=== PATIENT | female | born 1980 | race Caucasian/White ===

== ENCOUNTER 2018-05-25 17:50 | Inpatient (IN) | payer OTHER, MEDICAID, SELFPAY ==
[2018-05-25] VITALS (7 sets, daily range): BP systolic 124–133; BP diastolic 70–84; PULSE 105–120; RESP 20–32; TEMP 37.3–39; O2SAT 79–98; BMI 44.4
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
[2018-05-25] MEDS: ONDANSETRON 4 MG/2 ML INJ IV (18:50)
[2018-05-25] MEDS: ALBUTEROL/IPRATROPIUM 3 ML AMPUL INH ×3 (18:58)
[2018-05-25 19:12] LABS: Add Manual Diff / Slide Review NO; Basophils Absolute Auto 0 /uL (0-100); Basophils Percent Auto 0.4 % (0-2); Eosinophils Absolute Auto 0 /uL (0-450); Hematocrit 41.8 % (36-46); Hemoglobin 13.8 g/dL (12.0-16.0); Lymphocytes Absolute Auto 1500 /uL (1100-4500); Lymphocytes Percent Auto 14.7 % (25-40); Mean Corpuscular HGB Conc 33.1 % (30-36); Mean Corpuscular Hemoglobin 30.3 PG (26-34); Mean Corpuscular Volume 91.6 fL (80-100); Monocytes Absolute Auto 800 /uL (0-900); Monocytes Percent Auto 8.2 % (3-14); Neutrophils Absolute Auto 7800 /uL (1500-7000); Neutrophils Percent Auto 76.7 % (50-75); Platelet Count 294 X10^3/uL (150-400); Red Blood Cell Count 4.57 X10^6/uL (4.0-5.2); Red Cell Distribution Width 14.6 % (11.6-14.8); White Blood Cell Count 10.1 X10^3/uL (4.5-11.0)
[2018-05-25] MEDS: ACETAMINOPHEN 325 MG TABLET 650 MG PO (19:21)
[2018-05-25 19:24] LABS: Alanine Aminotransferase 49 IU/L (9-52); Albumin Globulin Ratio 1.4 (1.0-2.8); Alkaline Phosphatase 80 U/L (38-126); Aspartate Aminotransferase 36 IU/L (14-36); BUN Creatinine Ratio 17.5 (6-22); Bilirubin Total 0.4 mg/dL (0.2-1.3); Blood Urea Nitrogen 14 mg/dL (7-17); Calcium 8.9 mg/dL (8.4-10.2); Carbon Dioxide 34 mmol/L (22-32); Chloride 93 mmol/L (98-107); Estimated Glomerular Filt Rate > 60.0 mL/min (>60); Globulin 2.9 g/dL (1.7-4.1); Glucose 117 mg/dL (70-100); HEMOLYSIS < 15 (0-50); Potassium 3.9 mmol/L (3.4-5.1); Sodium 136 mmol/L (137-145); Total Protein 6.9 g/dL (6.3-8.2)
[2018-05-25] MEDS: methylPREDNISolone 125 MG/2 ML VIAL IV (19:25)
[2018-05-25] MEDS: levoFLOXacin 750 MG/150 ML PIGGYBACK 100 MG IV (19:25)
[2018-05-25] MEDS: SODIUM CHLORIDE 0.9% 500 ML IV (19:31)
[2018-05-25 19:32] LABS: B Type Natriuretic Peptide < 100 (<100)
[2018-05-25 19:46] LABS: Procalcitonin 0.07 ng/mL (<0.5)
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
--- NOTE | 2018-05-25 22:44 | PC.NURSE ---
Pt admitted to acute care from ED. Arrived to unit on 3L O2 via NC SpO2 96%. On cont pulse ox. Receiving fluid bolus of NS per protocol. Lungs are wheezy throughout, although pt appears to be comfortable at rest. Voided using BSC, steady on feet. C/O headache 10/24, provider notified. Awaiting med verification from pharmacy. Pt had multiple home medications with her, sent to pharmacy. A/Ox4, able to make needs known. Call light and bedside table within reach. Will cont to monitor.
[2018-05-25] MEDS: PANTOPRAZOLE 40 MG VIAL IV (23:37)
[2018-05-25] MEDS: MAGNESIUM SULFATE 2 GM/50 ML PIGGYBACK IV (23:38)
[2018-05-25] MEDS: MONTELUKAST 10 MG TABLET PO (23:50)
[2018-05-26] VITALS (12 sets, daily range): BP systolic 116–143; BP diastolic 43–82; PULSE 67–104; RESP 16–25; TEMP 36.1–37; O2SAT 94–99
--- NOTE | 2018-05-26 00:04 | PC.NURSE ---
Addendum entered by Sarah Grande R.N. 05/26/18 06:18: Earlier nasal swab was obtained for respiratory panel by PCR and RSV detected so patient was placed on droplet isolation. Noted O2 sats earlier were dropping down into mid 80's so O2 was increased to 5L/min but then able to weaned down to 3L and was 97%. Currently feeling more SOB and sat at 90% so increased back to 4L/min. Informed patient of results of respiratory panel and need for isolation; verbalizes understanding. Original Note: Patient is alert and oriented. Breath sounds tight with expiratory wheezes/squeak throughout. On oxygen at 3L/min per NC with sat of 92%; SOB at rest. Is on continuous pulse oximetry. Intermittent croupy sounding, nonproductive cough. HRR but tachy at 110 bpm. On telemetry and has been SR-ST. Denies nausea. BT present and abdomen is soft. Independent with bed mobility. SBA to BSC and voiding without dysuria, frequency or urgency. Complains of 7/10 headache exacerbated by cough; Fioricet ordered but unavailable in night pharmacy and too early to give additional Tylenol; message left for in house WELFARE SPECIALIST. Afebrile at current time. Fall risk score is moderate but patient oriented and calls for assist appropriately. TAMEKA stockings applied.
[2018-05-26] MEDS: diphenhydrAMINE 50 MG/ML VIAL 25 MG IV (01:00)
[2018-05-26] MEDS: KETOROLAC 15 MG/ML VIAL IV (01:00)
[2018-05-26] MEDS: PROCHLORPERAZINE 10 MG/2 ML VIAL 5 MG IV (01:00)
[2018-05-26 04:10] LABS: Adenovirus Not Detected (Not Detect); Bordetella pertussis Not Detected (Not Detect); Chlamydophila pneumoniae Not Detected (Not Detect); Coronavirus 229E Not Detected (Not Detect); Coronavirus HKU1 Not Detected (Not Detect); Coronavirus NL 63 Not Detected (Not Detect); Coronavirus OC43 Not Detected (Not Detect); Human Metapneumovirus Not Detected (Not Detect); Human Rhinovirus/Enterovirus Not Detected (Not Detect); Influenza A Not Detected (Not Detect); Influenza B Not Detected (Not Detect); Mycoplasma pneumoniae Not Detected (Not Detect); Parainfluenza Virus 1 Not Detected (Not Detect); Parainfluenza Virus 2 Not Detected (Not Detect); Parainfluenza Virus 3 Not Detected (Not Detect); Parainfluenza Virus 4 Not Detected (Not Detect); Respiratory Syncytial Virus Detected (Not Detect)
[2018-05-26] MEDS: ACETAMINOPHEN 325 MG TABLET 650 MG PO (06:56)
[2018-05-26] MEDS: SODIUM CHLORIDE 0.9% FLUSH 10 ML IV ×3 (07:07→20:09)
[2018-05-26] MEDS: SODIUM CHLORIDE 0.9% 1,000 ML 80 ML IV ×2 (07:07→20:18)
[2018-05-26 07:29] LABS: Add Manual Diff / Slide Review NO; Basophils Absolute Auto 0 /uL (0-100); Basophils Percent Auto 0.2 % (0-2); Eosinophils Absolute Auto 0 /uL (0-450); Hematocrit 41.4 % (36-46); Hemoglobin 13.5 g/dL (12.0-16.0); Lymphocytes Absolute Auto 1000 /uL (1100-4500); Lymphocytes Percent Auto 11.3 % (25-40); Mean Corpuscular HGB Conc 32.5 % (30-36); Mean Corpuscular Hemoglobin 30.2 PG (26-34); Mean Corpuscular Volume 92.9 fL (80-100); Monocytes Absolute Auto 400 /uL (0-900); Monocytes Percent Auto 4.1 % (3-14); Neutrophils Absolute Auto 7300 /uL (1500-7000); Neutrophils Percent Auto 84.4 % (50-75); Platelet Count 255 X10^3/uL (150-400); Red Blood Cell Count 4.46 X10^6/uL (4.0-5.2); White Blood Cell Count 8.7 X10^3/uL (4.5-11.0)
[2018-05-26 07:38] LABS: Blood Urea Nitrogen 15 mg/dL (7-17); Carbon Dioxide 31 mmol/L (22-32); Chloride 100 mmol/L (98-107); Estimated Glomerular Filt Rate > 60.0 mL/min (>60); Glucose 261 mg/dL (70-100); HEMOLYSIS < 15 (0-50); Magnesium 2.8 mg/dL (1.6-2.3); Potassium 4.5 mmol/L (3.4-5.1); Sodium 138 mmol/L (137-145)
--- NOTE | 2018-05-26 08:35 | P.PN_ITS ---
Subjective Interval history: States her breathing is slightly better than prior to admission. There is still some shortness of breath at rest. Exam Vital Signs (past 8 hours): - 05/26/18 01:15 05/26/18 05:00 05/26/18 06:36 Temperature 98.6 F 97.0 F L Pulse Rate 104 H 84 80 Respiratory Rate 25 H 24 20 Blood Pressure 143/82 H 127/43 L Pulse Oximetry 94 97 95 Oxygen Delivery Method Nasal Cannula Oxygen Flow Rate 4 Narrative Exam Narrative: Constitutional: NAD but weak exhausted obese female w/BMI 44.7 and who looks somewhat older than her stated age of 37. Nasal cannula in place for supplemental O2 Neurologic: AOx3, no focal neurological deficits Head: NC, AT Eyes: PERRL, EOMI Nose: external nose normal, mild rhinorrhea, residual blood intranasal (noted to have minor epistaxis recently) Throat: dry MM, oropharynx w/o exudate Neck: no masses, lymphadenopathy, or JVD Chest / Respiratory: On anterior exam there is decreased air entry no rales were present or wheezes Heart / CV: S1S2, no murmur Abdomen / GI: round, NT, ND, + BS, no organomegaly : no suprapubic tenderness, no CVA Peripheral / Vascular: warm to touch, DP and PT pulses palpable, no edema Musc: full ROM of upper and lower extremities, adequate muscle tone and bulk Skin: Bruising on the abdomen from Lovenox shots at [facility] Objective Labs Result Diagrams: 05/26/18 06:40 05/26/18 06:40 Labs: Laboratory Results - last 24 hr 05/25/18 05/25/18 05/25/18 18:55 18:55 18:55 WBC 10.1 RBC 4.57 Hgb 13.8 Hct 41.8 MCV 91.6 MCH 30.3 MCHC 33.1 RDW 14.6 Plt Count 294 Neut % (Auto) 76.7 H Lymph % (Auto) 14.7 L [place] % (Auto) 8.2 Eos % (Auto) 0.0 L Baso % (Auto) 0.4 Neut # (Auto) 7800 H Lymph # (Auto) 1500 [place] # (Auto) 800 Eos # (Auto) 0 Baso # (Auto) 0 Sodium 136 L Potassium 3.9 Chloride 93 L Carbon Dioxide 34 H BUN 14 Creatinine 0.80 Estimated GFR > 60.0 BUN/Creatinine Ratio 17.5 Glucose 117 H Lactate Calcium 8.9 Magnesium Total Bilirubin 0.4 AST 36 ALT 49 Alkaline Phosphatase 80 B-Natriuretic Peptide < 100 Total Protein 6.9 Albumin 4.0 Globulin 2.9 Albumin/Globulin Ratio 1.4 Procalcitonin 0.07 Chlamy pneumoniae PCR Adenovirus (PCR) B.parapertussis DNA PCR Coronavirus OC43 (PCR) Coronavirus HKU1 (PCR) Coronavirus 229E (PCR) Coronavirus NL63 (PCR) Human Metapneumovir PCR Influenza Type A (PCR) Influenza Type B (PCR) M. pneumoniae (PCR) Parainfluenza 1 (PCR) Parainfluenza 2 (PCR) Parainfluenza 3 (PCR) Parainfluenza 4 (PCR) RSV (PCR) Entero/Rhino (PCR) 05/25/18 05/26/18 05/26/18 18:55 02:46 06:40 WBC 8.7 RBC 4.46 Hgb 13.5 Hct 41.4 MCV 92.9 MCH 30.2 MCHC 32.5 RDW 15.0 H Plt Count 255 Neut % (Auto) 84.4 H Lymph % (Auto) 11.3 L [place] % (Auto) 4.1 Eos % (Auto) 0.0 L Baso % (Auto) 0.2 Neut # (Auto) 7300 H Lymph # (Auto) 1000 L [place] # (Auto) 400 Eos # (Auto) 0 Baso # (Auto) 0 Sodium Potassium Chloride Carbon Dioxide BUN Creatinine Estimated GFR BUN/Creatinine Ratio Glucose Lactate 1.0 Calcium Magnesium Total Bilirubin AST ALT Alkaline Phosphatase B-Natriuretic Peptide Total Protein Albumin Globulin Albumin/Globulin Ratio Procalcitonin Chlamy pneumoniae PCR Not detected Adenovirus (PCR) Not detected B.parapertussis DNA PCR Not detected Coronavirus OC43 (PCR) Not detected Coronavirus HKU1 (PCR) Not detected Coronavirus 229E (PCR) Not detected Coronavirus NL63 (PCR) Not detected Human Metapneumovir PCR Not detected Influenza Type A (PCR) Not detected Influenza Type B (PCR) Not detected M. pneumoniae (PCR) Not detected Parainfluenza 1 (PCR) Not detected Parainfluenza 2 (PCR) Not detected Parainfluenza 3 (PCR) Not detected Parainfluenza 4 (PCR) Not detected RSV (PCR) Detected H Entero/Rhino (PCR) Not detected 05/26/18 06:40 WBC RBC Hgb Hct MCV MCH MCHC RDW Plt Count Neut % (Auto) Lymph % (Auto) [place] % (Auto) Eos % (Auto) Baso % (Auto) Neut # (Auto) Lymph # (Auto) [place] # (Auto) Eos # (Auto) Baso # (Auto) Sodium 138 Potassium 4.5 Chloride 100 Carbon Dioxide 31 BUN 15 Creatinine 0.60 Estimated GFR > 60.0 BUN/Creatinine Ratio 25.0 H Glucose 261 H D Lactate Calcium 8.0 L Magnesium 2.8 H Total Bilirubin AST ALT Alkaline Phosphatase B-Natriuretic Peptide Total Protein Albumin Globulin Albumin/Globulin Ratio Procalcitonin Chlamy pneumoniae PCR Adenovirus (PCR) B.parapertussis DNA PCR Coronavirus OC43 (PCR) Coronavirus HKU1 (PCR) Coronavirus 229E (PCR) Coronavirus NL63 (PCR) Human Metapneumovir PCR Influenza Type A (PCR) Influenza Type B (PCR) M. pneumoniae (PCR) Parainfluenza 1 (PCR) Parainfluenza 2 (PCR) Parainfluenza 3 (PCR) Parainfluenza 4 (PCR) RSV (PCR) Entero/Rhino (PCR) Assessment & Plan Assessment Narrative: 1. Acute respiratory failure with hypoxia, present admission -This is 2/2 acute asthma exacerbation -CXR with decreased lung volumes and hazy ill-defined ground glass opacities throughout both lungs. No pleural effusion or pneumothorax. -Febrile, tachypneic, tachycardic and hypoxic on presentation. Initial labs unremarkable for leukocytosis, elevated lactate, and positive procalcitonin level. - she will be on Telemetry -continue scheduled albuterol treatments Q4H. Adjust per RT protocol -continue Solu-Medrol 60 mg IV BID -continue which Singulair 10 mg daily at bedtime which was started on admission -continue Protonix 40 mg IV daily, d/c at discharge -Respiratory viral panel was ordered on admission and will follow -Blood Cx and sputum cx pending -Continue levofloxacin to complete a 5 day course, last day on 05/26/18 then d/c 2. Acute headache, present on admission, severe -resolve when seen this morning -Headache cocktail with IV Toradol, Benadryl, and Compazine x1 was given on admission Hypovolemia, present on admission This was 2/2 increased metabolic demand in the setting of respiratory failure an d febrile state -IVF bolus per sepsis protocol, followed by IV maintenance fluids at 80 ml / hr -serial BMPs
[2018-05-26] MEDS: levoFLOXacin 250 MG TABLET 750 MG PO (09:00)
[2018-05-26] MEDS: INFLUENZA VACCINE 0.5 ML SYRINGE IM (09:00)
[2018-05-26] MEDS: methylPREDNISolone 125 MG/2 ML VIAL 60 MG IV ×2 (09:00→20:07)
[2018-05-26] MEDS: PANTOPRAZOLE 40 MG VIAL IV (09:00)
[2018-05-26] MEDS: ALBUTEROL 2.5 MG/3 ML NEB (ADULT) INH ×4 (10:20→21:05)
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
[2018-05-26] MEDS: MONTELUKAST 10 MG TABLET PO (17:46)
[2018-05-26] MEDS: ENOXAPARIN 30 MG/0.3 ML SYRINGE SUBCUT (20:07)
--- NOTE | 2018-05-26 21:24 | PC.NURSE ---
2000- titrated O2 down to 2Lnc humidified, SpO2 95%, provided pt with Q-tips and lub jelly for nare comfort, LS insp/exp audible and ascultation wheezes, SOB with exertion and slight at rest, non-productive intermittent cough LAC NS @ 80. VSS, tele in place with NSR x 2. 1PA to BSC, bed alarm on.
[2018-05-27] VITALS (15 sets, daily range): BP systolic 116–140; BP diastolic 67–83; PULSE 66–82; RESP 16–20; TEMP 36.4–36.9; O2SAT 91–98
--- NOTE | 2018-05-27 00:44 | PC.NURSE ---
Addendum entered by Sarah Grande R.N. 05/27/18 01:05: Medicated with Tessalon for complaint of cough. Original Note: Patient is alert and oriented. Breath sounds with improved aeration but increased expiratory rhonchi and still tight sounding. States she has had cough productive of white sputum. Oxygen at 2L/min per NC with sat of 96%; remains on continuous pulse oximetry. HRR; telemetry reading was SR w/BBB. Denies nausea. BT present and is passing flatus. Denies dysuria, frequency or urgency. Turns self in bed and gets up to BSC with SBA. Denies any pain at present time. Wearing bilateral TAMEKA stockings; states she is experiencing some numbness in right foot which she has had in past. Fall risk score is moderate; bed alarm is activated for safety and patient verbalizes understanding. Continues on droplet precautions due to RSV positive.
[2018-05-27] MEDS: BENZONATATE 100 MG CAPSULE PO ×2 (01:04→17:08)
[2018-05-27] MEDS: ALBUTEROL 2.5 MG/3 ML NEB (ADULT) INH ×6 (03:51→23:56)
[2018-05-27 05:38] LABS: Add Manual Diff / Slide Review NO; Basophils Absolute Auto 100 /uL (0-100); Basophils Percent Auto 0.6 % (0-2); Eosinophils Absolute Auto 0 /uL (0-450); Hematocrit 40.7 % (36-46); Lymphocytes Absolute Auto 1800 /uL (1100-4500); Mean Corpuscular HGB Conc 31.9 % (30-36); Mean Corpuscular Hemoglobin 29.9 PG (26-34); Mean Corpuscular Volume 93.7 fL (80-100); Monocytes Absolute Auto 1000 /uL (0-900); Monocytes Percent Auto 9.1 % (3-14); Neutrophils Absolute Auto 8600 /uL (1500-7000); Neutrophils Percent Auto 74.3 % (50-75); Platelet Count 264 X10^3/uL (150-400); Red Blood Cell Count 4.35 X10^6/uL (4.0-5.2); Red Cell Distribution Width 15.1 % (11.6-14.8); White Blood Cell Count 11.5 X10^3/uL (4.5-11.0)
[2018-05-27 05:45] LABS: BUN Creatinine Ratio 28.3 (6-22); Blood Urea Nitrogen 17 mg/dL (7-17); Calcium 8.5 mg/dL (8.4-10.2); Carbon Dioxide 34 mmol/L (22-32); Chloride 98 mmol/L (98-107); Estimated Glomerular Filt Rate > 60.0 mL/min (>60); Glucose 310 mg/dL (70-100); HEMOLYSIS < 15 (0-50); Magnesium 2.4 mg/dL (1.6-2.3); Potassium 4.7 mmol/L (3.4-5.1); Sodium 138 mmol/L (137-145)
--- NOTE | 2018-05-27 06:00 | DI.RAD.S_ITS ---
PROCEDURE: XR CHEST 2V INDICATIONS: PNA / asthma exacerbation / hypoxia TECHNIQUE: 2 views of the chest were acquired. COMPARISON: [facility], CR, XR CHEST 2V, 05/25/2018, 18:27. FINDINGS: Surgical changes and devices: None. Lungs and pleura: No acute consolidation. Scattered subsegmental atelectasis and/or scarring. No pleural effusions or pneumothorax. Decreased lung volumes as before Mediastinum: Mediastinal contours are normal. Heart size is normal. Bones and chest wall: No suspicious bony abnormalities. Soft tissues appear unremarkable. IMPRESSION: No acute consolidation or interval change. Scattered subsegmental atelectasis and/or scarring. No definite evidence of pulmonary edema. Dictated by: Jesus Jack M.D. on 05/27/2018 at 8:25 Approved by: Jesus Jack M.D. on 05/27/2018 at 8:27
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
[2018-05-27] MEDS: SODIUM CHLORIDE 0.9% FLUSH 10 ML IV ×2 (08:55→21:04)
[2018-05-27] MEDS: NICOTINE 7 MG PATCH TOP (08:55)
[2018-05-27] MEDS: ENOXAPARIN 30 MG/0.3 ML SYRINGE SUBCUT ×2 (08:55→21:04)
[2018-05-27] MEDS: methylPREDNISolone 125 MG/2 ML VIAL 60 MG IV ×2 (08:55→21:04)
[2018-05-27] MEDS: PANTOPRAZOLE 40 MG VIAL IV (08:55)
[2018-05-27] MEDS: ACETAMINOPHEN 325 MG TABLET 650 MG PO (08:55)
[2018-05-27 09:04] LABS: Hemoglobin A1C% w Est Avg Glu 7.9 % (4.0-6.0)
[2018-05-27] MEDS: INSULIN ASPART 100 UNIT/ML INSULN PEN SUBCUT ×3 (12:01→21:05)
--- NOTE | 2018-05-27 14:09 | PC.NURSE ---
Day shift: Pt tearful w/ some anxiety. As MD if Ativan PO would be ok. MD said yes. Will give and continue to monitor Pt.
[2018-05-27] MEDS: LORazepam 0.5 MG TABLET PO (14:12)
[2018-05-27] MEDS: MONTELUKAST 10 MG TABLET PO (17:09)
[2018-05-28] VITALS (9 sets, daily range): BP systolic 116–146; BP diastolic 75–92; PULSE 68–89; RESP 18–26; TEMP 36.4–36.9; O2SAT 92–96
[2018-05-28] MEDS: LORazepam 0.5 MG TABLET PO ×2 (00:32→17:33)
[2018-05-28] MEDS: ALBUTEROL 2.5 MG/3 ML NEB (ADULT) INH ×4 (04:04→20:56)
[2018-05-28] MEDS: BENZONATATE 100 MG CAPSULE PO ×2 (06:26→17:30)
[2018-05-28] MEDS: ENOXAPARIN 30 MG/0.3 ML SYRINGE SUBCUT ×2 (08:32→21:31)
[2018-05-28] MEDS: INSULIN ASPART 100 UNIT/ML INSULN PEN SUBCUT ×4 (08:32→21:36)
[2018-05-28] MEDS: methylPREDNISolone 125 MG/2 ML VIAL 60 MG IV ×2 (08:32→21:31)
[2018-05-28] MEDS: PANTOPRAZOLE 40 MG VIAL IV (08:33)
[2018-05-28] MEDS: NICOTINE 7 MG PATCH TOP (08:33)
[2018-05-28] MEDS: SODIUM CHLORIDE 0.9% FLUSH 10 ML IV ×2 (08:36→21:36)
[2018-05-28] MEDS: ACETAMINOPHEN 325 MG TABLET 650 MG PO (08:39)
--- NOTE | 2018-05-28 14:48 | P.PN_ITS ---
Subjective Date Patient Seen: 05/28/18 Interval history: Chart reviewed patient seen and examined. Patient reports she feels significantly improved. She became ill prior to admission and was seen at [facility] and sent home on oxygen. She continues to require oxygen. She desaturates to less than 90% on room air. She continues to have a cough although nonproductive. She has no complaint of headache today. Exam Vital Signs (past 8 hours): - 05/28/18 08:00 05/28/18 08:30 05/28/18 11:58 Temperature 98.5 F 98.3 F Pulse Rate 73 74 89 Respiratory Rate 24 18 20 Blood Pressure 116/75 134/80 Pulse Oximetry 95 96 92 05/28/18 13:34 Temperature Pulse Rate 81 Respiratory Rate 20 Blood Pressure Pulse Oximetry 94 Fraction of Inspired Oxygen 28 Oxygen Delivery Method Nasal Cannula Oxygen Flow Rate 1 Narrative Exam Narrative: Pleasant female resting comfortably somewhat short of breath without oxygen Lungs decreased breath sounds with occasional scattered crackles Cardiac exam regular rate and rhythm normal S1-S2 Abdomen soft nontender nondistended Extremity no edema Objective Labs Result Diagrams: 05/27/18 05:25 05/27/18 05:25 Assessment & Plan Assessment Narrative: Acute hypoxic respiratory failure secondary to RSV, present on admission Sepsis, acute, present on admission, now resolved Acute exacerbation of asthma, present on admission Morbid obesity, present on admission Acute severe headache, resolved Hypovolemia, present on admission, acute, now resolved Plan Narrative: Continue current treatment plan. Will continue to taper oxygen. Anticipate discharge home when the patient no longer requires oxygen when ambulating. Will continue nebulizers and other treatments.
[2018-05-28] MEDS: MONTELUKAST 10 MG TABLET PO (17:29)
[2018-05-29] VITALS (13 sets, daily range): BP systolic 111–150; BP diastolic 60–92; PULSE 76–99; RESP 16–21; TEMP 36.4–36.9; O2SAT 90–97
--- NOTE | 2018-05-29 | DI.CT.S_ITS ---
PROCEDURE: CT ANGIO CHEST PE PROTOCOL INDICATIONS: shortness of breath TECHNIQUE: After the administration of intravenous contrast, 2 mm thick sections acquired from the pulmonary apices to the posterior costophrenic angles. 3-dimensional maximum intensity projection (MIP) coronal and sagittal reformats were then acquired through the thorax. For radiation dose reduction, the following was used: automated exposure control, adjustment of mA and/or kV according to patient size. COMPARISON: None. FINDINGS: Image quality: Excellent. Pulmonary arteries: Pulmonary arteries are normal in size, and demonstrate no intraluminal filling defects to suggest central pulmonary embolism. Lungs and pleura: Mild pulmonary opacities are present in the bilateral lung bases. No pleural effusion or pneumothorax. Mediastinum: Heart size is normal, without pericardial effusion. No mediastinal or hilar adenopathy. Thoracic aorta is normal in caliber and enhancement. Esophagus is normal in caliber, without hiatal hernia. Bones and chest wall: No suspicious bony lesions. Ribs and thoracic spine appear intact throughout. Thyroid gland is unremarkable. No axillary or supraclavicular adenopathy. Abdomen: Visualized upper abdominal solid organs appear normal in the early arterial phase of enhancement. IMPRESSION: 1. No acute pulmonary embolus. 2. Trace pulmonary radiopacities are present in the dependent lungs bilaterally suggesting mild aspiration or infection. Dictated by: Sierra Cheung M.D. on 05/29/2018 at 9:15 Approved by: Sierra Cheung M.D. on 05/29/2018 at 9:17
--- NOTE | 2018-05-29 01:24 | PC.NURSE ---
Addendum entered by Sarah Grande R.N. 05/29/18 05:36: Up to bathroom and noted sat without oxygen down to 79% when back to bed; back on oxygen now. Provided I.S. and instructed in use; patient did return demonstration and verbalizes correct procedure. Original Note: Addendum entered by Sarah Grande R.N. 05/29/18 04:10: Complains of headache with 7/10 severity not a migraine; medicated with Tylenol. Original Note: Addendum entered by Sarah Grande R.N. 05/29/18 03:10: Sat currently 95% on 2L/min oxygen so decreased to 1.5L/min Original Note: Patient is alert and oriented. Breath sounds with improved inspiration but still with expiratory rhonchi throughout. Croupy sounding cough which she states is still occasionally productive of white sputum. Oxygen fell off while patient asleep and RA sat was 68%; now back on oxygen at 2L/min per NC with sat of 92%. HRR. Is on telemetry and was SR at last reading. BP elevated at 145/79. Denies nausea. BT present and abdomen is soft. Denies dysuria, frequency or urgency. Up to bathroom to void with SBA. Denies pain. Wearing bilateral TAMEKA stockings. Remains in droplet precautions due to RSV positive. Fall risk score is moderate; patient oriented and calls for assistance appropriately.
[2018-05-29] MEDS: ACETAMINOPHEN 325 MG TABLET 650 MG PO ×2 (04:07→23:36)
[2018-05-29] MEDS: ALBUTEROL 2.5 MG/3 ML NEB (ADULT) INH ×2 (04:41→11:26)
--- NOTE | 2018-05-29 08:30 | PC.NURSE ---
Day shift: Pt off unit at approx 0830 for imaging.
[2018-05-29] MEDS: INSULIN ASPART 100 UNIT/ML INSULN PEN SUBCUT ×5 (09:03→20:55)
[2018-05-29] MEDS: ENOXAPARIN 30 MG/0.3 ML SYRINGE SUBCUT ×2 (09:04→20:58)
[2018-05-29] MEDS: methylPREDNISolone 125 MG/2 ML VIAL 60 MG IV (09:05)
[2018-05-29] MEDS: NICOTINE 7 MG PATCH TOP (09:05)
[2018-05-29] MEDS: PANTOPRAZOLE 40 MG VIAL IV (09:06)
[2018-05-29] MEDS: SODIUM CHLORIDE 0.9% FLUSH 10 ML IV ×2 (09:06→20:58)
[2018-05-29] MEDS: LORazepam 0.5 MG TABLET PO (11:01)
[2018-05-29] MEDS: BENZONATATE 100 MG CAPSULE PO ×3 (12:41→20:55)
--- NOTE | 2018-05-29 12:56 | PM.PN.1 ---
Subjective Date Patient Seen: 05/29/18 Interval history: Patient seen and examined chart reviewed Patient continues to have significant cough with productive white phlegm. She has marked bronchospasm. She also remains hypoxic. At rest she is 88% on room air. Apparently the patient got up to go to the bathroom last evening and her oxygen saturation dropped into the 60 percentile range. She is still wheezing. She is anxious. Exam Vital Signs (past 8 hours): - 05/29/18 05:46 05/29/18 06:23 05/29/18 08:26 Temperature 97.5 F L 98.4 F Pulse Rate 95 H 92 H Respiratory Rate 19 16 Blood Pressure 146/84 H 150/92 H Pulse Oximetry 90 L 92 93 05/29/18 11:50 05/29/18 12:00 Temperature 98.4 F Pulse Rate 88 84 Respiratory Rate 18 18 Blood Pressure 142/90 H Pulse Oximetry 95 95 Fraction of Inspired Oxygen 28 Oxygen Delivery Method Room Air Oxygen Flow Rate 1.5 Narrative Exam Narrative: Ill appearing female hypoxic with good cough Lungs: Decreased breath sounds with end-expiratory wheezing and a prolonged expiratory phase Cardiac exam: Regular rate and rhythm normal S1-S2 Abdomen: Soft nontender nondistended Extremities: No edema Objective Labs Result Diagrams: 05/27/18 05:25 05/27/18 05:25 Assessment & Plan Assessment Narrative: Acute hypoxic respiratory failure secondary to RSV pneumonia, present on admission Acute asthma exacerbation, present on admission Morbid obesity Hypovolemia, resolved, present on admission Headache, chronic Sepsis, resolved, present on admission Plan Narrative: Patient will be switched from Solu-Medrol to oral prednisone. Will add budesonide inhaler to her regimen. Will consult respiratory therapy for chest PT given her significant phlegm production. Will schedule her Tessalon Perles as well. Will continue to taper oxygen as she tolerates it. Will continue albuterol and add Atrovent inhalers to her regimen as well. Anticipate discharge home when the patient is no longer significantly hypoxic on room air.
[2018-05-29] MEDS: predniSONE 20 MG TABLET 40 MG PO (13:19)
[2018-05-29] MEDS: ALBUTEROL/IPRATROPIUM 3 ML AMPUL INH ×3 (15:23→23:25)
[2018-05-29] MEDS: MONTELUKAST 10 MG TABLET PO (17:32)
[2018-05-29] MEDS: BUDESONIDE 120 PUFF/DEVICE INHALER INH (20:00)
[2018-05-29] MEDS: INSULIN GLARGINE 100 UNIT/ML 3ML PEN 20 UNIT SUBCUT (20:55)
--- NOTE | 2018-05-30 00:03 | PC.NURSE ---
Nurse note: CBG's continue to be high tonight, before dinner CBG 431, I gave patient SS Novolog & then notified Dr Finnegan of CBG. She said she would titrate Insulin order. New order for 5 units of Novolog given. At bedtime CBG 431 again, 7 units SS Novolog given as well as new order for Lantus 20 units. Teaching explained to patient about new medication. Patient repeatedly asking for sugary snacks saying I know I am not supposed to have that, sugar free popsicles and sugar free pudding given. Requesting sugar free soda, patient aware to order soda on meal trays & that we do not have access to soda. VS stable tonight. 2L O2 sat 92-96%, takes O2 off to ambulate to BR, sats dropping to 84-85% when she returns to bed, SOB with exertion, becomes increasingly wheezy with activity. RT in room to give neb treatments. Pt with active coarse cough often, receiving Tessalon pearls as scheduled. She remains calm, cooperative & Ox3 tonight, using call button appropriately.
--- NOTE | 2018-05-30 01:27 | PC.NURSE ---
Addendum entered by Sarah Grande R.N. 05/30/18 03:28: Patient complaining of itchiness on extremities and back; no rash noted. Unrelieved with any intervention so requesting Benadryl. Dr Eng contacted and new orders received. Original Note: [id number] Patient seen and assessed. Is alert and oriented. Breath sounds improving with increased air exchange and only scattered expiratory rhonchi. Cough remains croupy sounding and patient still states she has white sputum with cough. Was on 2L oxygen at shift change with sat of 97% so decreased to 1L/min and now sat is 94%. HRR. Denies nausea. BT present and abdomen is soft. Denies urinary problems. Is independent with bed mobility and goes to bathroom with SBA. Wearing bilateral TAMEKA stockings. Complains of 8/10 headache so medicated with Tylenol. Fall risk score is moderate. Remains on droplet precautions related to RSV
[2018-05-30 03:00] VITALS: BP 124/74; PULSE 76; RESP 19; TEMP 36.6; O2SAT 97
[2018-05-30 03:24] VITALS: O2SAT 96
[2018-05-30] MEDS: ALBUTEROL/IPRATROPIUM 3 ML AMPUL INH ×3 (03:24→11:12)
[2018-05-30] MEDS: diphenhydrAMINE 25 MG TABLET PO (03:48)
[2018-05-30 05:13] VITALS: O2SAT 97
[2018-05-30] MEDS: BUDESONIDE 120 PUFF/DEVICE INHALER INH (07:30)
[2018-05-30 07:33] VITALS: PULSE 68; RESP 16; O2SAT 96
[2018-05-30 07:49] VITALS: BP 112/69; PULSE 75; RESP 18; TEMP 36.6; O2SAT 95
--- NOTE | 2018-05-30 08:00 | PM.DS.1 ---
History of Present Illness Date Patient Seen: 05/30/18 Chief complaint: bronchitis Narrative: The patient is a 37-year-old female who presented to the ED with shortness of breath. Patient recently hospitalized at [facility], 05/22 to 05/24, for an acute asthma exacerbation, bronchitis, and hypoxia. Patient may potentially been discharged prematurely with condition at discharge listed is fair, at that time she still required 2-3 L of oxygen. Typically is not oxygen dependent. The patient did request a premature discharge out of concern for the snowstorm. Upon arrival home patient continued to feel weak with associated symptoms of a cough w/ clear purulence (no increase in quantity of phlegm), generalized malaise, and generalized myopathy, fever, headache, dizziness, and lightheadedness. She felt short of breath and used her bronchodilators every 2 hours with minimal reported relief. She did up titrate O2 level while at home. Denies chest pain, pleurisy, peripheral edema, orthopnea, PND, abdominal pain, gastrointestinal distress, dysuria, and blood in urine or stool. Patient reports having good overall asthma control, however also mentions 3 to for asthma exacerbations annually. Her home treatment involves intermittent use of albuterol. With exception of aforementioned hospitalization, her most recent exacerbation was in January of 2018. Patient admits to tobacco use for 18 years, half a pack a day, quit 12 days ago. 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 D/C from [facility] w/ Pulmicort, DuoNeb inhaler, tapering course of steroids, and oral Levaquin (completed a 5 day course). Because of the patient's significant hypoxia a CT angio was obtained which was negative for pulmonary embolus. Patient did have bibasilar atelectasis versus infiltrate. In addition the patient blood sugars remain markedly elevated during the hospital. Hemoglobin A1c was elevated at 7.9. Patient very likely has undiagnosed type 2 diabetes she will follow up with her primary care physician for further evaluation. At this time will taper her prednisone. Will start her on metformin. Will instruct the patient on Chemsticks and follow up as an outpatient. Discharge Providers Date of admission: 05/25/18 21:05 Consults: 05/25/18 21:52 Consult to Discharge Planning Routine Comment: 05/27/18 08:25 Consult to Dietitian, Adult Routine Comment: Reason For Exam: diabetes Consult to Discharge Planning Routine Comment: 05/29/18 12:53 Consult to Respiratory Therapy Evaluate & Treat Comment: Chest PT twice daily Physician Instructions: Evaluate and treat 05/29/18 14:33 Consult to Physical Therapy Evaluate & Treat Comment: Physician Instructions: Evaluate and Treat Discharge provider: Lori Finnegan MD Discharge Date: 05/30/18 Summary Discharge Diagnosis: Acute hypoxic respiratory failure, present on admission Pneumonia, secondary to RSV infection bilateral lower lobes, present on admission Acute asthma exacerbation, present on admission Morbid obesity Sepsis, present on admission, resolved Hypovolemia, present on admission, resolved Headache, improved New Onset Type 2 diabetes, HBG A1C 7.9 Hospital Course: Patient is a 37-year-old female who was recently hospitalized at [facility] May 22 through May 24. Patient was discharged home. She was treated for community-acquired pneumonia and asthma exacerbation. After the patient returned home she became increasingly short of breath. She was using her inhalers more frequently and increasing her oxygen. Patient was hospitalized and found to have RSV pneumonia. She was given IV fluids for dehydration. In addition the patient continued to require high amount of oxygen both at rest and with activity. She was treated with steroids nebulizers and oxygen. She had few episodes of headache which was treated as well. The patient continued to improve although slowly. She was ultimately able to be taken off oxygen at rest and with activity. She was deemed appropriate for discharge home. Status at Discharge Functional status at discharge: independent ambulation Overall status at discharge: patient is back to baseline Time Spent with Patient Less than 30 minutes Exam Vital Signs (past 8 hours): - 05/30/18 03:00 05/30/18 03:24 05/30/18 05:13 Temperature 97.8 F Pulse Rate 76 Respiratory Rate 19 Blood Pressure 124/74 Pulse Oximetry 97 96 97 05/30/18 07:33 Temperature Pulse Rate 68 Respiratory Rate 16 Blood Pressure Pulse Oximetry 96 Fraction of Inspired Oxygen 21 Oxygen Delivery Method Room Air Oxygen Flow Rate 0 Narrative Exam Narrative: Pleasant female resting comfortably Lungs: Decreased breath sounds with occasional end-expiratory wheezing Cardiac exam regular rate and rhythm normal S1-S2 Abdomen soft nontender nondistended Extremities no edema Objective Labs Result Diagrams: 05/27/18 05:25 05/27/18 05:25 Discharge Plan Discharge Plan Patient Disposition: Home Discharge comment: Patient will follow up next week with her primary care physician next week. Discharge Med Rec/Prescriptions Prescriptions: New benzonatate 100 mg Capsule 100 mg PO TID 5 Days Qty: 15 RF: 0 Pulmicort Flexhaler 180 mcg/actuation Aerosol Powdr Breath Activated 2 puff INH RTBID 30 Days RF: 3 prednisone 20 mg Tablet 40 mg PO DAILY 3 Days RF: 0 Continued ipratropium-albuterol 0.5 mg-3 mg(2.5 mg base)/3 mL Solution For Nebulization 1 inh Inhalation Q3-4H PRN (Reason: SOB) RF: 0 hydrocodone-acetaminophen 5-325 mg Tablet 1 tab PO Q6H PRN (Reason: Pain (Scale Score 1-3)) RF: 0 ProAir HFA 90 mcg/actuation Hfa Aerosol Inhaler 2 puff INHALATION QID PRN (Reason: Pain (Scale Score 1-3)) RF: 0 Robitussin Cough and Cold CF 2.5-5-50 mg/5 mL Liquid 20 ml PO Q4H PRN (Reason: Pain (Scale Score 1-3)) RF: 0 acetaminophen [Tylenol] 325 mg Capsule 650 mg PO Q4H PRN (Reason: Pain (Scale Score 1-3)) RF: 0 Discontinued prednisone 10 mg Tablet 10 mg PO BID RF: 0 levofloxacin [Levaquin] 750 mg Tablet 750 mg PO DAILY RF: 0 Provider Discharge Instructions Diet: Regular Diet comment: Regular consistency Activity: As tolerated Oxygen: Patient should not need oxygen Other treatments: Continue albuterol Atrovent nebulized Discharge Data Attending Provider: Matthew Agosto Admit Date/Time: 05/25/18 21:05
[2018-05-30] MEDS: INSULIN ASPART 100 UNIT/ML INSULN PEN SUBCUT ×2 (08:06→12:23)
[2018-05-30] MEDS: ENOXAPARIN 30 MG/0.3 ML SYRINGE SUBCUT (08:08)
[2018-05-30] MEDS: NICOTINE 7 MG PATCH TOP (08:08)
[2018-05-30] MEDS: BENZONATATE 100 MG CAPSULE PO (08:08)
[2018-05-30] MEDS: predniSONE 20 MG TABLET 40 MG PO (08:09)
[2018-05-30] MEDS: PANTOPRAZOLE 40 MG VIAL IV (08:18)
[2018-05-30] MEDS: ACETAMINOPHEN 325 MG TABLET 650 MG PO (08:19)
[2018-05-30 11:22] VITALS: PULSE 71; RESP 16; O2SAT 93
--- NOTE | 2018-05-30 11:54 | PC.NURSE ---
Pt has been ambulated around the [facility] by PT and has maintained an O2 sat above 92% with minor SOB with activity. She was able to recover her breathing quickly.
--- NOTE | 2018-05-30 12:24 | PT.IIE ---
Current Diagnoses Sepsis, unspecified organism (05/25/18) Pruritus, unspecified (05/25/18) Medical History (Last Reviewed 05/26/18 @ 06:16 by CAROL Brice) Asthma (Acute) Physical Therapy Inpatient Evaluation/Re-Eval M1 PT/OT-IP Prior Functional Status Start: 05/30/18 12:01 Freq: NEEDED Status: Active Protocol: Document 05/30/18 09:50 HH (Rec: 05/30/18 12:23 [email or web address]) Medical Review Prior Functional Status Medical History Reviewed Yes Communication No communication deficits noted Mobility and Gait Pt was an independent ambulation at home and community without using AD. 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 Activities of Daily Living and IADL's Pt was independent for all ADLs and IADLs. Social History Household Members friend(s) other Living Arrangements Mobile home Number of Floors (Floors) One Floor Number of Stairs To Enter/Railing? 3 BROOKE with R rail Home Environment Walk in Shower Employment Status Data [employer] Employed Additional Social History Comment Pt lives in a mobile home with 2 roommates and 3 kids and some pets [place] [facility]. 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 Pt was admitted to [facility] 05/22/09 -05/24/18 due to acute asthma, bronchitis and hypoxia and was prematurely d/c to home due to her concerns of snow. Pt cont to have increased weakness and SOB who was then admitted to on 05/25. Pt states she has portable O2 after d/c from [facility] and she used 2.5L O2 from time to time. M2 PT-IP Current Condition Start: 05/30/18 12:01 Freq: NEEDED Status: Active Protocol: Document 05/30/18 09:50 HH (Rec: 05/30/18 12:23 [email or web address]) Physical Therapy Current Condition Current Condition Evaluation Date 05/30/18 Treatment Diagnosis Acute hypoxic respiratory failure, generalized muscle weakness Onset Date 05/25/18 Weight Bearing Status Weight Bearing Status Weight Bear as Tolerated M3 PT-IP Subjective Start: 05/30/18 12:01 Freq: NEEDED Status: Active Protocol: Document 05/30/18 09:50 HH (Rec: 05/30/18 12:23 [email or web address]) Subjective Physical Therapy Visit Type Type Initial Evaluation Visit Start Time 09:50 Visit Stop Time 10:10 Total Visit Minutes 20 Notes RN states wants to know pt' s O2 sat status during mobility. Pt agreeable to mobilize with PT. Pt cont to wheeze and cough from time to time especially during exertion. Droplet precautions on. Number of MALLET AND DIE CUTTER Visits 0 Physical Therapy Visit Comments Patient Comments I feel so much better today. Patient Goals To return home Therapy Pain Assessment Pain Present Pain Present Denied Pain M4 PT-IP Mobility and Gait Start: 05/30/18 12:01 Freq: NEEDED Status: Active Protocol: Document 05/30/18 09:50 HH (Rec: 05/30/18 12:23 [email or web address]) PT-Bed Mobility Assessment Scooting Scooting to Edge of Bed Independent PT-Transfer Assessment Sit to and From Stand Sit to and from Stand Independent Equipment Transfer Assistive Device Gait Belt Transfers Transfer Destination Bed Chair Toilet Transfer Technique Stand Step Pivot Transfer Ability Level of Assist Independent Comments Mobility Comments Pt was using toilet without NC independently upon assessment . Her O2 sat went down to 88% while she was pulling her brief from her ankles, but it was recovered within 10 secs after she stood up. Pt went back to chair and performed 5 times STS in 5 seconds and her O2 sat went down to 89% without NC. She recovered back to 94% within 10 secs again after. Gait Assessment Gait Gait Assistance Required: Independent Distance (Feet) 200 Able to Maintain Weight Bearing Status Yes During Gait Assistive Devices Assistive Device Gait Belt Gait Deviations General Gait Pattern Within Normal Limits Factors Limiting Gait Function Factors Limiting Gait Function Decreased Activity Tolerance Respiratory Distress Comments Gait Comments Pt amb from EOB to hallway for 2 loops without AD independently. Pt did not appear acute distress or signs of LOB. She does state she is walking slower than before. Pt did cough on and off but did not c/o any discomfort. I feel good today. Stair Climbing Assessment Evaluation Level of Assist On Stairs Independent Technique/Endurance Stair Climbing Direction Ascend and Descend Stair Climbing Technique Step Over Step Number of Steps Climbed 3 Query Text: Stair Climbing Set # Repetitions (reps) 2 Comments Stair Climbing Comments independent without rails. Pt did get SOB for each trial but O2 was able to maintain at 90s % without NC. PT-Balance Assessment Sitting Balance and Reactions Static Sitting Balance Ability Normal Dynamic Sitting Balance Ability Normal Standing Balance and Reactions Static Standing Balance Ability Normal Dynamic Standing Balance Ability Normal Functional Assessments Functional Tests 5 Times Sit to Stand 15 M5 PT-IP Objective Assessments Start: 05/30/18 12:01 Freq: NEEDED Status: Active Protocol: Document 05/30/18 09:50 (Rec: 05/30/18 12:23 [email or web address]) Orientation Orientation/Cognition Level of Alertness Alert Orientation Name Age Birthday Month Date Year Day of Week Place Situation Safety Awareness Understands Safety Issues Memory Description No Deficits Noted Gross Range of Motion Upper Extremity ROM Assessment Within Functional Limits Lower Extremity ROM Assessment Within Functional Limits Strength Upper Extremity Strength Assessment Within Functional Limits Lower Extremity Strength Assessment Within Functional Limits Coordination Assessment Gross Coordination Gross Coordination WNL Sensation Assessment Sensation Gross Sensation WNL Muscle Tone Muscle Tone WNL Yes M7 PT-IP Assessment and Plan Start: 05/30/18 12:01 Freq: NEEDED Status: Active Protocol: Document 05/30/18 09:50 (Rec: 05/30/18 12:23 [email or web address]) PT Summary Assessment and Plan Potential Rehabilitation Potential Excellent Status of Condition at Evaluation Stable Summary Impairments Strength Gait Activity Tolerance Assessment Summary Pt is a pleasant 37yo female admitted to for acute hypoxic respiratory failure and bronchitis since 05/25/18. Pt darius tx very well and able to perform all functional tasks without AD and NC. She was able to maintain her O2 sat from 88-95% during the session. She does present SOB during stair climbing, and coughing/wheezing upon exertion but she was able to recover within 10 seconds at rest. Pt also states she has her portable O2 machine at home that she could use if needed. Recommended pt to get pulse oximeter for O2 monitoring at home. At this point, Pt is medically stable to be d/c home , along with her good progress with rehab. Frequency of Treatment Frequency Of Treatment Discharge Recommendations To Nursing Amount of Assist Needed Independent Discharge Recommendations PT Discharge Recommendations Home Equipment Needed for Home Before pulse oximeter Discharge
== END 2018-05-30 13:23 | disposition home or self-care (01) | DRG 720 ==
LOC: ED 18:29 → AC 21:06
PROVIDERS: Internal Medicine; Admitting Provider Nurse Practitioner Gerontology; Emergency Provider Emergency Medicine; Visit Provider Nurse Practitioner Gerontology
DX: A41.89 Other specified sepsis (principal); R65.20 Severe sepsis without septic shock; J12.1 Respiratory syncytial virus pneumonia; J96.01 Acute respiratory failure with hypoxia; J45.901 Unspecified asthma with (acute) exacerbation; R51 Headache; E86.1 Hypovolemia; E66.01 Morbid (severe) obesity due to excess calories; Z68.41 Body mass index [BMI] 40.0-44.9, adult; Z87.891 Personal history of nicotine dependence; E11.9 Type 2 diabetes mellitus without complications; R00.0 Tachycardia, unspecified
CPT/HCPCS: 36415; 71046; 71275; 80048; 80053; 82962; 83036; 83605; 83735; 83880; 84145; 85025; 87040; 87070; 87205; 87633; 90471; 90656; 93005; 93041; 94640; 94667; 94760; 94762; 96365; 96366; 96375; 97161; 97530; 99285; C9113; J0780; J1200; J1650; J1885; J1956; J2405; J2930; J7613; Q2038; Q9967

== ENCOUNTER 2019-11-14 04:24 | Emergency (ER) | payer OTHER, MEDICAID, SELFPAY ==
[2018-05-25 21:42] VITALS: BMI 44.4
[2019-11-14 04:30] VITALS: BP 133/74; PULSE 80; RESP 19; TEMP 36.7; O2SAT 98; BMI 35.5
--- NOTE | 2019-11-14 04:42 | ED_ITS ---
HPI - Headache General Chief Complaint: Headache Stated Complaint: migraine/nausea Time Seen by Provider: 11/14/19 04:30 History of Present Illness HPI Narrative: 39-year-old woman with a history of migraine headaches and mild reactive airway disease with continued tobacco use disorder presents with severe right-sided headache 6 hour duration. Started with an aura associated with light sensitivity getting significantly worse she has been unable to sleep. She took 800 mg of ibuprofen approximately an hour prior to arrival with little effect or influence to her overall pain. She is nauseated but not vomiting. Notes that she has been under a significant amount of stress recently and is in the middle of a difficult break-up. She feels the stress and crying earlier this evening probably were the triggers for this current migraine. Related Data Home Medications Medication Instructions Recorded Confirmed ProAir HFA 2 puff INHALATION QID PRN 05/25/18 05/25/18 Robitussin Cough and Cold CF 20 ml PO Q4H PRN 05/25/18 05/25/18 acetaminophen [Tylenol] 650 mg PO Q4H PRN 05/25/18 05/25/18 hydrocodone-acetaminophen 1 tab PO Q6H PRN 05/25/18 05/25/18 ipratropium-albuterol 1 inh INHALATION Q3-4H PRN 05/25/18 05/25/18 Previous Rx's Medication Instructions Recorded metformin 500 mg PO BID #60 tab 05/30/18 miscellaneous medical supply #1 each 05/30/18 miscellaneous medical supply #1 each 05/30/18 miscellaneous medical supply #1 each 05/30/18 Allergies Allergy/AdvReac Type Severity Reaction Status Date / Time aspirin [ASPIRIN] Allergy Unknown Verified 05/25/18 18:50 Penicillins Allergy Unknown Verified 05/27/18 08:31 hydrocodone [HYDROCODONE] AdvReac Unknown head ache Verified 05/25/18 21:41 Review of Systems Review of Systems Narrative: Pertinent positive and negative findings as per HPI Remainder of review of systems is otherwise unremarkable for Constitutional: Fevers, chills, weakness ENT: No sore throat, neck pain, ear pain CV: Chest pain, palpitations, dyspnea on exertion Respiratory: Cough, wheeze, dyspnea GI: vomiting, diarrhea, change in bowel habits, black or bloody stools : Dysuria, hematuria, flank pain MS: Muscle weakness, numbness, joint swelling or warmth Skin: Rashes, nonhealing lesions Neuro: Syncope, dizziness, tingling Patient History Medical History Asthma (Acute) Migraine (Acute) Social History household members: friend(s) and other Smoking Status: Former smoker alcohol intake: never Smoking Status: Former smoker Substance Use Type: does not use Exam Narrative Exam Narrative: General: Healthy appearing, in mild distress. Able to give a complete and coherent history. Well-nourished well-developed HEENT: Light sensitivity, Moist mucous membranes, normal sclera with reactive pupils, Neck: No cervical adenopathy, supple Respiratory: Lungs are clear to auscultation, minor scattered wheezing, no rales no rhonchi. Full and symmetrical air movement Cardiac: Regular rate and rhythm no murmurs no bruits Abdomen: Soft nontender good bowel tones, no flank pain Skin: Warm and dry, no rashes Neurologic: Grossly neurologically intact with no obvious asymmetries or abnormalities Extremities: No trauma, well perfused Psych: Cooperative, appropriate insight and affect Initial Vital Signs Initial Vital Signs: Vital Signs Temperature 98.0 F 11/14/19 04:30 Pulse Rate 80 11/14/19 04:30 Respiratory Rate 19 11/14/19 04:30 Blood Pressure 133/74 11/14/19 04:30 Pulse Oximetry 98 11/14/19 04:30 Course Orders Ordered: Discontinued Medications Diphenhydramine HCl (Benadryl) 25 mg IV NOW ONE Stop: 11/14/19 04:43 Last Admin: 11/14/19 04:50 Dose: 25 mg Documented by: MMCFARL Sodium Chloride (Normal Saline 0.9%) 1,000 mls @ 1,000 mls/hr IV BOLUS ONE Stop: 11/14/19 05:41 Last Infusion: 11/14/19 05:47 Dose: 1,000 mls/hr Documented by: Admin: 11/14/19 04:51 Dose: 1,000 mls/hr Documented by: MMCFARL Prochlorperazine (Compazine) 10 mg IV NOW ONE Stop: 11/14/19 04:43 Last Admin: 11/14/19 04:51 Dose: 10 mg Documented by: MMCDEON Vital Signs Vital signs: Vital Signs - 8 hr 11/14/19 04:30 Temperature 98.0 F Pulse Rate 80 Respiratory Rate 19 Blood Pressure 133/74 Pulse Oximetry 98 MDM - Headache Medical Records Attestation: I reviewed the patient's medical records. [facility] Narrative Medical decision making narrative: 39-year-old woman presents with what appears to be a straightforward migraine for approximately 6 hours. No other red flags for concerning headache or infection. 6am on re-evaluation, patient is sleeping comfortably and completely headache free. She is safe for home discharge Discharge Plan Departure Patient Disposition: Home Clinical Impression: Migraine Qualifiers: Migraine type: without aura Status migrainosus presence: without status migrainosus Intractability: not intractable Qualified Code(s): G43.009 - Migraine without aura, not intractable, without status migrainosus Instructions: DI for Migraine Activity Restrictions/Additional Instructions: Thank you for coming in today In the emergency room today you received a liter of fluid, IV Compazine and IV Benadryl and your headache was significantly improved. I hope you are able to go home and get some good sleep and wake up headache free. I wish you the best in working through your difficult break-up. Prescriptions: No Action ipratropium-albuterol 0.5 mg-3 mg(2.5 mg base)/3 mL Solution For Nebulization 1 inh Inhalation Q3-4H PRN (Reason: SOB) RF: 0 hydrocodone-acetaminophen 5-325 mg Tablet 1 tab PO Q6H PRN (Reason: Pain (Scale Score 1-3)) RF: 0 ProAir HFA 90 mcg/actuation Hfa Aerosol Inhaler 2 puff INHALATION QID PRN (Reason: Pain (Scale Score 1-3)) RF: 0 Robitussin Cough and Cold CF 2.5-5-50 mg/5 mL Liquid 20 ml PO Q4H PRN (Reason: Pain (Scale Score 1-3)) RF: 0 acetaminophen [Tylenol] 325 mg Capsule 650 mg PO Q4H PRN (Reason: Pain (Scale Score 1-3)) RF: 0 metformin 500 mg tablet 500 mg PO BID Qty: 60 RF: 0 (DME) miscellaneous medical supply misc See Dose Instructions .ROUTE .MEDSUPPLY Qty: 1 RF: 0 (DME) miscellaneous medical supply misc See Dose Instructions .ROUTE .MEDSUPPLY Qty: 1 RF: 0 (DME) miscellaneous medical supply misc See Dose Instructions .ROUTE .MEDSUPPLY Qty: 1 RF: 0
[2019-11-14] MEDS: diphenhydrAMINE 50 MG/ML VIAL 25 MG IV (04:50)
[2019-11-14] MEDS: SODIUM CHLORIDE 0.9% 1,000 ML 1000 ML IV (04:51)
[2019-11-14] MEDS: PROCHLORPERAZINE 10 MG/2 ML VIAL IV (04:51)
[2019-11-14 05:30] VITALS: BP 134/73; PULSE 79; RESP 16; O2SAT 99
== END 2019-11-14 06:05 | disposition home or self-care (01) ==
PROVIDERS: Emergency Provider Emergency Medicine
DX: G43.009 Migraine without aura, not intractable, without status migrainosus (principal); R11.0 Nausea; J45.909 Unspecified asthma, uncomplicated
CPT/HCPCS: 36415; 96361; 96374; 96375; 99284; J0780; J1200

== ENCOUNTER 2019-11-18 22:54 | Emergency (ER) | payer OTHER, MEDICAID, SELFPAY ==
[2018-05-25 21:42] VITALS: BMI 44.4
[2019-11-18 23:36] VITALS: BP 161/76; PULSE 105; RESP 18; TEMP 37.2; O2SAT 96; BMI 33.9
--- NOTE | 2019-11-19 00:11 | ED.SKABFB ---
HPI - Skin/Abscess/Foreign Bdy General Chief complaint: Skin/Abscess/Foreign Body Stated complaint: ABSCESS ON PUBIC LINE MRSA Time Seen by Provider: 11/18/19 23:13 Source: patient Mode of arrival: Ambulatory Limitations: no limitations History of Present Illness HPI narrative: 39F smoker with history of asthma and diabetes and chief complaint of a painful, red, swollen, area on skin of LLQ. She noticed it after shaving a few days ago. She's had no drainage. She denies abdominal pain. She denies systemic findings such as N/V, fever, or chills. She does have a history of MRSA. MD complaint: abscess/boil Onset (ago): day(s) Tetanus up to date: unsure Severity: mild Quality: burning and aching Pain Consistency: constant Exacerbating factors: palpation Context: none Treatments prior to arrival: none Related Data Home Medications Medication Instructions Recorded Confirmed ProAir HFA 2 puff INHALATION QID PRN 05/25/18 05/25/18 Robitussin Cough and Cold CF 20 ml PO Q4H PRN 05/25/18 05/25/18 acetaminophen [Tylenol] 650 mg PO Q4H PRN 05/25/18 05/25/18 hydrocodone-acetaminophen 1 tab PO Q6H PRN 05/25/18 05/25/18 ipratropium-albuterol 1 inh INHALATION Q3-4H PRN 05/25/18 05/25/18 Previous Rx's Medication Instructions Recorded metformin 500 mg PO BID #60 tab 05/30/18 miscellaneous medical supply #1 each 05/30/18 miscellaneous medical supply #1 each 05/30/18 miscellaneous medical supply #1 each 05/30/18 doxycycline hyclate 100 mg PO BID #20 tab 11/19/19 Allergies Allergy/AdvReac Type Severity Reaction Status Date / Time aspirin [ASPIRIN] Allergy Unknown Verified 05/25/18 18:50 Penicillins Allergy Unknown Verified 05/27/18 08:31 hydrocodone [HYDROCODONE] AdvReac Unknown head ache Verified 05/25/18 21:41 Review of Systems Constitutional Constitutional: Denies chills, Denies fatigue, Denies fever(s), Denies frequent falls, Denies lethargy and Denies weakness Eyes Eyes: Denies change in vision, Denies eye discharge, Denies irritation and Denies loss of vision ENT Ears, Nose, Mouth, and Throat: Denies change in voice, Denies dizziness, Denies neck pain, Denies sore throat and Denies throat swelling Cardiovascular Cardiovascular: Denies chest pain, Denies irregular heart rhythm, Denies lightheadedness, Denies palpitations, Denies dyspnea, Denies dyspnea on exertion and Denies orthopnea Respiratory Respiratory: Denies cough, Denies dyspnea, Denies dyspnea on exertion and Denies wheezing Gastrointestinal Gastrointestinal: Denies abdominal pain, Denies change in bowel habits, Denies diarrhea, Denies nausea and Denies vomiting Musculoskeletal Musculoskeletal: Denies neck pain and Denies numbness Integumentary/Breasts Skin/Breast: Denies pruritus, Reports erythema, Denies rash, Reports skin swelling and Denies wounds Neurologic Neurologic: Denies behavioral changes, Denies confusion, Denies dizziness, Denies frequent falls, Denies loss of vision, Denies numbness and Denies weakness Psychiatric Psychiatric: Denies anxiety, Denies behavioral changes, Denies confusion, Denies depression, Denies homicidal ideation and Denies suicidal ideation Endocrine Endocrine: Denies fatigue, Denies flushing and Denies palpitations Hematologic/Lymphatic Hematologic/Lymphatic: Denies easy bruising Allergic/Immunologic Allergic/Immunologic: Denies urticaria, Denies throat swelling and Denies wheezing Patient History Medical History Asthma (Acute) Migraine (Acute) Social History household members: friend(s) and other Smoking Status: Current every day smoker alcohol intake: never Smoking Status: Current every day smoker alcohol intake frequency: holidays/special occasions only Substance Use Type: does not use Exam Narrative Exam Narrative: GEN: AOx3 and in mild distress EYES: Pupils are equal, round, and reactive to light and accommodation. Extraoccular muscles are intact bilaterally. There is no subconjunctival hemorrhage or exudate. CHEST: Lungs are clear to auscultation bilaterally and free of wheezes, rales, or rhonchi. Heart rate is regular rhythm, there are no murmurs, clicks, rubs, or gallops. There is no chest wall tenderness. ABD: Abdomen is soft and nontender. There is no guarding or rebound. Bowel sounds are normal in all 4 quadrants. There is no mass or organomegaly. EXT: Full painless ROM of all extremities with no loss of sensation or strength. SKIN: Examined with patient's permission and female nursing brazing machine operator at the bedside. 2 cm x 2 cm region of erythema in the patient's groin is tender to palpate with minimal induration and no fluctuance or drainage. OTherwise Warm, pink, and dry. No erythema or rash Initial Vital Signs Initial Vital Signs: Vital Signs Temperature 99.0 F 11/18/19 23:36 Pulse Rate 105 H 11/18/19 23:36 Respiratory Rate 18 11/18/19 23:36 Blood Pressure 161/76 H 11/18/19 23:36 Pulse Oximetry 96 11/18/19 23:36 Course Orders Ordered: Discontinued Medications Doxycycline Hyclate (Vibramycin) 100 mg PO NOW ONE Stop: 11/19/19 01:00 Last Admin: 11/19/19 01:08 Dose: 100 mg Documented by: ERASMO Vital Signs Vital signs: Vital Signs - 8 hr 11/18/19 23:36 11/19/19 01:11 Temperature 99.0 F Pulse Rate 105 H 86 Respiratory Rate 18 16 Blood Pressure 161/76 H 158/74 H Pulse Oximetry 96 97 Discharge Plan Departure Patient Disposition: Home Clinical Impression: Cellulitis Qualifiers: Site of cellulitis: trunk Site of cellulitis of trunk: abdominal wall Qualified Code(s): L03.311 - Cellulitis of abdominal wall Discharge Date/Time: 11/19/19 01:12 Instructions: DI for Cellulitis -- Adult, DI for Skin Abscess Activity Restrictions/Additional Instructions: *You have been diagnosed with [cellulitis without obvious abscess] *What to do: *Take medications as directed *Follow up with your primary care provider in 2-3 days, call for an appointment. Let them know you were seen in the Emergency Department and that we ask that you be seen in follow up *Return to ER if you should have any new, worsening or concerning symptoms Prescriptions: New doxycycline hyclate 100 mg tablet 100 mg PO BID Qty: 20 RF: 0 No Action ipratropium-albuterol 0.5 mg-3 mg(2.5 mg base)/3 mL Solution For Nebulization 1 inh Inhalation Q3-4H PRN (Reason: SOB) RF: 0 hydrocodone-acetaminophen 5-325 mg Tablet 1 tab PO Q6H PRN (Reason: Pain (Scale Score 1-3)) RF: 0 ProAir HFA 90 mcg/actuation Hfa Aerosol Inhaler 2 puff INHALATION QID PRN (Reason: Pain (Scale Score 1-3)) RF: 0 Robitussin Cough and Cold CF 2.5-5-50 mg/5 mL Liquid 20 ml PO Q4H PRN (Reason: Pain (Scale Score 1-3)) RF: 0 acetaminophen [Tylenol] 325 mg Capsule 650 mg PO Q4H PRN (Reason: Pain (Scale Score 1-3)) RF: 0 metformin 500 mg tablet 500 mg PO BID Qty: 60 RF: 0 (DME) miscellaneous medical supply misc See Dose Instructions .ROUTE .MEDSUPPLY Qty: 1 RF: 0 (DME) miscellaneous medical supply misc See Dose Instructions .ROUTE .MEDSUPPLY Qty: 1 RF: 0 (DME) miscellaneous medical supply misc See Dose Instructions .ROUTE .MEDSUPPLY Qty: 1 RF: 0
[2019-11-19] MEDS: DOXYCYCLINE HYCLATE 100 MG TABLET PO (01:08)
[2019-11-19 01:11] VITALS: BP 158/74; PULSE 86; RESP 16; O2SAT 97
== END 2019-11-19 01:12 | disposition home or self-care (01) ==
PROVIDERS: Emergency Provider Emergency Medicine
DX: L03.311 Cellulitis of abdominal wall (principal)
CPT/HCPCS: 99283

== ENCOUNTER 2019-11-26 14:25 | Emergency (ER) | payer OTHER, MEDICAID, SELFPAY ==
[2018-05-25 21:42] VITALS: BMI 44.4
[2019-11-26] VITALS (7 sets, daily range): BP systolic 119–140; BP diastolic 65–74; PULSE 72–92; RESP 16–24; TEMP 36.7; O2SAT 96–99; BMI 33.9
--- NOTE | 2019-11-26 14:35 | DI.RAD.S_ITS ---
PROCEDURE: XR CHEST 1V INDICATIONS: chest pain TECHNIQUE: One view of the chest was acquired. COMPARISON: [facility], CR, XR CHEST 2V, 05/27/2018, 7:09. FINDINGS: Surgical changes and devices: None. Lungs and pleura: Mild pulmonary vascular congestion is seen. No pleural effusions or pneumothorax. Mediastinum: Mediastinal contours appear normal. Heart size is enlarged. Bones and chest wall: No suspicious bony lesions. Overlying soft tissues appear unremarkable. IMPRESSION: Cardiomegaly and very mild pulmonary vascular congestion. No focal infiltrate, pleural effusion or pneumothorax. Dictated by: Brandon Crane M.D. on 11/26/2019 at 14:04 Approved by: Brandon Crane M.D. on 11/26/2019 at 14:10
--- NOTE | 2019-11-26 14:51 | ED_ITS ---
HPI - SOB/Dyspnea General Chief Complaint: Chest Pain Stated Complaint: allergy induced asthma/tightness in chest Time Seen by Provider: 11/26/19 14:32 Source: patient Mode of arrival: Ambulatory Limitations: no limitations History of Present Illness HPI Narrative: Patient here for asthma exacerbation. She states this feels exactly like past asthma exacerbations. She has nebulizer at home but able to get to it when she was at the store today. Her inhaler only has 1 treatment left. Denies any recent illness cough cold congestion fever chills or sore throat. Patient states chest tightness is the same discomfort with asthma exacerbation. No recent exertional chest pain or dyspnea or otherwise. She states she has seasonal allergies and right now is another flare up. This morning she woke with allergy symptoms and took inhaler and felt better. However this afternoon she went to the store and being outside had more allergens, possible [place], 1 of her allergens, she sees a floating in the air. Feeling better right now not on control pills. No hormone replacement. Denies any previous history of DVT or PE. Vital signs reviewed. Not tachycardic not tachypneic. 98% room air. No wheezing. Speaking full sentences Complaint: asthma attack Related Data Home Medications Medication Instructions Recorded Confirmed ProAir HFA 2 puff INHALATION QID PRN 05/25/18 05/25/18 Robitussin Cough and Cold CF 20 ml PO Q4H PRN 05/25/18 05/25/18 acetaminophen [Tylenol] 650 mg PO Q4H PRN 05/25/18 05/25/18 hydrocodone-acetaminophen 1 tab PO Q6H PRN 05/25/18 05/25/18 ipratropium-albuterol 1 inh INHALATION Q3-4H PRN 05/25/18 05/25/18 Previous Rx's Medication Instructions Recorded metformin 500 mg PO BID #60 tab 05/30/18 miscellaneous medical supply #1 each 05/30/18 miscellaneous medical supply #1 each 05/30/18 miscellaneous medical supply #1 each 05/30/18 doxycycline hyclate 100 mg PO BID #20 tab 11/19/19 methylprednisolone [Medrol (Nael)] See Rx Instructions .ROUTE 11/26/19 .COMPLEX #21 each Allergies Allergy/AdvReac Type Severity Reaction Status Date / Time aspirin [ASPIRIN] Allergy Unknown Verified 11/26/19 14:32 Penicillins Allergy Unknown Verified 11/26/19 14:32 hydrocodone [HYDROCODONE] AdvReac Unknown head ache Verified 11/26/19 14:32 Review of Systems Review of Systems Narrative: GENERAL: Denies chills, fatigue, malaise, fever, sweats. HEENT: Denies sinus pain, ear pain, sore throat, difficulty swallowing, dizziness. RESPIRATORY: Denies cough, wheezing, hemoptysis, sputum. Complains of dyspnea CARDIOVASCULAR: Denies palpitations, orthopnea, edema, complains chest tightness GASTROINTESTINAL: Denies nausea, vomiting, abdominal pain, diarrhea, constipation, melena. : Denies dysuria, frequency, incontinence, hematuria, urinary retention. MUSCULOSKELETAL: denies weakness, joint pain, or bony pain SKIN: Denies rash, skin lesions, or other NEUROLOGIC: Denies weakness, headache, numbness, change in speech, confusion, seizures, incoordination. PSYCHIATRIC: No concerning psychosocial issues. ROS Unobtainable: All systems reviewed & are unremarkable except as noted in HPI and below Patient History Medical History Asthma (Acute) Migraine (Acute) Social History household members: friend(s) and other Smoking Status: Current every day smoker alcohol intake: never Smoking Status: Current every day smoker alcohol intake frequency: holidays/special occasions only Substance Use Type: does not use Exam Narrative Exam Narrative: GENERAL: patient appears stated age. Well-nourished, well- developed patient, in no distress, not toxic HEAD: Atraumatic. Normocephalic. EYES: Pupils equal round and reactive. Extraocular motions intact. No scleral icterus. No injection or drainage. ENT: Nose without bleeding, purulent drainage. Throat without erythema, tonsillar hypertrophy or exudate. Airway patent. NECK: Trachea midline. Non tender CARDIOVASCULAR: Regular rate and rhythm without murmurs, gallops, or rubs. RESPIRATORY: Clear to auscultation. Breath sounds equal bilaterally. No wheezes, rales, or rhonchi. Speaking full sentences GASTROINTESTINAL: Abdomen soft, non-tender, nondistended. EXTREMITIES: No edema or joint tenderness. BACK: Nontender without deformity or crepitance. No flank tenderness. NEURO: AOx3. SKIN: No rash or erythema of visible areas PSYCH: Not anxious, is cooperative Initial Vital Signs Initial Vital Signs: Vital Signs Temperature 98.1 F 11/26/19 14:25 Pulse Rate 90 11/26/19 14:25 Respiratory Rate 19 11/26/19 14:25 Blood Pressure 140/74 11/26/19 14:25 Pulse Oximetry 98 11/26/19 14:25 Course Orders Ordered: ED Orders 11/26/19 14:35 XR chest 1V Stat Complete Blood Count AUTO DIFF Stat Comprehensive Metabolic Panel Stat Lipase Stat Partial Thromboplastin Time Stat Prothrombin Time INR Stat Troponin & CK Cardiac Panel Stat EKG-12 Lead Stat Discontinued Medications Albuterol (Ventolin Hfa (Vent/Covid R/O)) 2 puff INH NOW ONE Stop: 11/26/19 14:45 Last Admin: 11/26/19 14:53 Dose: 2 puff Documented by: VIANEY Prednisone (Deltasone) 60 mg PO NOW ONE Stop: 11/26/19 14:50 Last Admin: 11/26/19 14:54 Dose: 60 mg Documented by: CAROLE Reevaluation(s) Reevaluation #1: Patient feels much better. Up and walking in the hallway 98% room air. No tachypnea. Patient states feels much better only slightly short of breath Time: 15:40 Vital Signs Vital signs: Vital Signs - 8 hr 11/26/19 14:25 11/26/19 14:33 11/26/19 14:58 Temperature 98.1 F Pulse Rate 90 92 H 72 Respiratory Rate 19 18 18 Blood Pressure 140/74 140/74 Pulse Oximetry 98 98 96 11/26/19 15:00 11/26/19 15:03 11/26/19 15:31 Temperature Pulse Rate 83 76 83 Respiratory Rate 16 24 Blood Pressure 119/65 Pulse Oximetry 98 99 98 11/26/19 15:33 Temperature Pulse Rate 82 Respiratory Rate 17 Blood Pressure 129/66 Pulse Oximetry 98 MDM - SOB/Dyspnea Medical Records Attestation: I reviewed the patient's medical records. Imaging Data Chest x-ray: Radiologist's Impression: [address] [id number] XRay Report Signed Patient: Kendal Dozier [facility]#: [id number] : 1980Acct:[id number] Age/Sex: 39 / FDate of Service: 11/26/19 Loc: ED Accession Number: [id number] Procedure: XR chest 1V Ordering Provider: Curtis Walls MD PROCEDURE: XR CHEST 1V INDICATIONS: chest pain TECHNIQUE: One view of the chest was acquired. COMPARISON: [facility], CR, XR CHEST 2V, 05/27/2018, 7:09. FINDINGS: Surgical changes and devices: None. Lungs and pleura: Mild pulmonary vascular congestion is seen. No pleural effusions or pneumothorax. Mediastinum: Mediastinal contours appear normal. Heart size is enlarged. Bones and chest wall: No suspicious bony lesions. Overlying soft tissues appear unremarkable. IMPRESSION: Cardiomegaly and very mild pulmonary vascular congestion. No focal infiltrate, pleural effusion or pneumothorax. Dictated by: Brandon Crane M.D. on 11/26/2019 at 14:04 Approved by: Brandon Crane M.D. on 11/26/2019 at 14:10 ECG Data Attestation: I personally reviewed and interpreted this ECG as follows: Interpretation: EKG normal sinus rhythm, normal EKG. Ventricular rate 81. MDM Narrative Medical decision making narrative: No laboratory indication at this time. EKG was completed. Vital signs reviewed patient at this time not toxic not dyspneic. No hypoxia no tachypnea and no tachycardia no hypotension or hypertension. This is typical of asthma exacerbation for patient. Denies does not want test Discharge Plan Departure Patient Disposition: Home Clinical Impression: Asthma exacerbation Qualifiers: Asthma severity: mild Asthma persistence: intermittent Qualified Code(s): J45.21 - Mild intermittent asthma with (acute) exacerbation Instructions: DI for Asthma -- Adult Activity Restrictions/Additional Instructions: Continue steroid pack tomorrow. Continue home asthma inhaler and nebulizer. See family doctor December 08 as scheduled. Return if worse or if any questions or concerns. May use [id number] generic brand Tuyet for seasonal allergies. Medrol Dosepak prescription has been sent to [facility] Prescriptions: New methylprednisolone [Medrol (Nael)] 4 mg tablets,dose pack See Rx Instructions .ROUTE .COMPLEX Qty: 21 RF: 0 No Action ipratropium-albuterol 0.5 mg-3 mg(2.5 mg base)/3 mL Solution For Nebulization 1 inh Inhalation Q3-4H PRN (Reason: SOB) RF: 0 hydrocodone-acetaminophen 5-325 mg Tablet 1 tab PO Q6H PRN (Reason: Pain (Scale Score 1-3)) RF: 0 ProAir HFA 90 mcg/actuation Hfa Aerosol Inhaler 2 puff INHALATION QID PRN (Reason: Pain (Scale Score 1-3)) RF: 0 Robitussin Cough and Cold CF 2.5-5-50 mg/5 mL Liquid 20 ml PO Q4H PRN (Reason: Pain (Scale Score 1-3)) RF: 0 acetaminophen [Tylenol] 325 mg Capsule 650 mg PO Q4H PRN (Reason: Pain (Scale Score 1-3)) RF: 0 metformin 500 mg tablet 500 mg PO BID Qty: 60 RF: 0 (DME) miscellaneous medical supply misc See Dose Instructions .ROUTE .MEDSUPPLY Qty: 1 RF: 0 (DME) miscellaneous medical supply misc See Dose Instructions .ROUTE .MEDSUPPLY Qty: 1 RF: 0 (DME) miscellaneous medical supply misc See Dose Instructions .ROUTE .MEDSUPPLY Qty: 1 RF: 0 doxycycline hyclate 100 mg tablet 100 mg PO BID Qty: 20 RF: 0 Referrals: Nisha Juarez ARNP [Primary Care Provider] -
[2019-11-26] MEDS: ALBUTEROL HFA 200 PUFF/18 GM INH (COVID POS/VENT PTS) INH (14:53)
[2019-11-26] MEDS: predniSONE 20 MG TABLET 60 MG PO (14:54)
== END 2019-11-26 15:41 | disposition home or self-care (01) ==
PROVIDERS: Emergency Provider Emergency Medicine; PCP Registered Nurse
DX: J45.21 Mild intermittent asthma with (acute) exacerbation (principal); R07.9 Chest pain, unspecified
CPT/HCPCS: 71045; 93005; 94150; 94640; 99283; 99284; A9270

== ENCOUNTER → 2019-12-09 11:27 | Outpatient (CLI) | payer OTHER, MEDICAID, SELFPAY ==
[2018-05-25 21:42] VITALS: BMI 44.4
--- NOTE | 2019-12-09 11:28 | DI.RAD.S_ITS ---
PROCEDURE: XR ELBOW LT MIN 3V INDICATIONS: L elbow pain TECHNIQUE: 3 views of the elbow were acquired. COMPARISON: None. FINDINGS: Bones: No fracture. Anatomic alignment. Mild degenerative spurring. Soft tissues: No elbow joint effusion. No suspicious soft tissue calcifications. IMPRESSION: Negative examination as above. If the patient's pain or other symptoms persist, consider further evaluation with MRI Dictated by: Jesus Jack M.D. on 12/09/2019 at 15:50 Approved by: Jesus Jack M.D. on 12/09/2019 at 15:51
== END ==
PROVIDERS: PCP Registered Nurse; Referring Provider Registered Nurse; Visit Provider Registered Nurse
DX: M25.522 Pain in left elbow (principal)
CPT/HCPCS: 73080

== ENCOUNTER 2019-12-27 19:57 | Emergency (ER) | payer OTHER, MEDICAID, SELFPAY ==
[2018-05-25 21:42] VITALS: BMI 44.4
[2019-12-27 20:30] VITALS: BP 135/85; PULSE 100; RESP 16; TEMP 36.6; O2SAT 97; BMI 35.5
[2019-12-27] MEDS: IBUPROFEN 400 MG TABLET PO (20:44)
[2019-12-27] MEDS: ACETAMINOPHEN 325 MG TABLET 650 MG PO (20:44)
--- NOTE | 2019-12-27 20:48 | DI.RAD.S_ITS ---
PROCEDURE: XR WRIST LT MIN 3V INDICATIONS: fall on outstreched arm TECHNIQUE: For views of the wrist were acquired. COMPARISON: None. FINDINGS: Bones: No fractures or dislocations. No suspicious bony lesions. Scaphoid view: Scaphoid morphology on the AP view suggests a fracture though this is not confirmed on the dedicated scaphoid view. Soft tissues: No suspicious soft tissue calcifications. IMPRESSION: No definite fractures, however if there is focal snuff box tenderness, immobilization and reimaging in seven days is recommended. Dictated by: Sara Stewart M.D. on 12/27/2019 at 22:04 Approved by: Sara Stewart M.D. on 12/27/2019 at 22:06
--- NOTE | 2019-12-27 21:23 | ED.UPPEXIN ---
HPI - Extremity Injury (Upper) General Chief Complaint: Extremity Injury, Upper Stated Complaint: lt wrist injury Time Seen by Provider: 12/27/19 20:45 Source: patient Mode of arrival: Ambulatory Limitations: no limitations History of Present Illness HPI narrative: Migraines and asthma who presents after mechanical fall at home landing on an outstretched left wrist with acute pain. She stumbled over something she was walking into her dark bedroom and believe she hit the outer aspect of her left wrist on the edge of her bed. Any time she moves her small finger it radiates up into the hand and the forearm. She is neurovascularly intact. She is left-handed Related Data Home Medications Medication Instructions Recorded Confirmed acetaminophen [Tylenol] 650 mg PO Q4H PRN 05/25/18 12/09/19 ipratropium-albuterol 1 inh INHALATION Q3-4H PRN 05/25/18 12/09/19 Previous Rx's Medication Instructions Recorded albuterol sulfate 90 mcg/actuation 2 puff INHALATION QID PRN #8.5 gram 12/09/19 aerosol inhaler trazodone 50 mg tablet 25 mg PO BEDTIME PRN 30 Days #30 12/09/19 tab Allergies Allergy/AdvReac Type Severity Reaction Status Date / Time aspirin [ASPIRIN] Allergy Unknown Verified 12/27/19 20:30 Penicillins Allergy Unknown Verified 12/27/19 20:30 hydrocodone [HYDROCODONE] AdvReac Unknown head ache Verified 12/27/19 20:30 Review of Systems Review of Systems Narrative: Remainder of review of systems including constitutional, ENT, cardiovascular, respiratory, GI, , musculoskeletal, skin, neurologic and psychiatric systems reviewed and are unremarkable except as noted in HPI. Patient History Medical History Anxiety (Chronic) Asthma (Acute) Chicken pox (Resolved ~1984) Fractures (Resolved) Headache (Chronic) Migraine (Chronic) Wears glasses (Chronic) Surgical History Anesthesia (Resolved) History of appendectomy (Resolved ~2002) History of oral surgery (Resolved) Family History Father History of heart disease Hypertension Wears hearing aid Brother Hyperlipidemia Social History household members: friend(s) and other Smoking Status: Current every day smoker alcohol intake: never Smoking Status: Current every day smoker alcohol intake frequency: holidays/special occasions only Substance Use Type: does not use Exam Narrative Exam Narrative: General: Alert appropriate in no acute distress Respiratory: Able to speak in full sentences, no obvious respiratory distress Skin: No obvious rashes, warm and dry Neurologic: Grossly intact no obvious asymmetries or abnormalities Psych, appropriate insight and affect, cooperative Extremity: Left wrist is tender over the ulnar styloid without abrasion contusion or gross deformity. Initial Vital Signs Initial Vital Signs: Vital Signs Temperature 97.8 F 12/27/19 20:30 Pulse Rate 100 H 12/27/19 20:30 Respiratory Rate 16 12/27/19 20:30 Blood Pressure 135/85 12/27/19 20:30 Pulse Oximetry 97 12/27/19 20:30 Procedures Orthopedic Splinting/Casting Left wrist splint: Side: left Upper Extremity Injury Location: wrist Upper Extremity Immobilizer: volar splint Post splinting neuro exam: intact Post splinting vascular exam: intact Placed by: Nursing Course Orders Ordered: ED Orders 12/27/19 20:48 XR wrist LT min 3V Stat Discontinued Medications Acetaminophen (Tylenol) 650 mg PO NOW ONE Stop: 12/27/19 20:38 Last Admin: 12/27/19 20:44 Dose: 650 mg Documented by: MMCFARL Ibuprofen (Advil) 400 mg PO NOW ONE Stop: 12/27/19 20:39 Last Admin: 12/27/19 20:44 Dose: 400 mg Documented by: MMCFARL Vital Signs Vital signs: Vital Signs - 8 hr 12/27/19 20:30 Temperature 97.8 F Pulse Rate 100 H Respiratory Rate 16 Blood Pressure 135/85 Pulse Oximetry 97 MDM - Extremity Injury (Upper) Medical Records Attestation: I reviewed the patient's medical records. Imaging Data X-ray left wrist: Attestation: I personally reviewed and interpreted this imaging study as follows: My Impression: No fracture MDM Narrative Medical decision making narrative: No immediate fracture appreciated. Patient is placed in a ulnar splint for comfort. Will ask her follow-up with her primary care physician Discharge Plan Departure Patient Disposition: Home Clinical Impression: Contusion of left wrist Qualifiers: Encounter type: initial encounter Qualified Code(s): S60.212A - Contusion of left wrist, initial encounter Instructions: DI for Wrist Sprain Activity Restrictions/Additional Instructions: Thank you for coming in today Your x-ray does not show any broken bones. We have given you a splint to help with pain control and mobilization. Using 400 mg of ibuprofen (2 [id number] pills) and 1 Tylenol every 6 hours can be very helpful in controlling pain. Please keep your follow-up appointment with your primary care doctor on Monday I hope you feel better Prescriptions: No Action trazodone 50 mg tablet 25 mg PO BEDTIME PRN (Reason: insomnia) 30 Days Qty: 30 RF: 2 ProAir HFA 90 mcg/actuation HFA aerosol inhaler 2 puff INHALATION QID PRN (Reason: Pain (Scale Score 1-3)) Qty: 8.5 RF: 3 ipratropium-albuterol 0.5 mg-3 mg(2.5 mg base)/3 mL Solution For Nebulization 1 inh Inhalation Q3-4H PRN (Reason: SOB) RF: 0 acetaminophen [Tylenol] 325 mg Capsule 650 mg PO Q4H PRN (Reason: Pain (Scale Score 1-3)) RF: 0 Referrals: Nisha Juarez ARNP [Primary Care Provider] -
[2019-12-27 23:10] VITALS: BP 105/75; PULSE 8
== END 2019-12-27 23:10 | disposition home or self-care (01) ==
PROVIDERS: Emergency Provider Emergency Medicine; PCP Registered Nurse
DX: S60.212A Contusion of left wrist, initial encounter (principal); W19.XXXA Unspecified fall, initial encounter
CPT/HCPCS: 73110; 99283

== ENCOUNTER 2020-02-02 18:30 | Emergency (ER) | payer OTHER, MEDICAID, SELFPAY ==
[2018-05-25 21:42] VITALS: BMI 44.4
[2020-02-02 18:37] VITALS: BP 150/75; PULSE 75; RESP 20; TEMP 36.9; O2SAT 98
--- NOTE | 2020-02-02 18:59 | DI.RAD.S_ITS ---
PROCEDURE: XR CHEST 2V INDICATIONS: sob, productive cough, hx pneumonia and asthma TECHNIQUE: 2 views of the chest were acquired. COMPARISON: [facility], CR, XR CHEST 1V, 11/26/2019, 14:36. FINDINGS: Surgical changes and devices: None. Lungs and pleura: Lungs are clear. No pleural effusions or pneumothorax. Mediastinum: Mediastinal contours are normal. Heart size is normal. Bones and chest wall: No suspicious bony abnormalities. Soft tissues appear unremarkable. IMPRESSION: No evidence acute pulmonary process. Dictated by: Lalit Carroll M.D. on 02/02/2020 at 19:27 Approved by: Lalit Carroll M.D. on 02/02/2020 at 19:27
--- NOTE | 2020-02-02 19:07 | ED.URI ---
HPI - URI/Sore Throat <Francesca Dotson, [employer] - Last Filed: 02/02/20 21:01> General Chief Complaint: Upper Respiratory Symptoms Stated Complaint: Cough, Left Arm Aches Time Seen by Provider: 02/02/20 18:38 Source: patient Mode of arrival: Ambulatory Limitations: no limitations History of Present Illness HPI Narrative: The patient is a 39-year-old female with history of asthma pneumonia who presents with a chief complaint of a productive cough. She states that she quit smoking 4 days ago. She is a long-time asthmatic who has been on steroids multiple times states she has albuterol as needed and able, does have a nebulizer machine at home. She states that her own nebulizer is broken, so she is getting a new 1 tomorrow. She denies any fevers but complains of muscle aches and chills. No nausea vomiting or diarrhea. She states she feels very wheezy and is concerned about developing pneumonia. She denies any known exposure to coronavirus, states that she checks her temperature every day at work and that comes back normal. However she has never been tested for coronavirus. Related Data Home Medications Medication Instructions Recorded Confirmed acetaminophen [Tylenol] 650 mg PO Q4H PRN 05/25/18 01/01/20 ipratropium-albuterol 1 inh INHALATION Q3-4H PRN 05/25/18 01/01/20 diphenhydramine HCl 25 mg capsule 25 mg PO .PRN cap 01/01/20 01/01/20 Previous Rx's Medication Instructions Recorded trazodone 50 mg tablet 25 mg PO BEDTIME PRN 30 Days #30 12/09/19 tab albuterol sulfate 90 mcg/actuation 2 puff INHALATION QID PRN #8.5 gram 01/06/20 aerosol inhaler benzonatate [Tessalon Perles] 100 mg PO BID-TID PRN #20 cap 02/02/20 codeine-guaifenesin [Guaifenesin 10 ml PO Q4-6H PRN #100 ml 02/02/20 AC] prednisone 40 mg PO DAILY #10 tab 02/02/20 Allergies Allergy/AdvReac Type Severity Reaction Status Date / Time aspirin [ASPIRIN] Allergy Unknown Verified 01/01/20 09:41 Penicillins Allergy Unknown Verified 01/01/20 09:41 hydrocodone [HYDROCODONE] AdvReac Unknown head ache Verified 01/01/20 09:41 Review of Systems <PATRICIO Claros - Last Filed: 02/02/20 21:01> Review of Systems Narrative: GENERAL: See HPI HEENT: Denies sinus pain, ear pain, sore throat, difficulty swallowing, dizziness. RESPIRATORY: See HPI CARDIOVASCULAR: Denies chest pain, palpitations, orthopnea, edema, GASTROINTESTINAL: Denies nausea, vomiting, abdominal pain, diarrhea, constipation, melena. : Denies dysuria, frequency, incontinence, hematuria, urinary retention. MUSCULOSKELETAL: denies weakness, joint pain, or bony pain SKIN: Denies rash, skin lesions, or other NEUROLOGIC: Denies weakness, headache, numbness, change in speech, confusion, seizures, incoordination. PSYCHIATRIC: No concerning psychosocial issues. 12 point review of systems is negative except for those stated above Patient History <PATRICIO Claros - Last Filed: 02/02/20 21:01> Medical History Anxiety (Chronic) Asthma (Acute) Chicken pox (Resolved ~1984) Fractures (Resolved) Headache (Chronic) Migraine (Chronic) Wears glasses (Chronic) Surgical History Anesthesia (Resolved) History of appendectomy (Resolved ~2002) History of oral surgery (Resolved) Family History Father History of heart disease Hypertension Wears hearing aid Brother Hyperlipidemia Social History household members: friend(s) and other Smoking Status: Current every day smoker alcohol intake: never Smoking Status: Current every day smoker alcohol intake frequency: holidays/special occasions only Substance Use Type: does not use Exam <PATRICIO Claros - Last Filed: 02/02/20 21:01> Narrative Exam Narrative: GENERAL: This is a well-nourished, well-developed patient, in no acute distress HEAD: Atraumatic. Normocephalic. No temporal or scalp tenderness. EYES: Pupils equal round and reactive. Extraocular motions intact. No scleral icterus. No injection or drainage. ENT: Nose without bleeding, purulent drainage or septal hematoma. Wearing a mask. Airway patent. NECK: Trachea midline. No JVD or lymphadenopathy. Supple, nontender, no meningeal signs. CARDIOVASCULAR: Regular rate and rhythm RESPIRATORY: Diffuse expiratory wheezes throughout to auscultation. Occasional dry sounding cough. Speaking full sentences. No increased respiratory effort. No accessory muscle use. GASTROINTESTINAL: Abdomen soft, non-tender, nondistended. No hepato-splenomegaly, or palpable masses. No guarding. Active bowel sounds all 4 quadrants. NEURO: AOx3. SKIN: No rash or erythema on visible skin Initial Vital Signs Initial Vital Signs: Vital Signs Temperature 98.5 F 02/02/20 18:37 Pulse Rate 75 02/02/20 18:37 Respiratory Rate 20 02/02/20 18:37 Blood Pressure 150/75 H 02/02/20 18:37 Pulse Oximetry 98 02/02/20 18:37 <Harley Mahmood DO - Last Filed: 02/03/20 00:33> Initial Vital Signs Initial Vital Signs: Vital Signs Temperature 98.5 F 02/02/20 18:37 Pulse Rate 75 02/02/20 18:37 Respiratory Rate 20 02/02/20 18:37 Blood Pressure 150/75 H 02/02/20 18:37 Pulse Oximetry 98 02/02/20 18:37 Scores <PATRICIO Claros - Last Filed: 02/02/20 21:01> GCS [place] coma scale eye opening: Spontaneous Jack coma scale verbal response: Orientated [place] coma scale motor response: Obey commands Jack coma scale total score: 15 Course <PATRICIO Claros - Last Filed: 02/02/20 21:01> Orders Ordered: ED Orders 02/02/20 18:55 COVID19 -ED/INPAT/OR/L&D Stat 02/02/20 18:59 XR chest 2V Stat Discontinued Medications Albuterol/Ipratropium (Duoneb) 3 ml INH NOW ONE Stop: 02/02/20 18:59 Last Admin: 02/02/20 19:25 Dose: 3 ml Documented by: [email or web address] Benzonatate (Tessalon Perles) 100 mg PO NOW ONE Stop: 02/02/20 20:27 Last Admin: 02/02/20 20:55 Dose: 100 mg Documented by: JASON Prednisone (Deltasone) 60 mg PO NOW ONE Stop: 02/02/20 19:58 Last Admin: 02/02/20 20:14 Dose: 60 mg Documented by: JASON Vital Signs Vital signs: Vital Signs - 8 hr 02/02/20 18:37 02/02/20 19:25 02/02/20 21:04 Temperature 98.5 F Pulse Rate 75 84 80 Respiratory Rate 20 18 16 Blood Pressure 150/75 H 136/76 Pulse Oximetry 98 96 99 <Harley Mahmood DO - Last Filed: 02/03/20 00:33> Orders Ordered: ED Orders 02/02/20 18:55 COVID19 -ED/INPAT/OR/L&D Stat 02/02/20 18:59 XR chest 2V Stat Discontinued Medications Albuterol/Ipratropium (Duoneb) 3 ml INH NOW ONE Stop: 02/02/20 18:59 Last Admin: 02/02/20 19:25 Dose: 3 ml Documented by: [email or web address] Benzonatate (Tessalon Perles) 100 mg PO NOW ONE Stop: 02/02/20 20:27 Last Admin: 02/02/20 20:55 Dose: 100 mg Documented by: JASON Prednisone (Deltasone) 60 mg PO NOW ONE Stop: 02/02/20 19:58 Last Admin: 02/02/20 20:14 Dose: 60 mg Documented by: JASON Vital Signs Vital signs: Vital Signs - 8 hr 02/02/20 18:37 02/02/20 19:25 02/02/20 21:04 Temperature 98.5 F Pulse Rate 75 84 80 Respiratory Rate 20 18 16 Blood Pressure 150/75 H 136/76 Pulse Oximetry 98 96 99 MDM - URI/Sore Throat <PATRICIO Claros - Last Filed: 02/02/20 21:01> Lab Data Labs: Lab Results 02/02/20 Range/Units 18:55 COVID-19 PCR Negative (Negative) Imaging Data Chest x-ray: Radiologist's Impression: [facility] [address] [place] [id number] XRay Report Signed Patient: Kendal Dozier [facility]#: [id number] : 1980Acct:[id number] Age/Sex: 39 / FDate of Service: 02/02/20 Loc: ED Accession Number: [id number] Procedure: XR chest 2V Ordering Provider: Francesca Dotson PROCEDURE: XR CHEST 2V INDICATIONS: sob, productive cough, hx pneumonia and asthma TECHNIQUE: 2 views of the chest were acquired. COMPARISON: [facility], CR, XR CHEST 1V, 11/26/2019, 14:36. FINDINGS: Surgical changes and devices: None. Lungs and pleura: Lungs are clear. No pleural effusions or pneumothorax. Mediastinum: Mediastinal contours are normal. Heart size is normal. Bones and chest wall: No suspicious bony abnormalities. Soft tissues appear unremarkable. IMPRESSION: No evidence acute pulmonary process. Dictated by: Lalit Carroll M.D. on 02/02/2020 at 19:27 Approved by: Lalit Carroll M.D. on 02/02/2020 at 19:27 [facility] Narrative Medical decision making narrative: The patient is a 39-year-old female who presents with a chief complaint of shortness of breath, productive cough, concern for pneumonia given her history. She appears well and nontoxic, is in no acute respiratory distress and benefits from a nebulizer. She states she is getting a new nebulizer tomorrow and has plenty of ampules at home. Chest x-ray is no acute findings. Coronavirus test is negative. She feels much improved after the above-stated therapies. Will place her on a burst of steroids, did provide cough medication prescriptions. Discussed at length monitoring for who did frequent shortness of breath fevers etcetera and encouraged follow-up with primary care provider in the next few days. Patient has been hemodynamically stable and oxygenating well throughout her stay in the ER. No questions or concerns upon discharge and states understanding of return precautions as well as follow-up care <Harley Mahmood DO - Last Filed: 02/03/20 00:33> Lab Data Labs: Lab Results 02/02/20 Range/Units 18:55 COVID-19 PCR Negative (Negative) Discharge Plan Departure Patient Disposition: Home Clinical Impression: Asthma Qualifiers: Asthma severity: unspecified severity Asthma persistence: unspecified Asthma complication type: with acute exacerbation Qualified Code(s): J45.901 - Unspecified asthma with (acute) exacerbation Discharge Date/Time: 02/02/20 21:05 Instructions: DI for Asthma -- Adult, DI for Cough -- Adult, Diet High in Fruits and Vegetables May Reduce Asthma Exacerbations Activity Restrictions/Additional Instructions: Thank you for trusting us with your care today. As discussed, your coronavirus test came back negative. Your chest x-ray shows no pneumonia. As discussed, I sent 3 prescriptions to [facility] including a steroid burst, narcotic cough syrup and Tessalon Perles for cough. I have given you a prescription of a narcotic for pain. Be aware that this can be constipating and sedating. I encouraged taking with a stool softener, pushing fluids and fiber. Do not take and drive, operate heavy machinery, etc. Do not combine it with any other sedating substances such as alcohol. The combination of narcotics and alcohol and/or other sedatives can be lethal. Please follow-up with primary care provider in the next few days. Please stay home and rest, push fluids and use [id number] medications as needed and able. Please come back to the emergency department for any acute concerns. Fever, vomiting, signs of systemic illness. Prescriptions: New prednisone 20 mg tablet 40 mg PO DAILY Qty: 10 RF: 0 benzonatate [Tessalon Perles] 100 mg capsule 100 mg PO BID-TID PRN (Reason: cough) Qty: 20 RF: 0 codeine-guaifenesin [Guaifenesin AC] 10-100 mg/5 mL liquid 10 ml PO Q4-6H PRN (Reason: cough) Qty: 100 RF: 0 No Action ProAir HFA 90 mcg/actuation HFA aerosol inhaler 2 puff INHALATION QID PRN (Reason: Pain (Scale Score 1-3)) Qty: 8.5 RF: 3 trazodone 50 mg tablet 25 mg PO BEDTIME PRN (Reason: insomnia) 30 Days Qty: 30 RF: 2 diphenhydramine HCl [Benadryl] 25 mg capsule 25 mg PO .PRN RF: 0 ipratropium-albuterol 0.5 mg-3 mg(2.5 mg base)/3 mL Solution For Nebulization 1 inh Inhalation Q3-4H PRN (Reason: SOB) RF: 0 acetaminophen [Tylenol] 325 mg Capsule 650 mg PO Q4H PRN (Reason: Pain (Scale Score 1-3)) RF: 0 Referrals: Nisha Juarez ARNP [Primary Care Provider] - Stand Alone Forms: Work Release Note <Harley Mahmood DO - Last Filed: 02/03/20 00:33> Cosign ED Attending Cosignature Attestation: I was immediately available in the department for consultation. This documentation has been reviewed and I agree with assessment and plan. Supervised by Harley Mahmood DO
[2020-02-02 19:19] LABS: COVID19 -Nasal RAPID Negative (Negative)
[2020-02-02 19:25] VITALS: PULSE 84; RESP 18; O2SAT 96
[2020-02-02] MEDS: ALBUTEROL/IPRATROPIUM 3 ML AMPUL INH (19:25)
[2020-02-02] MEDS: predniSONE 20 MG TABLET 60 MG PO (20:14)
[2020-02-02] MEDS: BENZONATATE 100 MG CAPSULE PO (20:55)
[2020-02-02 21:04] VITALS: BP 136/76; PULSE 80; RESP 16; O2SAT 99
== END 2020-02-02 21:05 | disposition home or self-care (01) ==
PROVIDERS: Emergency Provider Nurse Practitioner Family; PCP Registered Nurse
DX: J45.901 Unspecified asthma with (acute) exacerbation (principal); R06.02 Shortness of breath
CPT/HCPCS: 71046; 87635; 94640; 99283; 99284

== ENCOUNTER → 2020-02-10 17:23 | Outpatient (CLI) | payer OTHER, MEDICAID, SELFPAY ==
[2018-05-25 21:42] VITALS: BMI 44.4
--- NOTE | 2020-02-10 17:24 | DI.MG.S_ITS ---
BILATERAL DIGITAL SCREENING MAMMOGRAM 3D/2D WITH CAD: 02/10/2020 CLINICAL: Routine screening. Baseline exam. Family history of breast cancer. No prior exams were available for comparison. The tissue of both breasts is predominantly fatty. Current study was also evaluated with a Computer Aided Detection (CAD) system. No significant masses, calcifications, or other findings are seen in either breast. IMPRESSION: NEGATIVE There is no mammographic evidence of malignancy. A 1 year screening mammogram is recommended. This exam was interpreted at Station ID: [id number]. NOTE: For mammograms, a report in lay terms will be sent to the patient. Approximately 15% of breast malignancies will not be visualized mammographically. In the management of a palpable breast mass, a negative mammogram must not discourage biopsy of a clinically suspicious lesion. Electronically Signed By: Kevon barreto/lee:02/11/2020 13:49:40 letter sent: Normal Exam ACR BI-RADS Category 1: Negative [id number]
== END ==
PROVIDERS: PCP Registered Nurse; Referring Provider Registered Nurse; Visit Provider Registered Nurse
DX: Z12.31 Encounter for screening mammogram for malignant neoplasm of breast (principal); Z80.3 Family history of malignant neoplasm of breast
CPT/HCPCS: 77063; 77067

== ENCOUNTER 2020-02-23 22:32 | Observation (INO) | payer OTHER, MEDICAID, SELFPAY ==
[2018-05-25 21:42] VITALS: BMI 44.4
--- NOTE | 2020-02-23 22:52 | DI.RAD.S_ITS ---
PROCEDURE: XR CHEST 1V INDICATIONS: Chest pain TECHNIQUE: One view of the chest was acquired. COMPARISON: [facility], CR, XR CHEST 1V, 11/26/2019, 14:36. FINDINGS: Surgical changes and devices: None. Lungs and pleura: Lungs are clear. No pleural effusions or pneumothorax. Mediastinum: Mediastinal contours appear normal. Heart size is normal. Bones and chest wall: No suspicious bony lesions. Overlying soft tissues appear unremarkable. IMPRESSION: No acute cardiopulmonary disease process. Dictated by: Angela Maza MD, PhD on 02/24/2020 at 8:39 Approved by: Angela Maza MD, PhD on 02/24/2020 at 8:50
--- NOTE | 2020-02-23 22:53 | ED_ITS ---
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 Substernal. Does not radiate. Has dyspnea and dizziness with it. Improving. 10/24 discomfort. No nausea or vomiting. Does not feel like her asthma exacerbation. No recent illness cough cold congestion fever chills. No history of blood clots in legs or lungs. No family history of coronary artery disease. Patient does smoke daily. Patient states cannot take aspirin because it hurts her stomach severely. She understands part of cardiac workup but she declines having aspirin here. Related Data Home Medications Medication Instructions Recorded Confirmed acetaminophen [Tylenol] 650 mg PO Q4H PRN 05/25/18 01/01/20 ipratropium-albuterol 1 inh INHALATION Q3-4H PRN 05/25/18 01/01/20 diphenhydramine HCl 25 mg capsule 25 mg PO .PRN cap 01/01/20 01/01/20 Previous Rx's Medication Instructions Recorded trazodone 50 mg tablet 25 mg PO BEDTIME PRN 30 Days #30 12/09/19 tab albuterol sulfate 90 mcg/actuation 2 puff INHALATION QID PRN #8.5 gram 01/06/20 aerosol inhaler benzonatate [Tessalon Perles] 100 mg PO BID-TID PRN #20 cap 02/02/20 codeine-guaifenesin [Guaifenesin 10 ml PO Q4-6H PRN #100 ml 02/02/20 AC] prednisone 40 mg PO DAILY #10 tab 02/02/20 Allergies Allergy/AdvReac Type Severity Reaction Status Date / Time aspirin [ASPIRIN] Allergy Unknown Verified 01/01/20 09:41 Penicillins Allergy Unknown Verified 01/01/20 09:41 hydrocodone [HYDROCODONE] AdvReac Unknown head ache Verified 01/01/20 09:41 Review of Systems Review of Systems Narrative: GENERAL: Denies chills, fatigue, malaise, fever, sweats. HEENT: Denies sinus pain, ear pain, sore throat, difficulty swallowing RESPIRATORY: Complaint dyspnea, denies cough CARDIOVASCULAR: Complains chest pain, denies palpitations, edema, GASTROINTESTINAL: Denies nausea, vomiting, abdominal pain, diarrhea, constipation, melena. : Denies dysuria, frequency, hematuria MUSCULOSKELETAL: denies muscle or bony pain SKIN: Denies rash, skin lesions NEUROLOGIC: Denies weakness, headache, numbness, change in speech, confusion complains of dizziness PSYCHIATRIC: No SI or HI or hallucinations ROS Unobtainable: All systems reviewed & are unremarkable except as noted in HPI and below Patient History Medical History Anxiety (Chronic) Asthma (Acute) Chicken pox (Resolved ~1984) Fractures (Resolved) Headache (Chronic) Migraine (Chronic) Wears glasses (Chronic) Surgical History Anesthesia (Resolved) History of appendectomy (Resolved ~2002) History of oral surgery (Resolved) Family History Father History of heart disease Hypertension Wears hearing aid Brother Hyperlipidemia Social History household members: friend(s) and other Smoking Status: Current every day smoker alcohol intake: never Smoking Status: Current every day smoker alcohol intake frequency: holidays/special occasions only Substance Use Type: does not use Exam Narrative Exam Narrative: GENERAL: patient appears stated age. Well-nourished, well- developed patient, in no distress, not toxic not dyspneic HEAD: Normocephalic. EYES: Pupils equal round and reactive. No scleral icterus. No injection no discharge ENT: Mucous membranes moist. No drooling no tongue elevation no trismus no malocclusion NECK: Trachea midline. Non tender CARDIOVASCULAR: Regular rate and rhythm without murmurs, gallops, or rubs. RESPIRATORY: Clear to auscultation. Breath sounds equal bilaterally. No wheezes, rales, or rhonchi. GASTROINTESTINAL: Abdomen soft, non-tender, nondistended. EXTREMITIES: No gross deformities. BACK: Nontender without deformity or crepitance. No flank tenderness. NEURO: AOx4. SKIN: Warm and dry PSYCH: Not anxious, is cooperative Initial Vital Signs Initial Vital Signs: Vital Signs Temperature 97.5 F L 02/23/20 23:00 Pulse Rate 98 H 02/23/20 23:00 Respiratory Rate 24 02/23/20 23:00 Blood Pressure 152/79 H 02/23/20 23:00 Pulse Oximetry 100 02/23/20 23:00 Scores HEART Score Heart Score history: Slightly Suspicious Heart Score EKG: Normal Heart Score Age: < 45 years old Heart Score risk factors: No known risk factors Heart Score troponin: < or = to normal limit Heart Score Total: 0 Course Course Course Narrative: At this time white cell count nonspecific. No recent illness. No nausea vomiting diarrhea cough cold or congestion. No urinary complaints Decision to Admit Date: 02/23/20 Decision to Admit time: 23:50 Orders Ordered: ED Orders 02/23/20 22:52 XR chest 1V Stat Urine Drug Screen, Rapid Stat EKG-12 Lead Stat 02/23/20 22:59 Complete Blood Count AUTO DIFF Stat Comprehensive Metabolic Panel Stat D Dimer Stat Lipase Stat Partial Thromboplastin Time Stat Test Serum,Qual Stat Prothrombin Time INR Stat Troponin & CK Cardiac Panel Stat 02/23/20 23:52 COVID19 -ED/INPAT/OR/L&D Stat 02/24/20 00:35 Troponin I Stat Acetaminophen (Tylenol) 650 mg PO Q6HR PRN PRN Reason: Fever/Mild Pain (1-3) Al Hydrox/Mg Hydrox/Simethicone (Maalox Plus) 30 ml PO Q6HR PRN PRN Reason: Dyspepsia Bisacodyl (Dulcolax) 10 mg NH DAILY PRN PRN Reason: Constipation Enoxaparin Sodium (Lovenox) 40 mg SUBCUT DAILY MANDI Magnesium Hydroxide (Milk Of Magnesia) 30 ml PO DAILY PRN PRN Reason: Constipation Naloxone HCl (Narcan) 0.2 mg IV Q2MIN PRN PRN Reason: Opiate Reversal Nitroglycerin (Nitrostat) 0.4 mg SL [id number] PRN PRN Reason: Chest Pain Ondansetron HCl (Zofran) 4 mg IV Q8HR PRN PRN Reason: Nausea And Vomiting Discontinued Medications Nitroglycerin (Nitro-Bid) 0.5 inch TOP NOW ONE Stop: 02/23/20 22:54 Last Admin: 02/23/20 23:08 Dose: 0.5 inch Documented by: CAM Reevaluation(s) Reevaluation #1: Reviewed results with patient. Patient states chest pain pr essure improving with Dr. day Time: 23:51 Consultations Consultation #1: Spoke with hospice, [facility], will accept patient. I will repeat troponin at 12:30 a.m. before sending patient upstairs Time: 23:51 Vital Signs Vital signs: Vital Signs - 8 hr 02/23/20 23:00 02/23/20 23:32 02/24/20 00:00 Temperature 97.5 F L Pulse Rate 98 H 92 H 91 H Respiratory Rate 24 20 21 Blood Pressure 152/79 H 127/62 116/69 Pulse Oximetry 100 96 96 02/24/20 00:30 Temperature Pulse Rate 92 H Respiratory Rate 20 Blood Pressure 108/60 Pulse Oximetry 98 MDM - Chest Pain Differential Diagnosis Differential diagnosis: Likely stable angina, unstable angina pectoris, atypical chest pain, chest pain and other (Pulmonary embolism) Lab Data Attestation: I reviewed the patient's lab results. Result diagrams: 02/23/20 22:59 02/23/20 22:59 Labs: Lab Results 02/23/20 02/23/20 02/23/20 Range/Units 22:59 22:59 22:59 WBC 16.9 H (4.5-11.0) X10^3/uL RBC 4.35 (4.0-5.2) X10^6/uL Hgb 13.4 (12.0-16.0) g/dL Hct 40.5 (36-46) % MCV 93.2 (80-100) fL MCH 30.7 (26-34) PG MCHC 32.9 (30-36) % RDW 14.5 (11.6-14.8) % Plt Count 301 (150-400) X10^3/uL Neut % (Auto) 71.3 (50-75) % Lymph % (Auto) 18.7 L (25-40) % Conway % (Auto) 6.7 (3-14) % Eos % (Auto) 2.1 (2-4) % Baso % (Auto) 1.2 (0-2) % Neut # (Auto) 17238 H (6989-1721) /uL Lymph # (Auto) 3200 (2869-0546) /uL Conway # (Auto) 1100 H (0-900) /uL Eos # (Auto) 400 (0-450) /uL Baso # (Auto) 200 H (0-100) /uL PT 10.4 (10.1-12.7) SECONDS INR 0.9 (0.9-1.3) APTT 36 (26.4-36.2) SECONDS D-Dimer < 200 (<230) ng/mL Sodium 137 (137-145) mmol/L Potassium 3.5 (3.4-5.1) mmol/L Chloride 102 (98-107) mmol/L Carbon Dioxide 34 H (22-32) mmol/L BUN 13 (7-17) mg/dL Creatinine 0.68 (0.52-1.04) mg/dL Estimated GFR > 60.0 (>60) mL/min BUN/Creatinine Ratio 19.1 (6-22) Glucose 188 H (70-100) mg/dL Calcium 9.3 (8.4-10.2) mg/dL Total Bilirubin 0.6 (0.2-1.3) mg/dL AST 28 (14-36) IU/L ALT 29 (<35) IU/L Alkaline Phosphatase 78 (38-126) U/L Total Creatine Kinase 94 (30-135) U/L CK-MB (CK-2) TNP CK-MB (CK-2) Rel Index TNP Troponin I < 0.012 (0.01-0.034) ng/mL Total Protein 7.2 (6.3-8.2) g/dL Albumin 4.0 (3.5-5.0) g/dL Globulin 3.2 (1.7-4.1) g/dL Albumin/Globulin Ratio 1.3 (1.0-2.8) Lipase 104 (23-300) U/L Serum , Qual (Negative) COVID-19 PCR (Negative) 02/23/20 02/23/20 02/24/20 Range/Units 22:59 23:52 00:35 WBC (4.5-11.0) X10^3/uL RBC (4.0-5.2) X10^6/uL Hgb (12.0-16.0) g/dL Hct (36-46) % MCV (80-100) fL MCH (26-34) PG MCHC (30-36) % RDW (11.6-14.8) % Plt Count (150-400) X10^3/uL Neut % (Auto) (50-75) % Lymph % (Auto) (25-40) % Conway % (Auto) (3-14) % Eos % (Auto) (2-4) % Baso % (Auto) (0-2) % Neut # (Auto) (3807-3765) /uL Lymph # (Auto) (6014-2202) /uL Conway # (Auto) (0-900) /uL Eos # (Auto) (0-450) /uL Baso # (Auto) (0-100) /uL PT (10.1-12.7) SECONDS INR (0.9-1.3) APTT (26.4-36.2) SECONDS D-Dimer (<230) ng/mL Sodium (137-145) mmol/L Potassium (3.4-5.1) mmol/L Chloride (98-107) mmol/L Carbon Dioxide (22-32) mmol/L BUN (7-17) mg/dL Creatinine (0.52-1.04) mg/dL Estimated GFR (>60) mL/min BUN/Creatinine Ratio (6-22) Glucose (70-100) mg/dL Calcium (8.4-10.2) mg/dL Total Bilirubin (0.2-1.3) mg/dL AST (14-36) IU/L ALT (<35) IU/L Alkaline Phosphatase (38-126) U/L Total Creatine Kinase (30-135) U/L CK-MB (CK-2) CK-MB (CK-2) Rel Index Troponin I < 0.012 (0.01-0.034) ng/mL Total Protein (6.3-8.2) g/dL Albumin (3.5-5.0) g/dL Globulin (1.7-4.1) g/dL Albumin/Globulin Ratio (1.0-2.8) Lipase (23-300) U/L Serum , Qual Negative (Negative) COVID-19 PCR Negative (Negative) Imaging Data Chest x-ray: Radiologist's Impression: Normal chest, no evidence for pneumonia, normal heart lungs and mediastinum. ECG Data Attestation: I personally reviewed and interpreted this ECG as follows: Interpretation: Normal sinus rhythm normal EKG rate [address] elevation or depression MDM Narrative Medical decision making narrative: Appropriate for admission for stress test in observation. Discharge Plan Departure Patient Disposition: Admitted as Observation Clinical Impression: Chest pain Qualifiers: Chest pain type: unspecified Qualified Code(s): R07.9 - Chest pain, unspecified Discharge Date/Time: 02/24/20 01:45 Referrals: Nisha Juarez ARNP [Primary Care Provider] - Admit Date/Time: 02/24/20 01:29 Admit Provider: Max Mercedes
[2020-02-23 23:00] VITALS: BP 152/79; PULSE 98; RESP 24; TEMP 36.4; O2SAT 100; BMI 35.6
[2020-02-23] MEDS: NITROGLYCERIN OINT 1 INCH/GM OINT...G. 0.5 INCH TOP (23:08)
[2020-02-23 23:09] LABS: Add Manual Diff / Slide Review NO; Basophils Absolute Auto 200 /uL (0-100); Basophils Percent Auto 1.2 % (0-2); Eosinophils Absolute Auto 400 /uL (0-450); Eosinophils Percent Auto 2.1 % (2-4); Hematocrit 40.5 % (36-46); Hemoglobin 13.4 g/dL (12.0-16.0); Lymphocytes Absolute Auto 3200 /uL (1100-4500); Lymphocytes Percent Auto 18.7 % (25-40); Mean Corpuscular HGB Conc 32.9 % (30-36); Mean Corpuscular Hemoglobin 30.7 PG (26-34); Mean Corpuscular Volume 93.2 fL (80-100); Monocytes Absolute Auto 1100 /uL (0-900); Monocytes Percent Auto 6.7 % (3-14); Neutrophils Absolute Auto 12100 /uL (1500-7000); Neutrophils Percent Auto 71.3 % (50-75); Platelet Count 301 X10^3/uL (150-400); Red Blood Cell Count 4.35 X10^6/uL (4.0-5.2); Red Cell Distribution Width 14.5 % (11.6-14.8); White Blood Cell Count 16.9 X10^3/uL (4.5-11.0)
[2020-02-23 23:17] LABS: Alanine Aminotransferase 29 IU/L (<35); Albumin Globulin Ratio 1.3 (1.0-2.8); Alkaline Phosphatase 78 U/L (38-126); Aspartate Aminotransferase 28 IU/L (14-36); BUN Creatinine Ratio 19.1 (6-22); Bilirubin Total 0.6 mg/dL (0.2-1.3); Blood Urea Nitrogen 13 mg/dL (7-17); Calcium 9.3 mg/dL (8.4-10.2); Carbon Dioxide 34 mmol/L (22-32); Chloride 102 mmol/L (98-107); Creatine Kinase 94 U/L (30-135); Estimated Glomerular Filt Rate > 60.0 mL/min (>60); Globulin 3.2 g/dL (1.7-4.1); Glucose 188 mg/dL (70-100); HEMOLYSIS 28 (0-50); Lipase 104 U/L (23-300); Potassium 3.5 mmol/L (3.4-5.1); Sodium 137 mmol/L (137-145); Total Protein 7.2 g/dL (6.3-8.2)
[2020-02-23 23:24] LABS: Pregnancy Test Serum,Qual Negative (Negative)
[2020-02-23 23:29] LABS: Troponin I < 0.012 ng/mL (0.01-0.034)
[2020-02-23 23:32] VITALS: BP 127/62; PULSE 92; RESP 20; O2SAT 96
[2020-02-23 23:35] LABS: INR 0.9 (0.9-1.3); Prothrombin Time 10.4 SECONDS (10.1-12.7)
[2020-02-23 23:38] LABS: D Dimer < 200 ng/mL (<230); PTT Partial Thromboplastin Tim 36 SECONDS (26.4-36.2)
[2020-02-24] VITALS (9 sets, daily range): BP systolic 108–131; BP diastolic 60–98; PULSE 83–92; RESP 17–21; TEMP 36.4–36.7; O2SAT 91–98; BMI 42.7
[2020-02-24 00:14] LABS: COVID19 -Nasal RAPID Negative (Negative)
[2020-02-24 01:07] LABS: Troponin I < 0.012 ng/mL (0.01-0.034)
--- NOTE | 2020-02-24 01:43 | DI.NM.S_ITS ---
PROCEDURE: NM [place] PERF SPECT REST & STR Rest and exercise myocardial perfusion SPECT with gated imaging and ejection fraction RADIOPHARMACEUTICAL: 12.2 mCi Tc-99m sestamibi IV at rest and 24.8 mCi Tc-99m sestamibi IV at peak exercise. A two day-protocol was performed. INDICATIONS: Chest pain, obese TECHNIQUE: Radiopharmaceutical was injected at peak stress test, and also at rest. SPECT images were obtained. SPECT myocardial perfusion images were displayed in short axis, horizontal long axis, and vertical long axis views. Gated images were reviewed using Stilnest software. COMPARISON: None. CARDIAC STRESS: A standard Ravinder treadmill exercise tolerance test was performed by the patient under the supervision of an attending staff. The patient exercised for 6 minutes and 33 seconds; functional aerobic impairment (JANNET) is +25%. Hemodynamic data: There is normal blood pressure and heart rate response to exercise stress. Patient achieved 89% of maximum predicted heart rate at peak exercise. Symptoms: Patient denied chest pain during exercise. EKG: No diagnostic EKG changes of ischemia; no ectopy. FINDINGS: Raw data: There is good myocardial labeling by radiotracer. No significant motion artifacts. Ljew-ez-oshre ratio is 0.48 (normal is less than 0.38 for sestamibi tracer, and less than 0.50 for thallium tracer). Left ventricle function: Gated images demonstrate normal left ventricle wall thickening. No segmental wall motion abnormality. No transient ischemic dilation; TID is 1.02 (normal less than 1.3). The left ventricle resting end-diastolic volume is 112 mL. Left ventricle stress ejection fraction is 72%; normal values are above 45%. Myocardial perfusion: There is normal distribution of activity in the left and right ventricular myocardium. No fixed or reversible perfusion defects. IMPRESSION: Low risk, normal treadmill nuclear stress test from ischemia standpoint. Consider Echo to assess cardiac structure given elevated lung-heart ratio 1) No perfusion evidence of ischemia or infarction. 2) Normal left ventricular size, wall motion, and systolic function (EF post stress 72%). 3) Elevated lung-heart ratio of 0.48. Consider Echo to rule out structural heart disease. 4) No angina during the study. 5) No ECG evidence of ischemia. 6) Reduced exercise tolerance (7.0 METs, JANNET +25%). Target heart rate achieved, 7) Hypertensive response to exercise (resting BP 108/68mmHg, max BP 210/90mmHg). 8) No prior nuclear stress test available for comparison. Dictated by: Chino Subramanian MD on 02/24/2020 at 15:16 Approved by: Chino Subramanian MD on 02/24/2020 at 15:22
--- NOTE | 2020-02-24 01:46 | PM.HP.1 ---
History of Present Illness History of Present Illness Date Patient Seen: 02/24/20 Time Patient Seen: 01:23 Chief complaint: dizziness, chest feels full Narrative: Ms. Kendal Dozier is a 39-year-old female patient with a history significant for asthma, migraines, anxiety and obesity who presents to the ER complaints of chest pain. Patient states she has developed chest pressure behind the top of her sternum that was nonradiating and nonpleuritic. The patient states she was driving in her car 1 hour prior to arrival at the time of onset. She had associated symptoms of lightheadedness and dizziness and sensation of racing heart. She denies complaints of nausea vomiting has had no shortness of breath. She has a history of anxiety describes it is different than any previous anxiety attack and she also has asthma and has had no respiratory complaints or wheezing. The patient was seen in the ER 1 month ago for shortness of breath and cough and discharged with a diagnosis of asthma exacerbation. She reports no recent illness, fevers or chills. She denies COVID-19 exposures. She denies headaches or dizziness nasal congestion or sore throat. She has never experienced this kind of a chest pressure previously Ms. centeno reports racing heart which resolved by arrival to the ER. She has had no abdominal pain and denies nausea vomiting and has had no changes in urinary or bowel habits. The patient is independent in all ADLs and uses no assistive devices. Upon arrival to the ER the patient is afebrile with temperature 97.5?, heart rate 98, blood pressure 152/78, respirations 24 section 100% on room air. The patient complains of pain at a 7/10. EKG is obtained which finds and sinus rhythm with ventricular rate of 96, normal axis without ectopy, no ST or T-wave changes and no evidence of infarct. Chest x-ray is read as normal heart and mediastinum with no evidence pneumonia. On laboratory analysis she has white count elevated at 16.9 with an increase in absolute neutrophils at 12,100 and monocytes at 1100 and basophils at 200. Her hemoglobin is 13.4, hematocrit 40.5 platelets 301. Her PT is 10.4 with a INR of 0.9 and a PTT of 36. Electrolytes are all within normal limits she has a BUN 13 and creatinine 0.68. Her nonfasting glucose is 188. Her liver functions are all within normal limits and she has a total CK of 94 and troponin is less than 0.012 x 2. In the ER the patient received to have inch of topical nitroglycerin with improvement in chest discomfort. The patient is admitted to the medicine service for chest pain. Patient History Medical History (Updated 02/24/20 @ 01:55 by CAROL Chin) Anxiety (Chronic) Asthma (Acute) Carpal tunnel syndrome (Acute) Chicken pox (Resolved ~1984) Fractures (Resolved) Headache (Chronic) Migraine (Chronic) Tennis elbow (Acute) Wears glasses (Chronic) Surgical History Anesthesia (Resolved) History of appendectomy (Resolved ~2002) History of oral surgery (Resolved) Family & Social History Family History (Updated 02/24/20 @ 01:56 by CAROL Chin) Father History of heart disease Hypertension Wears hearing aid Brother Hyperlipidemia Mother No significant medical problems Social History: household members friend(s),other Safety & Behavioral: Feels Safe in Current Yes Environment Been Physically Hurt or No Threatened By a Person Tobacco & Substance use: Tobacco type cigarettes Smoking Status Current every day smoker alcohol intake never alcohol intake frequency holiday/special occasion Substance Use Type does not use Meds Home Medications and Allergies Home Medications Medication Instructions Recorded Confirmed Type acetaminophen [Tylenol] 650 mg PO Q4H PRN 05/25/18 01/01/20 History ipratropium-albuterol 1 inh INHALATION Q3-4H PRN 05/25/18 01/01/20 History trazodone 50 mg tablet 25 mg PO BEDTIME PRN 30 Days #30 12/09/19 01/01/20 Rx tab diphenhydramine HCl 25 mg capsule 25 mg PO .PRN cap 01/01/20 01/01/20 History albuterol sulfate 90 mcg/actuation 2 puff INHALATION QID PRN #8.5 gram 01/06/20 Rx aerosol inhaler benzonatate [Tessalon Perles] 100 mg PO BID-TID PRN #20 cap 02/02/20 Rx codeine-guaifenesin [Guaifenesin 10 ml PO Q4-6H PRN #100 ml 02/02/20 Rx AC] prednisone 40 mg PO DAILY #10 tab 02/02/20 Rx Allergies Allergy/AdvReac Type Severity Reaction Status Date / Time aspirin [ASPIRIN] Allergy Unknown Verified 01/01/20 09:41 Penicillins Allergy Unknown Verified 01/01/20 09:41 hydrocodone [HYDROCODONE] AdvReac Unknown head ache Verified 01/01/20 09:41 Review of Systems Review of Systems ROS: Yes All systems reviewed with the patient and are negative except as otherwise documented Exam Vital Signs (past 8 hours): - 02/23/20 23:00 02/23/20 23:32 02/24/20 00:00 Temperature 97.5 F L Pulse Rate 98 H 92 H 91 H Respiratory Rate 24 20 21 Blood Pressure 152/79 H 127/62 116/69 Pulse Oximetry 100 96 96 02/24/20 00:30 Temperature Pulse Rate 92 H Respiratory Rate 20 Blood Pressure 108/60 Pulse Oximetry 98 Oxygen Delivery Method Room Air Narrative Exam Narrative: GENERAL APPEARANCE: well developed, obese female with a BMI of 35.7, in no acute distress. HEENT: Normocephalic, PERRLA, conjunctiva clear, EOMs intact without nystagmus, no sinus tenderness to percussion, no rhinorrhea, mucous membranes are moist and pink without lesions or exudate. NECK/THYROID: neck supple, no JVD, no carotid bruit, no thyromegaly, trachea midline. LYMPH NODES: no cervical or supraclavicular lymphadenopathy. SKIN: [place], warm and dry, no visible lesions, rashes, ulcerations or petechiae. HEART: regular rate and rhythm, S1-S2, no murmur, no rubs or gallops, brisk capillary refill, no edema. LUNGS: clear to auscultation bilaterally, diminished bibasilar, no coarseness crackles or wheezing, no cough present. CHEST: Symmetrical movement, no accessory muscle use, good tidal volume. ABDOMEN: Soft, protuberant, nondistended, no epigastric or abdominal tenderness, no organomegaly, no flank or suprapubic tenderness, active bowel tones. BACK: Normal curvature, nontender to palpation, no CVA tenderness on percussion. EXTREMITIES: moves all extremities, BUE and BLE strength is 5/5 and symmetrical, no deformities or joint effusions. NEUROLOGIC: AAO x4, no focal neurologic deficits, cranial nerves II-XII grossly intact, sensation intact to light touch, hearing grossly normal to speech. PSYCH: Good eye contact, linear thought process, cooperative, appropriate with stable behavior. Objective Labs Result Diagrams: 02/23/20 22:59 02/23/20 22:59 Labs: Laboratory Results - last 24 hr 02/23/20 02/23/20 02/23/20 22:59 22:59 22:59 WBC 16.9 H RBC 4.35 Hgb 13.4 Hct 40.5 MCV 93.2 MCH 30.7 MCHC 32.9 RDW 14.5 Plt Count 301 Neut % (Auto) 71.3 Lymph % (Auto) 18.7 L Kidder % (Auto) 6.7 Eos % (Auto) 2.1 Baso % (Auto) 1.2 Neut # (Auto) 97493 H Lymph # (Auto) 3200 Kidder # (Auto) 1100 H Eos # (Auto) 400 Baso # (Auto) 200 H PT 10.4 INR 0.9 APTT 36 D-Dimer < 200 Sodium 137 Potassium 3.5 Chloride 102 Carbon Dioxide 34 H BUN 13 Creatinine 0.68 Estimated GFR > 60.0 BUN/Creatinine Ratio 19.1 Glucose 188 H Calcium 9.3 Total Bilirubin 0.6 AST 28 ALT 29 Alkaline Phosphatase 78 Total Creatine Kinase 94 CK-MB (CK-2) TNP CK-MB (CK-2) Rel Index TNP Troponin I < 0.012 Total Protein 7.2 Albumin 4.0 Globulin 3.2 Albumin/Globulin Ratio 1.3 Lipase 104 Serum , Qual COVID-19 PCR 02/23/20 02/23/20 02/24/20 22:59 23:52 00:35 WBC RBC Hgb Hct MCV MCH MCHC RDW Plt Count Neut % (Auto) Lymph % (Auto) Kidder % (Auto) Eos % (Auto) Baso % (Auto) Neut # (Auto) Lymph # (Auto) Kidder # (Auto) Eos # (Auto) Baso # (Auto) PT INR APTT D-Dimer Sodium Potassium Chloride Carbon Dioxide BUN Creatinine Estimated GFR BUN/Creatinine Ratio Glucose Calcium Total Bilirubin AST ALT Alkaline Phosphatase Total Creatine Kinase CK-MB (CK-2) CK-MB (CK-2) Rel Index Troponin I < 0.012 Total Protein Albumin Globulin Albumin/Globulin Ratio Lipase Serum , Qual Negative COVID-19 PCR Negative Assessment & Plan Assessment & Plan narrative: This is a 39-year-old female patient who presents to the ER with complaints of upper substernal chest pain nonradiating and nonpleuritic with associated complaints of racing heart. 1. Atypical chest pain, acute, present on admission, active. -the patient describes chest tightness in the upper chest that was nonradiating and nonpleuritic. Was sudden in onset and non provoked occurring while driving. -the patient has not experienced this kind of discomfort previously and describes it is different than anxiety attack or asthma exacerbation, -no significant family history of cardiac disease however the patient is obese and has elevated glucose at 188. -12 lead EKG finds normal sinus rhythm with a ventricular rate of 96 normal axis without ectopy, no ST or T-wave changes no evidence of infarct and chest x-ray finds normal heart and mediastinum and no pneumonia. -patient nitroglycerin 1/2 inch topical applied in the ER. Ordered nitroglycerin 0.4 mg sublingual Q 5 minutes x3 as needed for chest pain and morphine 2 mg IV Q 5 minutes as needed for refractory chest pain. -the patient reports an allergy to aspirin. -order a cardiac stress test. 2. Possible arrhythmia, acute not present on admission, active. -patient reports feeling of racing heart, feeling of apprehension, lightheadedness and dizziness. -no previous history of SVT or atrial fibrillation, 12 lead EKG shows a normal sinus rhythm at a rate of 96 without ectopy, normal axis, no delta waves or short p.r. interval, no ST or T-wave changes. -patient will be monitored on telemetry and may warrant a Holter monitor or Zio patch equipment monitor phototypesetting as outpatient. 3. Leukocytosis, unclear significance, present on admission, active. -patient presents with an elevated white count at 16.9 with elevated absolute neutrophils at 12,100, lymphs within normal range, monocytes elevated at 1100, eosinophils within normal limits and elevated basophils at 200. -patient seen in the ER on 02/02/2020 and diagnosed with asthma exacerbation which patient states usually triggered by allergies but has chronic cough since. -chest x-ray is unremarkable, patient denies abdominal pain, nausea vomiting, will obtain urinalysis. 4. Hyperglycemia without diagnosis of diabetes, present on admission, active -patient's blood sugar of 188 on admission labs, will recheck fingerstick glucose upon arrival to the inpatient floor. -will obtain a hemoglobin A1c. -patient is placed on a heart healthy consistent carbohydrate diet. 5. Asthma, allergy induced, chronic, stable -breath sounds are clear upper and diminished in the bases with no evidence of wheezing, coarseness or cough. -patient was seen in the ER 1 month ago for asthma exacerbation and has had multiple episodes of burst steroid therapy. -chest x-ray finds no cardiac or pulmonary pathology. -will continue patient's home regimen of albuterol inhaler 2 puffs every 4 hours as needed for wheezing or shortness of breath. Atypical chest pain 6. Anxiety, chronic, stable -patient denies symptoms of anxiety and is on no routine angiolytic medication. 7. Obese with BMI 35.7, chronic, active -obesity increases the patient's risk factor for cardiac disease, diabetes and is found to have hyperglycemia with a blood sugar 188 on admission. -request dietitian consult. VTE prophylaxis: Bilateral SCDs, enoxaparin IV fluid: Saline lock Diet: Heart healthy consistent carbohydrate Code status: Full code the patient designates her mother Camelia Fowler to be her surrogate decision maker. Patient is admitted to the hospital for overnight cardiac monitoring and further evaluation of chest pain. The patient is admitted as observation with expected length of stay to be less than 2 midnights. COVID-19 COVID-19 status: Negative Result date/Date tested (Pos, Neg/Pending): 02/24/20 Scores GCS [place] coma scale eye opening: Spontaneous Jack coma scale verbal response: Orientated Jack coma scale motor response: Obey commands [place] coma scale total score: 15
[2020-02-24 02:00] LABS: Magnesium 1.9 mg/dL (1.6-2.3)
[2020-02-24 02:19] LABS: Hemoglobin A1C% w Est Avg Glu 6.9 % (4.0-6.0)
[2020-02-24 02:49] LABS: TSH w/ Reflex to FT4 2.52 uIU/mL (0.47-4.68)
[2020-02-24] MEDS: BENZONATATE 100 MG CAPSULE 200 MG PO (02:51)
[2020-02-24] MEDS: POTASSIUM CHLORIDE 20 MEQ TAB PO (06:16)
[2020-02-24] MEDS: ACETAMINOPHEN 325 MG TABLET 650 MG PO ×2 (06:18→12:26)
[2020-02-24 06:23] LABS: Add Manual Diff / Slide Review NO; Basophils Absolute Auto 100 /uL (0-100); Eosinophils Absolute Auto 400 /uL (0-450); Eosinophils Percent Auto 3.1 % (2-4); Hematocrit 38.5 % (36-46); Hemoglobin 12.6 g/dL (12.0-16.0); Lymphocytes Absolute Auto 3300 /uL (1100-4500); Lymphocytes Percent Auto 27.1 % (25-40); Mean Corpuscular HGB Conc 32.9 % (30-36); Mean Corpuscular Hemoglobin 30.8 PG (26-34); Mean Corpuscular Volume 93.7 fL (80-100); Monocytes Absolute Auto 1000 /uL (0-900); Monocytes Percent Auto 8.3 % (3-14); Neutrophils Absolute Auto 7400 /uL (1500-7000); Neutrophils Percent Auto 60.5 % (50-75); Platelet Count 279 X10^3/uL (150-400); Red Cell Distribution Width 14.8 % (11.6-14.8); White Blood Cell Count 12.2 X10^3/uL (4.5-11.0)
--- NOTE | 2020-02-24 06:28 | PC.NURSE ---
Patient denied chest pain this shift. did c/o headache, tylenol given. Nitro paste placed in ED was removed.
[2020-02-24 06:41] LABS: BUN Creatinine Ratio 26.2 (6-22); Blood Urea Nitrogen 16 mg/dL (7-17); Calcium 8.8 mg/dL (8.4-10.2); Carbon Dioxide 32 mmol/L (22-32); Chloride 104 mmol/L (98-107); Cholesterol 202 mg/dL (140-199); Estimated Glomerular Filt Rate > 60.0 mL/min (>60); Glucose 150 mg/dL (70-100); HDL Cholesterol 39 mg/dL (40-60); HEMOLYSIS 20 (0-50); LDL Cholesterol Calculated 134 mg/dL (<100); Sodium 137 mmol/L (137-145); Triglycerides 144 mg/dL (35-150)
[2020-02-24 06:52] LABS: Troponin I < 0.012 ng/mL (0.01-0.034)
[2020-02-24 07:44] LABS: Bacteria Urine None Seen; RBC Urine None Seen (0-5/HPF); WBC Urine None Seen (0-5/HPF)
[2020-02-24 07:49] LABS: Appearance Urine UA CLEAR; Bilirubin Urine UA NEGATIVE (NEGATIVE); Color Urine UA YELLOW; Glucose Urine UA NEGATIVE (Negative); Ketones Urine UA NEGATIVE (NEGATIVE); Leukocyte Esterase Urine UA NEGATIVE (NEGATIVE); Nitrite Urine UA NEGATIVE (Negative); Occult Blood Urine UA NEGATIVE (Negative); Protein Urine UA NEGATIVE (Negative); Specific Gravity Urine UA 1.025 (1.000-1.035); Urobilinogen Urine UA 0.2 E.U./dL (0.2)
[2020-02-24 07:51] LABS: pH Urine UA 5.5 (4.5-8.0)
[2020-02-24 07:52] LABS: UR Morphine/Opiate cutoff 300 Negative (Negative); Ur Creatinine Normal (Normal); Ur Specific Gravity Normal (Normal); Urine Amphetamines Negative (Negative); Urine Barbiturates Negative (Negative); Urine Benzodiazepines Negative (Negative); Urine Cocaine Negative (Negative); Urine MDMA Negative (Negative); Urine Methadone Negative (Negative); Urine Methamphetamines Negative (Negative); Urine Oxycodone Negative (Negative); Urine Phencyclidine Negative (Negative); Urine Tetrahydrocannabinol Negative (Negative); Urine Tricyclic Antidepressant Negative (Negative); Urine pH Normal (Normal)
[2020-02-24 07:55] LABS: Culture Indicated Urine Cult Not Indicated; Urine Comments Microscopic Normal
[2020-02-24] MEDS: ENOXAPARIN 40 MG/0.4 ML SYRINGE SUBCUT (09:55)
[2020-02-24] MEDS: SODIUM CHLORIDE 0.9% FLUSH 10 ML IV (09:55)
--- NOTE | 2020-02-24 11:03 | CM.DANOTE ---
Patient is a 39 year old female who was admitted OBS on 02/24/20 for Dizziness/Chest Pain. Pt has [employer] and [facility] for insurance and her PCP is dr. Nisha Juarez. EMR was reviewed. Per MD, pt with a hx of asthma, migraines, anxiety and will rule out chest pain and stress test ordered. Pt likely can d/c home later today pending stress test results. SW met bedside with pt and explained role and pt confirms she lives just outside of [place] in a single cabin on her family friend's property with full utilities. Pt has new kitten and is active and independent at baseline and no home oxygen anymore needed. Pt moved from [place] with roommates a while ago and continues to drive to work on [employer] and denies any hx of HH or SNF. Pt confirms that she is feeling better and preference is home to her kitten today if medically stable and states she has her vehicle in the parking lot and comfortable with short drive home. Pt also thinks she has Medicaid transportation benefits still if needed. Plan: SW to follow after stress test to confirm she is medically stable to d/c home today independently. CANDI Chicas Discharge Planning/Care Management CM Discharge Assessment Start: 02/24/20 11:01 Freq: Status: Active Protocol: Document 02/24/20 11:01 (Rec: 02/24/20 11:03 [id number]) Discharge Planning Assessment Assigned Flume Tender CANDI Vargas DPOA/Assigned Designee Name none Advance Directives? No Advance Directives on File No History Provided By Patient,Medical Record Has Patient been admitted in last 30 No days? Prior Living Arrangements Apartment/Condo Comment Single cabin on friend's property Household Members none Type of transporation used prior to Drives own vehicle admit Willing to Return to Facility? Lives in cabin Independent with ADL's Yes Is patient alert and oriented? Yes Caregiver for Another No Barriers to Discharge No Discharge Plan Home Referrals Initiated None needed Whiteboard Updated in Patient Room with Yes name and ext. # of Flume Tender Review Status In Process Please Provide Date Initial DC 02/24/20 Assessment Was Performed Next Review Type Continued Stay Review
[2020-02-24] MEDS: IBUPROFEN 600 MG TABLET PO (14:19)
--- NOTE | 2020-02-24 14:28 | PC.NURSE ---
Patient independent in the room. A/Ox4. NPO until after stress test. C/O headache, medications ordered and patient given an opportunity to shower which helped. R hand IV, saline locked. Patent. Patient is voiding. No N/V. Denies chest pain or radiating pain to limbs. No concerns or complaints at this time. Call light bedside.
--- NOTE | 2020-02-24 17:17 | P.DS_ITS ---
History of Present Illness History of Present Illness Date Patient Seen: 02/24/20 Time Patient Seen: 17:17 Chief complaint: dizziness, chest feels full Narrative: As per CAROL Chin: Ms. Kendal Dozier is a 39-year-old female patient with a history significant for asthma, migraines, anxiety and obesity who presents to the ER complaints of chest pain. Patient states she has developed chest pressure behind the top of her sternum that was nonradiating and nonpleuritic. The patient states she was driving in her car 1 hour prior to arrival at the time of onset. She had associated symptoms of lightheadedness and dizziness and sensation of racing heart. She denies complaints of nausea vomiting has had no shortness of breath. She has a history of anxiety describes it is different than any previous anxiety attack and she also has asthma and has had no respiratory complaints or wheezing. The patient was seen in the ER 1 month ago for shortness of breath and cough and discharged with a diagnosis of asthma exacerbation. She reports no recent illness, fevers or chills. She denies COVID-19 exposures. She denies headaches or dizziness nasal congestion or sore throat. She has never experienced this kind of a chest pressure previously Ms. centeno reports racing heart which resolved by arrival to the ER. She has had no abdominal pain and denies nausea vomiting and has had no changes in urinary or bowel habits. The patient is independent in all ADLs and uses no assistive devices. Upon arrival to the ER the patient is afebrile with temperature 97.5?, heart rate 98, blood pressure 152/78, respirations 24 section 100% on room air. The patient complains of pain at a 7/10. EKG is obtained which finds and sinus rhythm with ventricular rate of 96, normal axis without ectopy, no ST or T-wave changes and no evidence of infarct. Chest x-ray is read as normal heart and mediastinum with no evidence pneumonia. On laboratory analysis she has white count elevated at 16.9 with an increase in absolute neutrophils at 12,100 and monocytes at 1100 and basophils at 200. Her hemoglobin is 13.4, hematocrit 40.5 platelets 301. Her PT is 10.4 with a INR of 0.9 and a PTT of 36. Electrolytes are all within normal limits she has a BUN 13 and creatinine 0.68. Her nonfasting glucose is 188. Her liver functions are all within normal limits and she has a total CK of 94 and troponin is less than 0.012 x 2. In the ER the patient received to have inch of topical nitroglycerin with improvement in chest discomfort. The patient is admitted to the medicine service for chest pain. Discharge Providers Provider Date of admission: 02/24/20 01:29 Discharge Date: 02/24/20 Primary care physician: CAROL Pantoja Consults: 02/24/20 01:42 Consult to Dietitian, Adult Routine Comment: Reason For Exam: Obese, BMI 35.7, chest pain Consult to Discharge Planning Routine Comment: Discharge provider: Max Beltrán DO Summary Hospital Course Discharge Diagnosis: 1. Atypical chest pain, acute, present on admission, active. 2. Possible arrhythmia, not present on admission, active. 3. Leukocytosis, unclear significance, present on admission, improved. 4. Type 2 diabetes, diet controlled, present on admission, active 5. Asthma, allergy induced, chronic, stable 6. Obesity with BMI 35.7, chronic, active Hospital Course: This is a 39-year-old female with a past medical history of asthma and prior arrhythmia who presented with atypical chest pain that occurred while she was driving. She underwent a cardiac stress test which was deemed low risk and she had no recurrence of her symptoms. Telemetry was unremarkable and her troponins were negative. She did report a history of prior arrhythmia but no events were seen as noted previously. EKG showed normal sinus rhythm with no significant ST or T-wave changes. She did have a mildly elevated blood glucose on admission and A1c was elevated at 6.9%. Patient was offered metformin but she politely refused stating that she had not tolerated this before and wanted to continue working on her diet and exercise as this has improved her A1c from near 8 to now 6.9. She had a mild leukocytosis on admission as well that impr clare. She had no evidence for infection with a negative chest x-ray and no other symptoms. She will follow-up with her primary care provider for further evaluation if her chest pain should continue. Exam Vital Signs (past 8 hours): - 02/24/20 11:05 02/24/20 15:45 Temperature 98.0 F 97.5 F L Pulse Rate 88 86 Respiratory Rate 17 19 Blood Pressure 131/98 H 126/79 Pulse Oximetry 98 96 Oxygen Delivery Method Room Air Oxygen Flow Rate 0 Narrative Exam Narrative: GENERAL APPEARANCE: well developed, obese female with a BMI of 42.7, in no acute distress. HEENT: Normocephalic, PERRLA, conjunctiva clear, EOMs intact without nystagmus, no sinus tenderness to percussion, no rhinorrhea, mucous membranes are moist and pink without lesions or exudate. NECK/THYROID: neck supple, no JVD, no carotid bruit, no thyromegaly, trachea midline. LYMPH NODES: no cervical or supraclavicular lymphadenopathy. SKIN: [place], warm and dry, no visible lesions, rashes, ulcerations or petechiae. HEART: regular rate and rhythm, S1-S2, no murmur, no rubs or gallops, brisk capillary refill, no edema. LUNGS: clear to auscultation bilaterally, diminished bibasilar, no coarseness crackles or wheezing, no cough present. CHEST: Symmetrical movement, no accessory muscle use, good tidal volume. ABDOMEN: Soft, protuberant, nondistended, no epigastric or abdominal tenderness, no organomegaly, no flank or suprapubic tenderness, active bowel tones. BACK: Normal curvature, nontender to palpation, no CVA tenderness on percussion. EXTREMITIES: moves all extremities, BUE and BLE strength is 5/5 and symmetrical, no deformities or joint effusions. NEUROLOGIC: AAO x4, no focal neurologic deficits, cranial nerves II-XII grossly intact, sensation intact to light touch, hearing grossly normal to speech. PSYCH: Good eye contact, linear thought process, cooperative, appropriate with stable behavior. Objective Labs Result Diagrams: 02/24/20 06:15 02/24/20 06:15 Labs: Laboratory Results - last 24 hr 02/23/20 02/23/20 02/23/20 22:59 22:59 22:59 WBC 16.9 H RBC 4.35 Hgb 13.4 Hct 40.5 MCV 93.2 MCH 30.7 MCHC 32.9 RDW 14.5 Plt Count 301 Neut % (Auto) 71.3 Lymph % (Auto) 18.7 L [place] % (Auto) 6.7 Eos % (Auto) 2.1 Baso % (Auto) 1.2 Neut # (Auto) 95250 H Lymph # (Auto) 3200 [place] # (Auto) 1100 H Eos # (Auto) 400 Baso # (Auto) 200 H PT 10.4 INR 0.9 APTT 36 D-Dimer < 200 Sodium 137 Potassium 3.5 Chloride 102 Carbon Dioxide 34 H BUN 13 Creatinine 0.68 Estimated GFR > 60.0 BUN/Creatinine Ratio 19.1 Glucose 188 H Hemoglobin A1c Calcium 9.3 Magnesium Total Bilirubin 0.6 AST 28 ALT 29 Alkaline Phosphatase 78 Total Creatine Kinase 94 CK-MB (CK-2) TNP CK-MB (CK-2) Rel Index TNP Troponin I < 0.012 Total Protein 7.2 Albumin 4.0 Globulin 3.2 Albumin/Globulin Ratio 1.3 Triglycerides Cholesterol LDL Cholesterol, Calc HDL Cholesterol Lipase 104 TSH Serum , Qual Urine Color Urine Appearance Urine pH Ur Specific [place] Urine Protein Urine Glucose (UA) Urine Ketones Urine Occult Blood Urine Nitrate Urine Bilirubin Urine Urobilinogen Ur Leukocyte Esterase Urine RBC Urine WBC Urine Bacteria Ur Culture Indicated? Micro UA Comment U Opiates 300ng/mL cut Ur Oxycodone Screen Urine Methadone Screen Ur Barbiturates Screen U Tricyclic Antidepress Ur Phencyclidine Scrn Ur Amphetamines Screen U Methamphetamines Scrn Ur MDMA Scrn (Ecstasy) U Benzodiazepines Scrn Urine Cocaine Screen U Marijuana (THC) Screen COVID-19 PCR 02/23/20 02/23/20 02/23/20 22:59 22:59 22:59 WBC RBC Hgb Hct MCV MCH MCHC RDW Plt Count Neut % (Auto) Lymph % (Auto) [place] % (Auto) Eos % (Auto) Baso % (Auto) Neut # (Auto) Lymph # (Auto) [place] # (Auto) Eos # (Auto) Baso # (Auto) PT INR APTT D-Dimer Sodium Potassium Chloride Carbon Dioxide BUN Creatinine Estimated GFR BUN/Creatinine Ratio Glucose Hemoglobin A1c 6.9 H Calcium Magnesium Total Bilirubin AST ALT Alkaline Phosphatase Total Creatine Kinase CK-MB (CK-2) CK-MB (CK-2) Rel Index Troponin I Total Protein Albumin Globulin Albumin/Globulin Ratio Triglycerides Cholesterol LDL Cholesterol, Calc HDL Cholesterol Lipase TSH 2.52 Serum , Qual Negative Urine Color Urine Appearance Urine pH Ur Specific [place] Urine Protein Urine Glucose (UA) Urine Ketones Urine Occult Blood Urine Nitrate Urine Bilirubin Urine Urobilinogen Ur Leukocyte Esterase Urine RBC Urine WBC Urine Bacteria Ur Culture Indicated? Micro UA Comment U Opiates 300ng/mL cut Ur Oxycodone Screen Urine Methadone Screen Ur Barbiturates Screen U Tricyclic Antidepress Ur Phencyclidine Scrn Ur Amphetamines Screen U Methamphetamines Scrn Ur MDMA Scrn (Ecstasy) U Benzodiazepines Scrn Urine Cocaine Screen U Marijuana (THC) Screen COVID-19 PCR 02/23/20 02/24/20 02/24/20 23:52 00:35 00:35 WBC RBC Hgb Hct MCV MCH MCHC RDW Plt Count Neut % (Auto) Lymph % (Auto) [place] % (Auto) Eos % (Auto) Baso % (Auto) Neut # (Auto) Lymph # (Auto) [place] # (Auto) Eos # (Auto) Baso # (Auto) PT INR APTT D-Dimer Sodium Potassium Chloride Carbon Dioxide BUN Creatinine Estimated GFR BUN/Creatinine Ratio Glucose Hemoglobin A1c Calcium Magnesium 1.9 Total Bilirubin AST ALT Alkaline Phosphatase Total Creatine Kinase CK-MB (CK-2) CK-MB (CK-2) Rel Index Troponin I < 0.012 Total Protein Albumin Globulin Albumin/Globulin Ratio Triglycerides Cholesterol LDL Cholesterol, Calc HDL Cholesterol Lipase TSH Serum , Qual Urine Color Urine Appearance Urine pH Ur Specific [place] Urine Protein Urine Glucose (UA) Urine Ketones Urine Occult Blood Urine Nitrate Urine Bilirubin Urine Urobilinogen Ur Leukocyte Esterase Urine RBC Urine WBC Urine Bacteria Ur Culture Indicated? Micro UA Comment U Opiates 300ng/mL cut Ur Oxycodone Screen Urine Methadone Screen Ur Barbiturates Screen U Tricyclic Antidepress Ur Phencyclidine Scrn Ur Amphetamines Screen U Methamphetamines Scrn Ur MDMA Scrn (Ecstasy) U Benzodiazepines Scrn Urine Cocaine Screen U Marijuana (THC) Screen COVID-19 PCR Negative 02/24/20 02/24/20 02/24/20 06:15 06:15 07:29 WBC 12.2 H RBC 4.10 Hgb 12.6 Hct 38.5 MCV 93.7 MCH 30.8 MCHC 32.9 RDW 14.8 Plt Count 279 Neut % (Auto) 60.5 Lymph % (Auto) 27.1 [place] % (Auto) 8.3 Eos % (Auto) 3.1 Baso % (Auto) 1.0 Neut # (Auto) 7400 H Lymph # (Auto) 3300 [place] # (Auto) 1000 H Eos # (Auto) 400 Baso # (Auto) 100 PT INR APTT D-Dimer Sodium 137 Potassium 4.0 Chloride 104 Carbon Dioxide 32 BUN 16 Creatinine 0.61 Estimated GFR > 60.0 BUN/Creatinine Ratio 26.2 H Glucose 150 H Hemoglobin A1c Calcium 8.8 Magnesium Total Bilirubin AST ALT Alkaline Phosphatase Total Creatine Kinase CK-MB (CK-2) CK-MB (CK-2) Rel Index Troponin I < 0.012 Total Protein Albumin Globulin Albumin/Globulin Ratio Triglycerides 144 Cholesterol 202 H LDL Cholesterol, Calc 134 H HDL Cholesterol 39 L Lipase TSH Serum , Qual Urine Color Urine Appearance Urine pH Ur Specific [place] Urine Protein Urine Glucose (UA) Urine Ketones Urine Occult Blood Urine Nitrate Urine Bilirubin Urine Urobilinogen Ur Leukocyte Esterase Urine RBC Urine WBC Urine Bacteria Ur Culture Indicated? Micro UA Comment U Opiates 300ng/mL cut Negative Ur Oxycodone Screen Negative Urine Methadone Screen Negative Ur Barbiturates Screen Negative U Tricyclic Antidepress Negative Ur Phencyclidine Scrn Negative Ur Amphetamines Screen Negative U Methamphetamines Scrn Negative Ur MDMA Scrn (Ecstasy) Negative U Benzodiazepines Scrn Negative Urine Cocaine Screen Negative U Marijuana (THC) Screen Negative COVID-19 PCR 02/24/20 07:29 WBC RBC Hgb Hct MCV MCH MCHC RDW Plt Count Neut % (Auto) Lymph % (Auto) [place] % (Auto) Eos % (Auto) Baso % (Auto) Neut # (Auto) Lymph # (Auto) [place] # (Auto) Eos # (Auto) Baso # (Auto) PT INR APTT D-Dimer Sodium Potassium Chloride Carbon Dioxide BUN Creatinine Estimated GFR BUN/Creatinine Ratio Glucose Hemoglobin A1c Calcium Magnesium Total Bilirubin AST ALT Alkaline Phosphatase Total Creatine Kinase CK-MB (CK-2) CK-MB (CK-2) Rel Index Troponin I Total Protein Albumin Globulin Albumin/Globulin Ratio Triglycerides Cholesterol LDL Cholesterol, Calc HDL Cholesterol Lipase TSH Serum , Qual Urine Color Yellow Urine Appearance Clear Urine pH 5.5 Ur Specific [place] 1.025 Urine Protein Negative Urine Glucose (UA) Negative Urine Ketones Negative Urine Occult Blood Negative Urine Nitrate Negative Urine Bilirubin Negative Urine Urobilinogen 0.2 Ur Leukocyte Esterase Negative Urine RBC None seen Urine WBC None seen Urine Bacteria None seen Ur Culture Indicated? Cult not indicated Micro UA Comment Microscopic normal U Opiates 300ng/mL cut Ur Oxycodone Screen Urine Methadone Screen Ur Barbiturates Screen U Tricyclic Antidepress Ur Phencyclidine Scrn Ur Amphetamines Screen U Methamphetamines Scrn Ur MDMA Scrn (Ecstasy) U Benzodiazepines Scrn Urine Cocaine Screen U Marijuana (THC) Screen COVID-19 PCR Discharge Plan Discharge Plan Patient Disposition: Home Provider Discharge Comment: You were admitted to the hospital after an episode of chest pain. Your stress testing was negative. No medication changes are recommended at this time. If symptoms recur would recommend outpatient holter monitoring. No medication changes are recommended. Please continue to work on your diet and increasing your exercise for your diabetes. Discharge orders & Medications Prescriptions: Continued ProAir HFA 90 mcg/actuation HFA aerosol inhaler 2 puff INHALATION QID PRN (Reason: Pain (Scale Score 1-3)) Qty: 8.5 RF: 3 trazodone 50 mg tablet 25 mg PO BEDTIME PRN (Reason: insomnia) 30 Days Qty: 30 RF: 2 diphenhydramine HCl [Benadryl] 25 mg capsule 25 mg PO .PRN RF: 0 prednisone 20 mg tablet 40 mg PO DAILY Qty: 10 RF: 0 benzonatate [Tessalon Perles] 100 mg capsule 100 mg PO BID-TID PRN (Reason: cough) Qty: 20 RF: 0 codeine-guaifenesin [Guaifenesin AC] 10-100 mg/5 mL liquid 10 ml PO Q4-6H PRN (Reason: cough) Qty: 100 RF: 0 ipratropium-albuterol 0.5 mg-3 mg(2.5 mg base)/3 mL Solution For Nebulization 1 inh Inhalation Q3-4H PRN (Reason: SOB) RF: 0 acetaminophen [Tylenol] 325 mg Capsule 650 mg PO Q4H PRN (Reason: Pain (Scale Score 1-3)) RF: 0 Follow up/Referrals: Nisha Juarez ARNP [Primary Care Provider] - Diet/Activity/Treatments Diet: Diet as Tolerated and Carb-consistent/Diabetic Activity: As tolerated. Visit Report/Discharge Packet Instructions: DI for Atypical Chest Pain, DI for Chest Pain Visit Report Forms: Patient Portal/API, Stroke Signs & Symptoms Discharge Data Primary Care Provider: Nisha Juarez Attending Provider: Max Mercedes Admit Date/Time: 02/24/20 01:29 Discharges patient from system. Discharge Date/Time: 02/24/20 18:40 Quality VTE Deep Vein Thrombosis/Pulmonary Embolism Present on Admission: Yes
[2020-02-24] MEDS: BUTALB/APAP/CAFFEINE 50/325/40 TABLET 1 EACH PO (18:28)
--- NOTE | 2020-02-24 18:49 | PC.NURSE ---
DC note: Kendal Ox3 and situation. VS stable. She denies chest pain. Reports continued GARCIA pain. Dr Beltrán in room to talk with her, DC orders written. Fiorcet given prior to DC. DC teaching given, packet reviewed with patient. Wallet retrieved from safe and given to patient. IV removed from R hand, small pressure drsg applied. Tele removed. Patient dressed self, told me my landlord is picking me up with someone else so they can drive my car home for me. She asked that she wait in her car for them. I wheeled her down to ER entrance & to car in ER parking lot, all belongings & DC paperwork with her.
== END 2020-02-24 18:40 | disposition home or self-care (01) ==
LOC: ED 02-24 00:02 → AC 02-24 01:30
PROVIDERS: Admitting Provider Nurse Practitioner Adult Health; Emergency Provider Emergency Medicine; PCP Registered Nurse; Visit Provider Nurse Practitioner Adult Health
DX: R07.9 Chest pain, unspecified (principal); R42 Dizziness and giddiness; R06.00 Dyspnea, unspecified; J45.909 Unspecified asthma, uncomplicated; F41.9 Anxiety disorder, unspecified; F17.210 Nicotine dependence, cigarettes, uncomplicated; D72.829 Elevated white blood cell count, unspecified; R73.9 Hyperglycemia, unspecified; E66.9 Obesity, unspecified; Z68.35 Body mass index [BMI] 35.0-35.9, adult; Z11.59 Encounter for screening for other viral diseases
CPT/HCPCS: 36415; 71045; 78452; 80048; 80053; 80061; 80305; 81001; 82550; 82962; 83036; 83690; 83735; 84443; 84484; 84703; 85025; 85379; 85610; 85730; 87635; 93005; 93017; 94762; 96372; 99284; G0378; A9502; J1650

== ENCOUNTER 2020-04-23 17:17 | Emergency (ER) | payer OTHER, MEDICAID, SELFPAY ==
[2020-03-02 11:12] VITALS: BMI 42.7
[2020-04-23 17:46] VITALS: BMI 38.7
--- NOTE | 2020-04-23 18:06 | ED_ITS ---
HPI - Extremity Problem General Chief complaint: Extremity Problem,Nontraumatic Stated complaint: BILATERAL FOOT PAIN Time Seen by Provider: 04/23/20 17:59 Source: patient Mode of arrival: Ambulatory Limitations: no limitations History of Present Illness HPI Narrative: 39-year-old female daily smoker with history of diabetes presents with many weeks if not months of burning, stinging and tingling foot pain on the soles of both feet. She denies any injury or overuse. She denies any new shoes. She denies any swelling, redness nor systemic findings such as fever, chills nor nausea or vomiting. She states that her symptoms tend to be worse after a long day on her feet. She denies any exposure to persons known to be positive for COVID. She denies any chest pain or shortness of breath. She is otherwise well and free of complaint MD Complaint: extremity pain Onset (ago): week(s) Pain Consistency: intermittent Location: lower extremity Quality: burning Radiation: none Relieving factors: rest Exacerbating factors: weight bearing Associated symptoms: denies other symptoms Related Data Home Medications Medication Instructions Recorded Confirmed acetaminophen [Tylenol] 650 mg PO Q4H PRN 05/25/18 03/05/20 ipratropium-albuterol 1 inh INHALATION Q3-4H PRN 05/25/18 03/05/20 diphenhydramine HCl 25 mg capsule 25 mg PO .PRN cap 01/01/20 03/05/20 Previous Rx's Medication Instructions Recorded trazodone 50 mg tablet 25 mg PO BEDTIME PRN 30 Days #30 12/09/19 tab albuterol sulfate 90 mcg/actuation 2 puff INHALATION QID PRN #8.5 gram 01/06/20 aerosol inhaler glipizide 5 mg tablet 5 mg PO DAILY 30 Days #30 tab 03/05/20 glucometer and strips #1 ea 03/05/20 sumatriptan succinate 25 mg tablet See Rx Instructions PO .COMPLEX #8 04/17/20 tab ketorolac 10 mg PO Q6H PRN #14 tab 04/23/20 Allergies Allergy/AdvReac Type Severity Reaction Status Date / Time metformin Allergy Severe feels like Verified 03/05/20 08:40 not herself/feels bad aspirin [ASPIRIN] Allergy Unknown Verified 03/05/20 08:09 Penicillins Allergy Unknown Verified 03/05/20 08:09 hydrocodone [HYDROCODONE] AdvReac Unknown head ache Verified 03/05/20 08:09 Review of Systems Constitutional Constitutional: Denies chills, Denies fatigue, Denies fever(s), Denies frequent falls, Denies lethargy and Denies weakness Eyes Eyes: Denies change in vision, Denies eye discharge, Denies irritation and Denies loss of vision ENT Ears, Nose, Mouth, and Throat: Denies change in voice, Denies dizziness, Denies neck pain, Denies sore throat and Denies throat swelling Cardiovascular Cardiovascular: Denies chest pain, Denies irregular heart rhythm, Denies lightheadedness, Denies palpitations, Denies dyspnea, Denies dyspnea on exertion and Denies orthopnea Respiratory Respiratory: Denies cough, Denies dyspnea, Denies dyspnea on exertion and Denies wheezing Gastrointestinal Gastrointestinal: Denies abdominal pain, Denies change in bowel habits, Denies diarrhea, Denies nausea and Denies vomiting Musculoskeletal Musculoskeletal: Denies neck pain and Denies numbness Comments: B/L foot pain, tingling, burning Integumentary/Breasts Skin/Breast: Denies pruritus, Denies erythema, Denies rash and Denies wounds Neurologic Neurologic: Denies behavioral changes, Denies confusion, Denies dizziness, Denies frequent falls, Denies loss of vision, Denies numbness and Denies weakness Psychiatric Psychiatric: Denies anxiety, Denies behavioral changes, Denies confusion, Denies depression, Denies homicidal ideation and Denies suicidal ideation Endocrine Endocrine: Denies fatigue, Denies flushing and Denies palpitations Hematologic/Lymphatic Hematologic/Lymphatic: Denies easy bruising Allergic/Immunologic Allergic/Immunologic: Denies urticaria, Denies throat swelling and Denies wheezing Patient History Medical History Anxiety Asthma Carpal tunnel syndrome Chicken pox (~1984) Fractures Headache Migraine Tennis elbow Wears glasses Surgical History Anesthesia History of appendectomy (~2002) History of oral surgery Family History Father History of heart disease Hypertension Wears hearing aid Brother Hyperlipidemia Mother No significant medical problems Social History household members: none Smoking Status: Current every day smoker alcohol intake: current Smoking Status: Current every day smoker alcohol intake frequency: holidays/special occasions only Substance Use Type: does not use Exam Narrative Exam Narrative: GEN: AOx3 and in mild distress EYES: Pupils are equal, round, and reactive to light and accommodation. Extraoccular muscles are intact bilaterally. There is no subconjunctival hemorrhage or exudate. CHEST: Lungs are clear to auscultation bilaterally and free of wheezes, rales, or rhonchi. Heart rate is regular rhythm, there are no murmurs, clicks, rubs, or gallops. There is no chest wall tenderness. ABD: Abdomen is soft and nontender. There is no guarding or rebound. Bowel sounds are normal in all 4 quadrants. There is no mass or organomegaly. EXT: Full painless ROM of all extremities with no loss of sensation or strength.B/L foot eaxm without significant exam. No swelling, erythema, or reproduceable pain. Small superficial abrasion on R heel. SKIN: Warm, pink, and dry. No erythema or rash Initial Vital Signs Initial Vital Signs: Vital Signs Pulse Rate 88 04/23/20 19:38 Respiratory Rate 14 04/23/20 19:38 Blood Pressure 140/79 04/23/20 19:38 Pulse Oximetry 97 04/23/20 19:38 MDM - Extremity (Nontraumatic) MDM Narrative Medical decision making narrative: Multiple etiologies for patient's symptoms considered including: [Diabetic neuropathy versus plantar fasciitis versus cellulitis versus other] Patient's symptoms improved over duration of stay with above-stated therapies. Findings and discharge diagnosis discussed with patient/family followed by verbalization of understanding Return precautions discussed with patient/family whom verbalize understanding. Discharge Plan Departure Patient Disposition: Home Clinical Impression: Chronic foot pain Qualifiers: Laterality: unspecified laterality Qualified Code(s): M79.673 - Pain in unspecified foot Instructions: DI for Peripheral Neuropathy Activity Restrictions/Additional Instructions: *You have been diagnosed with [bilateral foot pain, likely a consequence of diabetic neuropathy] *What to do: *Take medications as directed: electronically transmitted to [facility] *Follow up with your primary care provider in 2-3 days, call for an appointment. Let them know you were seen in the Emergency Department and that we ask that you be seen in follow up *Return to ER if you should have any new, worsening or concerning symptoms Prescriptions: New ketorolac 10 mg tablet 10 mg PO Q6H PRN (Reason: pain) Qty: 14 RF: 0 No Action ProAir HFA 90 mcg/actuation HFA aerosol inhaler 2 puff INHALATION QID PRN (Reason: Pain (Scale Score 1-3)) Qty: 8.5 RF: 3 sumatriptan succinate 25 mg tablet See Rx Instructions PO .COMPLEX Qty: 8 RF: 0 trazodone 50 mg tablet 25 mg PO BEDTIME PRN (Reason: insomnia) 30 Days Qty: 30 RF: 2 diphenhydramine HCl [Benadryl] 25 mg capsule 25 mg PO .PRN RF: 0 glipizide 5 mg tablet 5 mg PO DAILY 30 Days Qty: 30 RF: 2 (DME) glucometer and strips See Rx Instructions .Route .MEDSUPPLY Qty: 1 RF: 0 ipratropium-albuterol 0.5 mg-3 mg(2.5 mg base)/3 mL Solution For Nebulization 1 inh Inhalation Q3-4H PRN (Reason: SOB) RF: 0 acetaminophen [Tylenol] 325 mg Capsule 650 mg PO Q4H PRN (Reason: Pain (Scale Score 1-3)) RF: 0 Referrals: Nisha Juarez ARNP [Primary Care Provider] -
[2020-04-23 19:38] VITALS: BP 140/79; PULSE 88; RESP 14; O2SAT 97
== END 2020-04-23 19:40 | disposition home or self-care (01) ==
PROVIDERS: Emergency Provider Emergency Medicine; PCP Registered Nurse
DX: M79.672 Pain in left foot (principal); M79.671 Pain in right foot
CPT/HCPCS: 99281

== ENCOUNTER 2020-06-12 13:19 | Emergency (ER) | payer OTHER, MEDICAID, SELFPAY ==
[2020-03-02 11:12] VITALS: BMI 42.7
[2020-06-12 13:30] VITALS: BP 127/75; PULSE 72; RESP 14; TEMP 36.2; O2SAT 99
[2020-06-12] MEDS: TET,DIPH,PERTUSS(ACELL),VAC/PF 0.5 ML SYRINGE IM (13:48)
[2020-06-12] MEDS: IBUPROFEN SUSP 100 MG/5 ML UDC 400 MG PO (14:03)
[2020-06-12] MEDS: BACITRACIN OINT 0.9 GM PCKT 1 APPLIC TOP (14:03)
[2020-06-12] MEDS: ACETAMINOPHEN SUSP 650 MG/20.3 ML UDC PO (14:03)
[2020-06-12] MEDS: LIDO 1%/SOD BICARB 8.4% (10ML) 10 ML SYRINGE INJ (14:05)
--- NOTE | 2020-06-12 14:07 | PC.NURSE ---
Buffered Lidocaine administered by provider.
--- NOTE | 2020-06-12 14:44 | ED.SKABFB ---
HPI - Skin/Abscess/Foreign Bdy <CAROL Oakley - Last Filed: 06/12/20 15:02> General Chief complaint: Skin/Abscess/Foreign Body Stated complaint: wound to thumb left hand Time Seen by Provider: 06/12/20 13:37 Source: patient Mode of arrival: Ambulatory Limitations: no limitations History of Present Illness HPI narrative: This is is a 39-year-old female, smoker, who has no pertinent medical history presents to ED with chief complain of left, dominant hand, proximal phalanx laceration from a can. Patient states she was throwing out garbage is out and was not aware there was a can on the bottom of the trash bag when she picked up. She reports had significant bleeding from the site after the injury and had to call EMS. They recommended for her to drive to ED by POV. Unsure of last tetanus immunizations. Patient reports pain radiating to upper forearm but is able to move affected finger. Related Data Home Medications Medication Instructions Recorded Confirmed acetaminophen [Tylenol] 650 mg PO Q4H PRN 05/25/18 06/05/20 ipratropium-albuterol 1 inh INHALATION Q3-4H PRN 05/25/18 06/05/20 diphenhydramine HCl 25 mg capsule 25 mg PO .PRN cap 01/01/20 06/05/20 Previous Rx's Medication Instructions Recorded trazodone 50 mg tablet 25 mg PO BEDTIME PRN 30 Days #30 12/09/19 tab albuterol sulfate 90 mcg/actuation 2 puff INHALATION QID PRN #8.5 gram 01/06/20 aerosol inhaler glipizide 5 mg tablet 5 mg PO DAILY 30 Days #30 tab 03/05/20 glucometer and strips #1 ea 03/05/20 sumatriptan succinate 25 mg tablet See Rx Instructions PO .COMPLEX #8 04/17/20 tab ketorolac 10 mg PO Q6H PRN #14 tab 04/23/20 Allergies Allergy/AdvReac Type Severity Reaction Status Date / Time metformin Allergy Severe feels like Verified 06/05/20 13:35 not herself/feels bad aspirin [ASPIRIN] Allergy Unknown Verified 06/05/20 13:35 Penicillins Allergy Unknown Verified 06/05/20 13:35 hydrocodone [HYDROCODONE] AdvReac Unknown head ache Verified 06/05/20 13:35 Review of Systems <CAROL Oakley - Last Filed: 06/12/20 15:02> Review of Systems Narrative: General: Denies fever, chills, fatigue, malaise, sweats. Respiratory: Denies dyspnea, cough, wheezing, hemoptysis, sputum. Cardiovascular: Denies chest pain, palpitations, orthopnea, edema. Musculoskeletal: See HPI Skin: See HPI Patient History <CAROL Oakley - Last Filed: 06/12/20 15:02> Medical History Anxiety Asthma Carpal tunnel syndrome Chicken pox (~1984) Fractures Headache Migraine Tennis elbow Wears glasses Surgical History Anesthesia History of appendectomy (~2002) History of oral surgery Family History Father History of heart disease Hypertension Wears hearing aid Brother Hyperlipidemia Mother No significant medical problems Social History household members: none Smoking Status: Current every day smoker alcohol intake: current Smoking Status: Current every day smoker alcohol intake frequency: holidays/special occasions only Substance Use Type: does not use Exam <CAROL Oakley - Last Filed: 06/12/20 15:02> Narrative Exam Narrative: General appearance: well developed, well nourished, in no acute distress. Head: normocephalic, atraumatic, no scalp lesions, non-tender. ENT: Hearing grossly intact. [place] patent. Neck/Thyroid: neck supple, full range of motion, no visible masses or meningeal signs. No JVD, non-tender without lymphadenopathy. Skin: 2 cm superificial transverse laceration on dorsal aspect of left proximal phalanx without active bleeding. Warm and dry and appropriate color for ethnicity. Heart: no clubbing, no cyanosis, no edema. S1 and S2 normal. RRR w/o murmurs, clicks, or bruits. Lungs: Breathing even and unlabored. No stridor. No accessory muscles used. Able to speak in full sentences. Chest: normal shape and expansion. Abdomen: non-obese, non-distended. Neurologic: alert and oriented. Cognitive exam, [employer] and PNS grossly intact on informal exam. Psych: good eye contact, normal affect. Initial Vital Signs Initial Vital Signs: Vital Signs Temperature 97.1 F L 06/12/20 13:30 Pulse Rate 72 06/12/20 13:30 Respiratory Rate 14 06/12/20 13:30 Blood Pressure 127/75 06/12/20 13:30 Pulse Oximetry 99 06/12/20 13:30 Extrem Left upper extremity: hand Details: abnormal to inspection, normal capillary refill, neuromotor exam normal (But tender to palpate with flexion and extension of left thumb) Details: thumb opposition normal, thumb IP flexion normal and thumb ADduction normal, neurosensory exam normal, tendon exam normal, tenderness, vascular exam, normal ROM of fingers, no swelling and laceration (2 cm transverse laceration in proximal phalanx in dorsal aspect on the thumb); no unusual warmth, no crepitus and no foreign bodies <Rich Chawla DO - Last Filed: 06/12/20 17:59> Initial Vital Signs Initial Vital Signs: Vital Signs Temperature 97.1 F L 06/12/20 13:30 Pulse Rate 72 06/12/20 13:30 Respiratory Rate 14 06/12/20 13:30 Blood Pressure 127/75 06/12/20 13:30 Pulse Oximetry 99 06/12/20 13:30 Procedures <CAROL Oakley - Last Filed: 06/12/20 15:02> Orthopedic Splinting/Casting Injury #1: Side: left Upper Extremity Injury Location: finger (thumb) Upper Extremity Immobilizer: finger (other) Post splinting neuro exam: intact Post splinting vascular exam: intact Placed by: Nursing Scores <CAROL Oakley - Last Filed: 06/12/20 15:02> GCS Loyal coma scale eye opening: Spontaneous Loyal coma scale verbal response: Orientated Jack coma scale motor response: Obey commands Jack coma scale total score: 15 Course <CAROL Oakley - Last Filed: 06/12/20 15:02> Orders Ordered: Discontinued Medications Acetaminophen (Acetaminophen Susp 650 Mg/20.3 Ml Udc) 650 mg PO NOW ONE Stop: 06/12/20 13:55 Last Admin: 06/12/20 14:03 Dose: 650 mg Documented by: JOHN Bacitracin (Bacitracin Oint 0.9 Gm Pckt) 1 applic TOP NOW ONE Stop: 06/12/20 13:55 Last Admin: 06/12/20 14:03 Dose: 1 applic Documented by: JOHN Diphtheria/Tetanus/Acell Pertussis (Tet,Diph,Pertuss(Acell),Vac/Pf 0.5 Ml Syringe) 0.5 ml IM .ONCE ONE Stop: 06/12/20 13:43 Last Admin: 06/12/20 13:48 Dose: 0.5 ml Documented by: JOHN Ibuprofen (Ibuprofen Susp 100 Mg/5 Ml Udc) 400 mg PO NOW ONE Stop: 06/12/20 13:55 Last Admin: 06/12/20 14:03 Dose: 400 mg Documented by: JOHN Lidocaine/Sodium Bicarbonate (Lido 1%/Sod Bicarb 8.4% (10ml) 10 Ml Syringe) 10 ml INJ NOW ONE Stop: 06/12/20 13:55 Last Admin: 06/12/20 14:05 Dose: 10 ml Documented by: JOHN Vital Signs Vital signs: Vital Signs - 8 hr 06/12/20 13:30 06/12/20 15:00 Temperature 97.1 F L Pulse Rate 72 76 Respiratory Rate 14 16 Blood Pressure 127/75 136/60 Pulse Oximetry 99 96 <Rich Chawla DO - Last Filed: 06/12/20 17:59> Orders Ordered: Discontinued Medications Acetaminophen (Acetaminophen Susp 650 Mg/20.3 Ml Udc) 650 mg PO NOW ONE Stop: 06/12/20 13:55 Last Admin: 06/12/20 14:03 Dose: 650 mg Documented by: JOHN Bacitracin (Bacitracin Oint 0.9 Gm Pckt) 1 applic TOP NOW ONE Stop: 06/12/20 13:55 Last Admin: 06/12/20 14:03 Dose: 1 applic Documented by: JOHN Diphtheria/Tetanus/Acell Pertussis (Tet,Diph,Pertuss(Acell),Vac/Pf 0.5 Ml Syringe) 0.5 ml IM .ONCE ONE Stop: 06/12/20 13:43 Last Admin: 06/12/20 13:48 Dose: 0.5 ml Documented by: JOHN Ibuprofen (Ibuprofen Susp 100 Mg/5 Ml Udc) 400 mg PO NOW ONE Stop: 06/12/20 13:55 Last Admin: 06/12/20 14:03 Dose: 400 mg Documented by: JOHN Lidocaine/Sodium Bicarbonate (Lido 1%/Sod Bicarb 8.4% (10ml) 10 Ml Syringe) 10 ml INJ NOW ONE Stop: 06/12/20 13:55 Last Admin: 06/12/20 14:05 Dose: 10 ml Documented by: JOHN Vital Signs Vital signs: Vital Signs - 8 hr 06/12/20 13:30 06/12/20 15:00 Temperature 97.1 F L Pulse Rate 72 76 Respiratory Rate 14 16 Blood Pressure 127/75 136/60 Pulse Oximetry 99 96 MDM - Skin/Abscess/Foreign Bdy <CAROL Oakley - Last Filed: 06/12/20 15:02> Differential Diagnosis Differential diagnosis: Likely other (Laceration thumb) Medical Records Attestation: I reviewed the patient's medical records. [facility] Narrative Medical decision making narrative: This is a 39-year-old female who presents to ED with 2 cm transverse laceration of left proximal balance in dorsal aspect without active bleeding at this time. Patient has intact sensation and motor all function distally. Patient reports significant pain, bleeding after the injury and she called EMS. Attempted to clean affected site without local anesthetic medications but patient had little tolerance for this. Patient was medicated with Tylenol and Motrin while in ED. after nerve block on affected thumb, site cleaned with Hibiclens and normal saline thoroughly without gaping the wound. Decided to repair wound with Dermabond and reinforced with Steri-Strips. Affected finger placed on finger splint and advised to use during work to prevent excessive flexion and extension of affected finger and to monitor signs and symptoms for infection. Wound care instruction reviewed with patient along signs and symptoms for infection. Patient verbalized understanding and agreement with the treatment plan. Discharge Plan Departure Patient Disposition: Home Clinical Impression: Laceration of thumb Qualifiers: Encounter type: initial encounter Damage to nail status: without damage Foreign body presence: without foreign body Laterality: left Qualified Code(s): S61.012A - Laceration without foreign body of left thumb without damage to nail, initial encounter Instructions: DI for Laceration Repair-Skin Glue Activity Restrictions/Additional Instructions: You have been diagnosed with [2 cm superficial transverse laceration in left proximal thumb. Laceration repaired with Dermabond and Steri-Strips after deep cleans with Hibiclens solution and saline. Finger splint provided to prevent excessive flexing of affected finger during work for next 5-7 days]. What to do: *Take your medications as directed. My Dermabond DC: Please do not get your wound soaked in the water until the laceration has healed. Keep your dressing intact for next 24 hrs. After then, you could remove your dressing, wash with soap and water. Pat dry with clean papertowel and dress it. Please avoid using oil based ointment, cream, lotion and etc since this may make dermabond lose and remove prematurely. Dermabond will come off in 5-7 days on its own. Do not peel this off or pick on it. You can change dressing as needed and daily. Please monitor for signs and symptoms for infection such as increasing redness, swelling, warmth, pain, fever, purulent discharge. If this occurs, please return to ED or follow up with your primary care physician since your wound may be infected. Please follow up with your primary care provider in 2-3 days for recheck wound. Please keep your wound clean, dry and intact all times. *Return to ED if you have any new, worsening, or concerning symptoms, such as [chest pain, breathing difficulty, unable to tolerate fluids, signs and symptoms of infection as discussed above, or any acute concerns]. Prescriptions: No Action ProAir HFA 90 mcg/actuation HFA aerosol inhaler 2 puff INHALATION QID PRN (Reason: Pain (Scale Score 1-3)) Qty: 8.5 RF: 3 sumatriptan succinate 25 mg tablet See Rx Instructions PO .COMPLEX Qty: 8 RF: 0 trazodone 50 mg tablet 25 mg PO BEDTIME PRN (Reason: insomnia) 30 Days Qty: 30 RF: 2 diphenhydramine HCl [Benadryl] 25 mg capsule 25 mg PO .PRN RF: 0 glipizide 5 mg tablet 5 mg PO DAILY 30 Days Qty: 30 RF: 2 (DME) glucometer and strips See Rx Instructions .Route .MEDSUPPLY Qty: 1 RF: 0 ipratropium-albuterol 0.5 mg-3 mg(2.5 mg base)/3 mL Solution For Nebulization 1 inh Inhalation Q3-4H PRN (Reason: SOB) RF: 0 acetaminophen [Tylenol] 325 mg Capsule 650 mg PO Q4H PRN (Reason: Pain (Scale Score 1-3)) RF: 0 ketorolac 10 mg tablet 10 mg PO Q6H PRN (Reason: pain) Qty: 14 RF: 0 Referrals: Nisha Juarez ARNP [Primary Care Provider] - <Rich Chawla DO - Last Filed: 06/12/20 17:59> Cosign ED Attending Cosignature Attestation: Dr Chawla Co-Sign Statement: I was available for consultation during this patient's emergency department visit. This chart is signed by myself for administrative purposes only. I did not have direct contact with this patient during this visit. They were seen independently by the APC.
[2020-06-12 15:00] VITALS: BP 136/60; PULSE 76; RESP 16; O2SAT 96
== END 2020-06-12 15:01 | disposition home or self-care (01) ==
PROVIDERS: Emergency Provider Nurse Practitioner Family; PCP Registered Nurse
DX: S61.012A Laceration without foreign body of left thumb without damage to nail, initial encounter (principal); W26.8XXA Contact with other sharp object(s), not elsewhere classified, initial encounter; Z23 Encounter for immunization
CPT/HCPCS: 64450; 90471; 99281; 99283; 90715

== ENCOUNTER → 2020-06-13 15:29 | Outpatient (CLI) | payer OTHER, MEDICAID, SELFPAY ==
[2020-03-02 11:12] VITALS: BMI 42.7
--- NOTE | 2020-06-13 15:32 | DI.RAD.S_ITS ---
PROCEDURE: XR FOOT LT MIN 3V INDICATIONS: left foot pain TECHNIQUE: 3 views of the foot were acquired. COMPARISON: None. FINDINGS: Bones: No fractures or dislocations. No suspicious bony lesions. Soft tissues: No tibiotalar joint effusion. Achilles tendon appears normal. IMPRESSION: No acute fracture. No osseous lesion. If symptoms and/or clinical suspicion for pathology persist, further assessment with repeat, or advanced imaging (e.g., CT, MRI, or bone scan) may be helpful for further assessment. Dictated by: Juvenal Mcdaniel M.D. on 06/13/2020 at 15:12 Approved by: Juvenal Mcdaniel M.D. on 06/13/2020 at 15:12
--- NOTE | 2020-06-13 15:32 | DI.RAD.S_ITS ---
PROCEDURE: XR KNEE LT 3V INDICATIONS: left knee pain TECHNIQUE: 3 views of the knee were acquired. COMPARISON: None. FINDINGS: Bones: No fractures or dislocations. No suspicious bony lesions. Soft tissues: No joint effusion. No suspicious soft tissue calcifications. IMPRESSION: No acute fracture. No osseous lesion. If symptoms and/or clinical suspicion for pathology persist, further assessment with repeat, or advanced imaging (e.g., CT, MRI, or bone scan) may be helpful for further assessment. Dictated by: Juvenal Mcdaniel M.D. on 06/13/2020 at 15:11 Approved by: Juvenal Mcdaniel M.D. on 06/13/2020 at 15:11
--- NOTE | 2020-06-13 15:32 | DI.RAD.S_ITS ---
PROCEDURE: XR FOOT RT MIN 3V INDICATIONS: left foot pain TECHNIQUE: 3 views of the foot were acquired. COMPARISON: None. FINDINGS: Bones: No fractures or dislocations. No suspicious bony lesions. Soft tissues: No tibiotalar joint effusion. Achilles tendon appears normal. IMPRESSION: No acute fracture. No osseous lesion. If symptoms and/or clinical suspicion for pathology persist, further assessment with repeat, or advanced imaging (e.g., CT, MRI, or bone scan) may be helpful for further assessment. Dictated by: Juvenal Mcdaniel M.D. on 06/13/2020 at 15:11 Approved by: Juvenal Mcdaniel M.D. on 06/13/2020 at 15:12
--- NOTE | 2020-06-13 15:32 | DI.RAD.S_ITS ---
PROCEDURE: XR ELBOW LT MIN 3V INDICATIONS: L elbow pain TECHNIQUE: 3 views of the elbow were acquired. COMPARISON: [facility], , XR ELBOW LT MIN 3V, 12/09/2019, 11:17. FINDINGS: Bones: No fractures or dislocations. No suspicious bony lesions. Soft tissues: No elbow joint effusion. No suspicious soft tissue calcifications. IMPRESSION: No acute fracture. No osseous lesion. If symptoms and/or clinical suspicion for pathology persist, further assessment with repeat, or advanced imaging (e.g., CT, MRI, or bone scan) may be helpful for further assessment. Dictated by: Juvenal Mcdaniel M.D. on 06/13/2020 at 15:13 Approved by: Juvenal Mcdaniel M.D. on 06/13/2020 at 15:13
== END ==
PROVIDERS: PCP Registered Nurse; Referring Provider Registered Nurse; Visit Provider Registered Nurse
DX: M25.522 Pain in left elbow (principal); M79.672 Pain in left foot; M25.562 Pain in left knee; M79.671 Pain in right foot
CPT/HCPCS: 73080; 73562; 73630

== ENCOUNTER 2020-07-12 20:14 | Emergency (ER) | payer OTHER, MEDICAID, SELFPAY ==
[2020-03-02 11:12] VITALS: BMI 42.7
--- NOTE | 2020-07-12 20:22 | ED_ITS ---
HPI - General Adult General Chief complaint: Recheck/Abnormal Lab/Rx Stated complaint: down to 10 puffs on inhaler, needs refill Time Seen by Provider: 07/12/20 20:17 Source: patient Mode of arrival: Ambulatory Limitations: no limitations History of Present Illness HPI narrative: 39F former smoker (recently quit) presents requesting a refill of her inhaler. She denies any fever, chills, N/V, significant trouble breathing or other complaint. She's been trying to get her PCP to refill, but has been unsuccessful. She denies excessive use. She's had no symptoms and feels well and free of complaint. She states she has about 10-20 puffs left. Relieving factors: none Exacerbating factors: none Associated symptoms: denies other symptoms Treatments prior to arrival: none Related Data Home Medications Medication Instructions Recorded Confirmed acetaminophen [Tylenol] 650 mg PO Q4H PRN 05/25/18 07/06/20 ipratropium-albuterol 1 inh INHALATION Q3-4H PRN 05/25/18 07/06/20 diphenhydramine HCl 25 mg capsule 25 mg PO .PRN cap 01/01/20 07/06/20 Previous Rx's Medication Instructions Recorded trazodone 50 mg tablet 25 mg PO BEDTIME PRN 30 Days #30 12/09/19 tab glipizide 5 mg tablet 5 mg PO DAILY 30 Days #30 tab 03/05/20 sumatriptan succinate 25 mg tablet See Rx Instructions PO .COMPLEX #8 04/17/20 tab norethindrone (contraceptive) 0.35 0.35 mg PO DAILY #84 tab 07/06/20 mg tablet albuterol sulfate 90 mcg/actuation 2 puff INHALATION QID PRN #8.5 gram 07/07/20 aerosol inhaler albuterol sulfate 2 puff INHALATION Q4H PRN #1 each 07/12/20 Allergies Allergy/AdvReac Type Severity Reaction Status Date / Time metformin Allergy Severe feels like Verified 07/12/20 20:28 not herself/feels bad aspirin [ASPIRIN] Allergy Unknown Verified 07/12/20 20:28 Penicillins Allergy Unknown Verified 07/12/20 20:28 hydrocodone [HYDROCODONE] AdvReac Unknown head ache Verified 07/12/20 20:28 Review of Systems Constitutional Constitutional: Denies chills, Denies fatigue, Denies fever(s), Denies frequent falls, Denies lethargy and Denies weakness Eyes Eyes: Denies change in vision, Denies eye discharge, Denies irritation and Denies loss of vision ENT Ears, Nose, Mouth, and Throat: Denies change in voice, Denies dizziness, Denies neck pain, Denies sore throat and Denies throat swelling Cardiovascular Cardiovascular: Denies chest pain, Denies irregular heart rhythm, Denies lightheadedness, Denies palpitations, Denies dyspnea, Denies dyspnea on exertion and Denies orthopnea Respiratory Respiratory: Denies cough, Denies dyspnea, Denies dyspnea on exertion and Denies wheezing Gastrointestinal Gastrointestinal: Denies abdominal pain, Denies change in bowel habits, Denies diarrhea, Denies nausea and Denies vomiting Musculoskeletal Musculoskeletal: Denies neck pain and Denies numbness Integumentary/Breasts Skin/Breast: Denies pruritus, Denies erythema, Denies rash and Denies wounds Neurologic Neurologic: Denies behavioral changes, Denies confusion, Denies dizziness, Denies frequent falls, Denies loss of vision, Denies numbness and Denies weakness Psychiatric Psychiatric: Denies anxiety, Denies behavioral changes, Denies confusion, Denies depression, Denies homicidal ideation and Denies suicidal ideation Endocrine Endocrine: Denies fatigue, Denies flushing and Denies palpitations Hematologic/Lymphatic Hematologic/Lymphatic: Denies easy bruising Allergic/Immunologic Allergic/Immunologic: Denies urticaria, Denies throat swelling and Denies wheezing Patient History Medical History Anxiety Asthma Carpal tunnel syndrome Chicken pox (~1984) Fractures Headache Migraine Tennis elbow Wears glasses Surgical History Anesthesia History of appendectomy (~2002) History of oral surgery Family History Father History of heart disease Hypertension Wears hearing aid Brother Hyperlipidemia Mother No significant medical problems Social History household members: none Smoking Status: Current every day smoker alcohol intake: current Smoking Status: Current every day smoker alcohol intake frequency: holidays/special occasions only Substance Use Type: does not use Exam Narrative Exam Narrative: GEN: AOx3 and in mild distress EYES: Pupils are equal, round, and reactive to light and accommodation. Extraoccular muscles are intact bilaterally. There is no subconjunctival hemorrhage or exudate. CHEST: Lungs are clear to auscultation bilaterally and free of wheezes, rales, or rhonchi. Heart rate is regular rhythm, there are no murmurs, clicks, rubs, or gallops. There is no chest wall tenderness. ABD: Abdomen is soft and nontender. There is no guarding or rebound. Bowel so unds are normal in all 4 quadrants. There is no mass or organomegaly. EXT: Full painless ROM of all extremities with no loss of sensation or strength. SKIN: Warm, pink, and dry. No erythema or rash Initial Vital Signs Initial Vital Signs: Vital Signs Temperature 98.6 F 07/12/20 20:25 Pulse Rate 96 H 07/12/20 20:25 Respiratory Rate 22 07/12/20 20:25 Blood Pressure 143/85 H 07/12/20 20:25 Pulse Oximetry 98 07/12/20 20:25 Course Vital Signs Vital signs: Vital Signs - 8 hr 07/12/20 20:25 Temperature 98.6 F Pulse Rate 96 H Respiratory Rate 22 Blood Pressure 143/85 H Pulse Oximetry 98 Discharge Plan Departure Patient Disposition: Home Clinical Impression: Asthma Qualifiers: Asthma severity: mild Asthma persistence: intermittent Asthma complication type: uncomplicated Qualified Code(s): J45.20 - Mild intermittent asthma, uncomplicated Instructions: Asthma -- Adult Activity Restrictions/Additional Instructions: *You have been diagnosed with [medication refill] *What to do: *Take medications as directed *Follow up with your primary care provider in 2-3 days, call for an appointment. Let them know you were seen in the Emergency Department and that we ask that you be seen in follow up *Return to ER if you should have any new, worsening or concerning symptoms, such as [increasing trouble breathing, fever greater than 101, other bothersome symptoms] Prescriptions: New albuterol sulfate 90 mcg/actuation aerosol powdr breath activated 2 puff INHALATION Q4H PRN (Reason: shortness of breath or wheezing) Qty: 1 RF: 0 No Action sumatriptan succinate 25 mg tablet See Rx Instructions PO .COMPLEX Qty: 8 RF: 0 ProAir HFA 90 mcg/actuation HFA aerosol inhaler 2 puff INHALATION QID PRN (Reason: Pain (Scale Score 1-3)) Qty: 8.5 RF: 2 trazodone 50 mg tablet 25 mg PO BEDTIME PRN (Reason: insomnia) 30 Days Qty: 30 RF: 2 diphenhydramine HCl [Benadryl] 25 mg capsule 25 mg PO .PRN RF: 0 glipizide 5 mg tablet 5 mg PO DAILY 30 Days Qty: 30 RF: 2 norethindrone (contraceptive) 0.35 mg tablet 0.35 mg PO DAILY Qty: 84 RF: 4 ipratropium-albuterol 0.5 mg-3 mg(2.5 mg base)/3 mL Solution For Nebulization 1 inh Inhalation Q3-4H PRN (Reason: SOB) RF: 0 acetaminophen [Tylenol] 325 mg Capsule 650 mg PO Q4H PRN (Reason: Pain (Scale Score 1-3)) RF: 0 Referrals: Nisha Juarez ARNP [Primary Care Provider] -
[2020-07-12 20:25] VITALS: BP 143/85; PULSE 96; RESP 22; TEMP 37; O2SAT 98
== END 2020-07-12 20:36 | disposition home or self-care (01) ==
PROVIDERS: Emergency Provider Emergency Medicine; PCP Registered Nurse
DX: J45.20 Mild intermittent asthma, uncomplicated (principal)
CPT/HCPCS: 99281

== ENCOUNTER 2020-07-21 06:27 | Emergency (ER) | payer OTHER, MEDICAID, SELFPAY ==
[2020-03-02 11:12] VITALS: BMI 42.7
[2020-07-21 06:30] VITALS: BP 148/69; PULSE 85; RESP 16; TEMP 36.4; O2SAT 96; BMI 43.5
--- NOTE | 2020-07-21 06:35 | ED.HA ---
HPI - Headache <Harley Mahmood - Last Filed: 07/25/20 08:27> General Chief Complaint: Headache Stated Complaint: very bad headache Time Seen by Provider: 07/21/20 06:35 Source: patient Mode of arrival: Ambulatory Limitations: no limitations History of Present Illness HPI Narrative: 39-year-old female smoker with history of asthma, seasonal allergies, hyperlipidemia, PCOS, and migraines presents with a chief complaint of a severe migraine that has been worsening since yesterday. She states that it has been gradually worsening and is her entire head and feels like it is squeezing. She states it is worse with bright lights, loud noises and exertion. She has had some nausea, vomiting and a loose stool. She states at its maximal intensity was 8/10 and is currently 7/10. She denies any change in her medications, recent injury or fever. She denies any pain in her neck and takes no blood thinners. She denies other neurologic symptoms such as blurred vision, trouble with speech or numbness, tingling or weakness. She denies recent travel or exposure to persons with known or suspected COVID MD Complaint: migraine Onset (ago): hour(s) Onset description: gradual Location: diffuse Severity: severe Severity scale (1-10): 8 Quality: aching and throbbing Relieving factors: dark room Exacerbating factors: exertion, light and noise Associated symptoms: nausea and vomiting Treatments prior to arrival: migraine medication Related Data Home Medications Medication Instructions Recorded Confirmed diphenhydramine HCl 25 mg capsule 25 mg PO .PRN cap 01/01/20 07/17/20 acetaminophen 500 mg capsule 1,000 mg PO Q6H PRN 07/17/20 07/17/20 albuterol sulfate 90 mcg/actuation 1 puff INHALATION ONCE 07/17/20 07/17/20 aerosol inhaler albuterol sulfate 90 mcg/actuation 2 puff INHALATION Q6H PRN 07/17/20 07/17/20 aerosol inhaler trazodone 50 mg tablet 75 mg PO BEDTIME PRN tab 07/17/20 Previous Rx's Medication Instructions Recorded sumatriptan succinate 25 mg tablet See Rx Instructions PO .COMPLEX #8 04/17/20 tab norethindrone (contraceptive) 0.35 0.35 mg PO DAILY #84 tab 03/22/21 mg tablet ipratropium 0.5 mg-albuterol 3 mg 3 ml INHALATION Q3-4H PRN #180 ml 07/13/20 (2.5 mg base)/3 mL nebulization soln naproxen 500 mg tablet 500 mg PO BID PRN 30 Days #60 tab 07/17/20 Allergies Allergy/AdvReac Type Severity Reaction Status Date / Time metformin Allergy Severe feels like Verified 07/12/20 20:28 not herself/feels bad Penicillins Allergy Unknown Verified 07/12/20 20:28 aspirin [ASPIRIN] AdvReac Mild Verified 07/21/20 07:05 hydrocodone [HYDROCODONE] AdvReac Unknown head ache Verified 07/12/20 20:28 Review of Systems <Harley Mahmood, - Last Filed: 07/25/20 08:27> Constitutional Constitutional: Denies chills, Denies fatigue, Denies fever(s), Denies frequent falls, Reports headache(s), Denies lethargy and Denies weakness Eyes Eyes: Denies change in vision, Denies eye discharge, Denies irritation and Denies loss of vision ENT Ears, Nose, Mouth, and Throat: Denies change in voice, Denies dizziness, Reports headache(s), Denies neck pain, Denies sore throat and Denies throat swelling Cardiovascular Cardiovascular: Denies chest pain, Denies irregular heart rhythm, Denies lightheadedness, Denies palpitations, Denies dyspnea, Denies dyspnea on exertion and Denies orthopnea Respiratory Respiratory: Denies cough, Denies dyspnea, Denies dyspnea on exertion and Denies wheezing Gastrointestinal Gastrointestinal: Denies abdominal pain, Denies change in bowel habits, Denies diarrhea, Reports nausea and Reports vomiting Musculoskeletal Musculoskeletal: Denies neck pain and Denies numbness Integumentary/Breasts Skin/Breast: Denies pruritus, Denies erythema, Denies rash and Denies wounds Neurologic Neurologic: Denies behavioral changes, Denies confusion, Denies dizziness, Denies frequent falls, Reports headache(s), Denies loss of vision, Denies numbness and Denies weakness Psychiatric Psychiatric: Denies anxiety, Denies behavioral changes, Denies confusion, Denies depression, Denies homicidal ideation and Denies suicidal ideation Endocrine Endocrine: Denies fatigue, Denies flushing and Denies palpitations Hematologic/Lymphatic Hematologic/Lymphatic: Denies easy bruising Allergic/Immunologic Allergic/Immunologic: Denies urticaria, Denies throat swelling and Denies wheezing Patient History <Harley Mahmood DO - Last Filed: 07/25/20 08:27> Medical History Anxiety Asthma Carpal tunnel syndrome Chicken pox (~1984) Fractures Headache Migraine Tennis elbow Wears glasses Surgical History Anesthesia History of appendectomy (~2002) History of oral surgery Family History Father History of heart disease Hypertension Wears hearing aid Brother Hyperlipidemia Mother No significant medical problems Social History household members: none Smoking Status: Current every day smoker alcohol intake: current Smoking Status: Current every day smoker alcohol intake frequency: holidays/special occasions only Substance Use Type: does not use Exam <Harley Mahmood DO - Last Filed: 07/25/20 08:27> Narrative Exam Narrative: GENERAL: [39] year old patient appears stated age. Well-nourished, well-developed patient, in mild distress. Obviously uncomfortable, sitting in a dark room with her mejía up HEAD: Atraumatic. Normocephalic. EYES: Pupils equal round and reactive. Extraocular motions intact. No scleral icterus. No injection or drainage. ENT: Nose without bleeding, purulent drainage. Throat without erythema, tonsillar hypertrophy or exudate. Airway patent. NECK: Trachea midline. Non tender. No meningeal signs CARDIOVASCULAR: Regular rate and rhythm without murmurs, gallops, or rubs. RESPIRATORY: Clear to auscultation. Breath sounds equal bilaterally. No wheezes, rales, or rhonchi. GASTROINTESTINAL: Abdomen soft, non-tender, nondistended. EXTREMITIES: No edema or joint tenderness. BACK: Nontender without deformity or crepitance. No flank tenderness. NEURO: AOx3. Cranial nerves 2-12 grossly intact. No extremity numbness, weakness, tingling or ataxia SKIN: No rash or erythema of visible areas Initial Vital Signs Initial Vital Signs: Vital Signs Temperature 97.5 F L 07/21/20 06:30 Pulse Rate 85 04/06/21 06:30 Respiratory Rate 16 07/21/20 06:30 Blood Pressure 148/69 H 07/21/20 06:30 Pulse Oximetry 96 07/21/20 06:30 <Francesca Rush DO - Last Filed: 07/21/20 10:57> Initial Vital Signs Initial Vital Signs: Vital Signs Temperature 97.5 F L 07/21/20 06:30 Pulse Rate 85 07/21/20 06:30 Respiratory Rate 16 07/21/20 06:30 Blood Pressure 148/69 H 07/21/20 06:30 Pulse Oximetry 96 07/21/20 06:30 Course <Harley Mahmood DO - Last Filed: 07/25/20 08:27> Orders Ordered: Discontinued Medications Acetaminophen (Acetaminophen 325 Mg Tablet) 975 mg PO NOW ONE Stop: 07/21/20 09:00 Last Admin: 07/21/20 09:04 Dose: 975 mg Documented by: ERASMO Diphenhydramine HCl (Diphenhydramine 50 Mg/Ml Vial) 25 mg IV NOW ONE Stop: 07/21/20 06:41 Last Admin: 07/21/20 06:56 Dose: 25 mg Documented by: VALERIE Sodium Chloride (Normal Saline 0.9%) 1,000 mls @ 1,000 mls/hr IV BOLUS ONE Stop: 07/21/20 07:39 Last Infusion: 07/21/20 08:59 Dose: 0 mls/hr Documented by: Admin: 07/21/20 06:55 Dose: 1,000 mls/hr Documented by: VALERIE Ketorolac Tromethamine (Ketorolac 60 Mg/2 Ml Vial) 15 mg IV NOW ONE Stop: 07/21/20 06:41 Last Admin: 07/21/20 06:56 Dose: 15 mg Documented by: VALERIE Metoclopramide HCl (Metoclopramide 10 Mg/2 Ml Inj) 10 mg IV NOW ONE Stop: 07/21/20 06:41 Last Admin: 07/21/20 06:55 Dose: 10 mg Documented by: VALERIE Vital Signs Vital signs: Vital Signs - 8 hr 07/21/20 06:30 07/21/20 08:33 07/21/20 08:54 Temperature 97.5 F L Pulse Rate 85 81 77 Respiratory Rate 16 Blood Pressure 148/69 H 132/79 Pulse Oximetry 96 98 97 <Francesca Saavedragustabo, DO - Last Filed: 07/21/20 10:57> Orders Ordered: Discontinued Medications Acetaminophen (Acetaminophen 325 Mg Tablet) 975 mg PO NOW ONE Stop: 07/21/20 09:00 Last Admin: 07/21/20 09:04 Dose: 975 mg Documented by: ERASMO Diphenhydramine HCl (Diphenhydramine 50 Mg/Ml Vial) 25 mg IV NOW ONE Stop: 07/21/20 06:41 Last Admin: 07/21/20 06:56 Dose: 25 mg Documented by: VALERIE Sodium Chloride (Normal Saline 0.9%) 1,000 mls @ 1,000 mls/hr IV BOLUS ONE Stop: 07/21/20 07:39 Last Infusion: 07/21/20 08:59 Dose: 0 mls/hr Documented by: Admin: 07/21/20 06:55 Dose: 1,000 mls/hr Documented by: VALERIE Ketorolac Tromethamine (Ketorolac 60 Mg/2 Ml Vial) 15 mg IV NOW ONE Stop: 07/21/20 06:41 Last Admin: 07/21/20 06:56 Dose: 15 mg Documented by: VALERIE Metoclopramide HCl (Metoclopramide 10 Mg/2 Ml Inj) 10 mg IV NOW ONE Stop: 07/21/20 06:41 Last Admin: 07/21/20 06:55 Dose: 10 mg Documented by: VALERIE Reevaluation(s) Reevaluation #1: Patient currently sleeping after medications. Will recheck when more awake. Patient signed out by Dr. Mahmood for suspected migraine headache. Patient received several medications and plan for recheck. Time: 08:22 Reevaluation #2: Patient states 2/10, which is her normal state after a migraine. She states she feels much better at this time. She did ask if she can take trazodone or Benadryl with her sumatriptan. I reviewed the trazodone would likely not be a good combination she has increased risk for serotonin syndrome. Benadryl may be more likely but would increase sedation. Patient has no other current questions or concerns at this time. Time: 09:17 Vital Signs Vital signs: Vital Signs - 8 hr 07/21/20 06:30 07/21/20 08:33 07/21/20 08:54 Temperature 97.5 F L Pulse Rate 85 81 77 Respiratory Rate 16 Blood Pressure 148/69 H 132/79 Pulse Oximetry 96 98 97 Discharge Plan Departure Patient Disposition: Home Clinical Impression: Headache Instructions: DI for Migraine Activity Restrictions/Additional Instructions: Follow up with your physician in the next 1-2 days if no improvement. You may continue your home medications as prescribed. Use caution taking trazadone and sumatriptan closely together. I would recommend avoiding this combination. Benadryl can potentially cause you to be very sleepy symptoms but may be less likely. I would space these medications out. Make sure you are staying hydrated and try to get plenty of sleep. Please return for fevers greater 100.4 F, rapidly worsening or severe headache, persistent vomiting, loss of vision, new numbness, weakness or difficulty with movement, new or changing symptoms or other new or concerning symptoms. Prescriptions: No Action sumatriptan succinate 25 mg tablet See Rx Instructions PO .COMPLEX Qty: 8 RF: 0 ipratropium-albuterol 0.5 mg-3 mg(2.5 mg base)/3 mL solution for nebulization 3 ml Inhalation Q3-4H PRN (Reason: SOB) Qty: 180 RF: 3 acetaminophen 500 mg capsule 1,000 mg PO Q6H PRNRF: 0 albuterol sulfate 90 mcg/actuation HFA aerosol inhaler 1 puff inhalation ONCE RF: 0 albuterol sulfate 90 mcg/actuation HFA aerosol inhaler 2 puff inhalation Q6H PRNRF: 0 naproxen 500 mg tablet 500 mg PO BID PRN (Reason: pain) 30 Days Qty: 60 RF: 0 trazodone 50 mg tablet 75 mg PO BEDTIME PRN (Reason: insomnia) RF: 0 diphenhydramine HCl [Benadryl] 25 mg capsule 25 mg PO .PRN RF: 0 norethindrone (contraceptive) 0.35 mg tablet 0.35 mg PO DAILY Qty: 84 RF: 4 Referrals: Nisha Juarez ARNP [Primary Care Provider] -
[2020-07-21] MEDS: SODIUM CHLORIDE 0.9% 1,000 ML 1000 ML IV (06:55)
[2020-07-21] MEDS: METOCLOPRAMIDE 10 MG/2 ML INJ IV (06:55)
[2020-07-21] MEDS: KETOROLAC 60 MG/2 ML VIAL 15 MG IV (06:56)
[2020-07-21] MEDS: diphenhydrAMINE 50 MG/ML VIAL 25 MG IV (06:56)
[2020-07-21 08:33] VITALS: PULSE 81; O2SAT 98
[2020-07-21 08:54] VITALS: BP 132/79; PULSE 77; O2SAT 97
[2020-07-21] MEDS: ACETAMINOPHEN 325 MG TABLET 975 MG PO (09:04)
== END 2020-07-21 09:20 | disposition home or self-care (01) ==
PROVIDERS: Emergency Provider Emergency Medicine; PCP Registered Nurse
DX: R51.9 Headache, unspecified (principal)
CPT/HCPCS: 96361; 96374; 96375; 99284; J1200; J1885; J2765

== ENCOUNTER 2020-08-13 22:25 | Emergency (ER) | payer OTHER, MEDICAID, SELFPAY ==
[2020-03-02 11:12] VITALS: BMI 42.7
[2020-08-13 22:34] VITALS: BP 160/87; RESP 20; TEMP 37; O2SAT 100
--- NOTE | 2020-08-13 23:02 | PC.NURSE ---
Patient was here in May for a thumb laceration. She was told by the EMS that she needed her wound to be cleaned out and given sutures. She stated the doctor did not clean her wound out and did not give her sutures. Now she has pain all up her hand and wrist. The wound is well healed and is not red, swollen, or deformed. She take apap and ibuprofen for pain.
--- NOTE | 2020-08-13 23:07 | ED.EXTPRO ---
HPI - Extremity Problem General Chief complaint: Extremity Problem,Nontraumatic Stated complaint: left thumb pain Time Seen by Provider: 08/13/20 22:51 Source: patient Mode of arrival: Ambulatory Limitations: no limitations History of Present Illness HPI Narrative: Patient is a 40-year-old female who presents with ongoing left thumb pain since May. Here she says that she has worn a brace on her left thumb for more than 6 weeks she gets sharp shooting pain up her some worse at night. She has been taking Tylenol ibuprofen for it she is not here for pain medicine but is wondering what is going on. She seen her primary care provider numerous times for it she has referral to a specialist in 4 days. She spoke with 1 of her friends who is in the emergency room physician and told her to come to the ED tonight. Related Data Home Medications Medication Instructions Recorded Confirmed diphenhydramine HCl 25 mg capsule 25 mg PO .PRN cap 01/01/20 07/17/20 acetaminophen 500 mg capsule 1,000 mg PO Q6H PRN 07/17/20 07/17/20 albuterol sulfate 90 mcg/actuation 1 puff INHALATION ONCE 07/17/20 07/17/20 aerosol inhaler albuterol sulfate 90 mcg/actuation 2 puff INHALATION Q6H PRN 07/17/20 07/17/20 aerosol inhaler trazodone 50 mg tablet 75 mg PO BEDTIME PRN tab 07/17/20 Previous Rx's Medication Instructions Recorded sumatriptan succinate 25 mg tablet See Rx Instructions PO .COMPLEX #8 04/17/20 tab norethindrone (contraceptive) 0.35 0.35 mg PO DAILY #84 tab 07/06/20 mg tablet ipratropium 0.5 mg-albuterol 3 mg 3 ml INHALATION Q3-4H PRN #180 ml 07/13/20 (2.5 mg base)/3 mL nebulization soln naproxen 500 mg tablet 500 mg PO BID PRN 30 Days #60 tab 07/17/20 Allergies Allergy/AdvReac Type Severity Reaction Status Date / Time metformin Allergy Severe feels like Verified 07/12/20 20:28 not herself/feels bad Penicillins Allergy Unknown Verified 07/12/20 20:28 aspirin [ASPIRIN] AdvReac Mild Verified 07/21/20 07:05 hydrocodone [HYDROCODONE] AdvReac Unknown head ache Verified 07/12/20 20:28 Review of Systems Review of Systems Narrative: GENERAL: Denies chills,fever HEENT: Denies throat pain RESPIRATORY: Denies dyspnea, cough, wheezing CARDIOVASCULAR: Denies chest pain, palpitations GASTROINTESTINAL: Denies nausea, vomiting MUSCULOSKELETAL: See HPI SKIN: No rash, no laceration, no pruritus NEUROLOGIC:= sharp shooting pain Denies weakness, dizziness, headache, numbness 8 point review of systems is negative except for those stated above and HPI Patient History Medical History Anxiety Asthma Carpal tunnel syndrome Chicken pox (~1984) Fractures Headache Migraine Tennis elbow Wears glasses Surgical History Anesthesia History of appendectomy (~2002) History of oral surgery Family History Father History of heart disease Hypertension Wears hearing aid Brother Hyperlipidemia Mother No significant medical problems Social History household members: none Smoking Status: Current every day smoker alcohol intake: current Smoking Status: Current every day smoker tobacco type: cigarettes alcohol intake frequency: holidays/special occasions only Substance Use Type: does not use Exam Initial Vital Signs Initial Vital Signs: Vital Signs Temperature 98.6 F 08/13/20 22:34 Respiratory Rate 20 08/13/20 22:34 Blood Pressure 160/87 H 08/13/20 22:34 Pulse Oximetry 100 08/13/20 22:34 GENERAL: Well-appearing, well-nourished and in no acute distress. CARDIOVASCULAR: peripheral pulses in tact, cap refill <2 sec RESPIRATORY: No respiratory distress, speaks in full sentences without difficulty EXTREMITIES: Normal range of motion, no clubbing or edema. Neurovascularly intact Unwilling or unable to fully flex and extend thumb she gets extreme pain with any movement cap refill less than 2 sec NEUROLOGICAL: Cranial nerves II through XII grossly intact. Normal gait and speech. SKIN: Scar noted on left thumb Course Vital Signs Vital signs: Vital Signs - 8 hr 08/13/20 22:34 Temperature 98.6 F Respiratory Rate 20 Blood Pressure 160/87 H Pulse Oximetry 100 MDM - Extremity (Nontraumatic) MDM Narrative Medical decision making narrative: The patient is extremely frustrated she continues to have pain, she is left-handed dominant. I have explained that this is likely nerve pain. Nerves are un repairable. I also discussed with her that she likely needs an outpatient MRI and possible physical therapy. She has had her left thumb and hand in a splint for more than 6 weeks is also likely fairly weak. I have offered her pain medicine however she does not want any pain medicine she is frustrated now being in the emergency department because I am unable to provide her with any new information for help. Discharge Plan Departure Patient Disposition: Home Clinical Impression: Chronic pain of left thumb, Neuropathic pain Instructions: Neuropathic Pain Activity Restrictions/Additional Instructions: *You have been diagnosed with chronic left thumb pain, neuropathic pain *What to do: At this time there is not much to do in the emergency department. However I do believe he needs physical therapy possible MRI and orthopedic referral. *Continue to take medications as directed *Follow up with your primary care provider in 2-3 days *Return to ER if you should have any new, worsening or concerning symptoms Prescriptions: No Action sumatriptan succinate 25 mg tablet See Rx Instructions PO .COMPLEX Qty: 8 RF: 0 ipratropium-albuterol 0.5 mg-3 mg(2.5 mg base)/3 mL solution for nebulization 3 ml Inhalation Q3-4H PRN (Reason: SOB) Qty: 180 RF: 3 acetaminophen 500 mg capsule 1,000 mg PO Q6H PRNRF: 0 albuterol sulfate 90 mcg/actuation HFA aerosol inhaler 1 puff inhalation ONCE RF: 0 albuterol sulfate 90 mcg/actuation HFA aerosol inhaler 2 puff inhalation Q6H PRNRF: 0 naproxen 500 mg tablet 500 mg PO BID PRN (Reason: pain) 30 Days Qty: 60 RF: 0 trazodone 50 mg tablet 75 mg PO BEDTIME PRN (Reason: insomnia) RF: 0 diphenhydramine HCl [Benadryl] 25 mg capsule 25 mg PO .PRN RF: 0 norethindrone (contraceptive) 0.35 mg tablet 0.35 mg PO DAILY Qty: 84 RF: 4 Referrals: Nisha Juarez ARNP [Primary Care Provider] -
== END 2020-08-13 23:48 | disposition home or self-care (01) ==
PROVIDERS: Emergency Provider Emergency Medicine; PCP Registered Nurse
DX: M79.645 Pain in left finger(s) (principal); M79.2 Neuralgia and neuritis, unspecified
CPT/HCPCS: 99281

== ENCOUNTER 2020-10-16 18:11 | Emergency (ER) | payer OTHER, MEDICAID, SELFPAY ==
[2020-03-02 11:12] VITALS: BMI 42.7
[2020-10-16 18:33] VITALS: BP 170/76; PULSE 96; RESP 18; TEMP 37.7; O2SAT 97; BMI 38.0
--- NOTE | 2020-10-16 18:39 | DI.RAD.S_ITS ---
PROCEDURE: XR TOE LT MIN 2V INDICATIONS: fell TECHNIQUE: Three views of the great toe acquired. COMPARISON: None. FINDINGS: Bones: No fractures or dislocations. No suspicious bony lesions. Soft tissues: No suspicious soft tissue densities. IMPRESSION: 1. No fracture or dislocation. Dictated by: Ji Lopez M.D. on 10/16/2020 at 20:49 Approved by: Ji Lopez M.D. on 10/16/2020 at 20:50
--- NOTE | 2020-10-16 18:40 | DI.RAD.S_ITS ---
PROCEDURE: XR SHOULDER LT MIN 2V INDICATIONS: fall TECHNIQUE: 3 views of the shoulder were acquired. COMPARISON: None. FINDINGS: Bones: No fractures or dislocations. No suspicious bony lesions. Visualized ribs appear intact. Soft tissues: No suspicious soft tissue calcifications. IMPRESSION: 1. No fracture or dislocation. Dictated by: Ji Lopez M.D. on 10/16/2020 at 20:48 Approved by: Ji Lopez M.D. on 10/16/2020 at 20:49
--- NOTE | 2020-10-17 17:56 | ED_ITS ---
HPI - Extremity Injury (Upper) General Chief Complaint: Extremity Injury, Upper Stated Complaint: Tripped, Left Toe and Shoulder Pain Time Seen by Provider: 10/16/20 22:23 Source: patient Mode of arrival: Family Vehicle Limitations: no limitations History of Present Illness HPI narrative: 40-year-old female former smoker with noncontributory medical history presents with multiple injuries suffered as a consequence of a ground level fall just prior to arrival. She was walking with sandals and thinks they got caught on something on the ground and she fell forward striking her left shoulder and bending her toe backwards. She denies any head neck or back pain. She has full recall. She denies any chest pain or shortness of breath. Her left shoulder hurts anteriorly and is sharp and stabbing in nature. It is worse with range of motion and improves with rest. She denies numbness, tingling or weakness. Her great toe has some mild swelling and hurts when she walks and flexes at the joint. She denies any ankle knee or hip pain. She denies any numbness, tingling or weakness. She denies any prodromal symptoms contributing to the fall and last, stating it was purely a clutzy moment Related Data Home Medications Medication Instructions Recorded Confirmed diphenhydramine HCl 25 mg capsule 25 mg PO .PRN cap 01/01/20 09/21/20 (Benadryl) acetaminophen 500 mg capsule 1,000 mg PO Q6H PRN 07/17/20 09/21/20 Previous Rx's Medication Instructions Recorded norethindrone (contraceptive) 0.35 0.35 mg PO DAILY #84 tab 07/06/20 mg tablet trazodone 50 mg tablet 75 mg PO BEDTIME PRN #135 tab 08/27/20 albuterol sulfate 90 mcg/actuation 2 puff INHALATION Q3-4H PRN #18 g 09/21/20 aerosol inhaler (ProAir HFA) sumatriptan succinate 25 mg tablet See Rx Instructions PO .COMPLEX #8 09/21/20 tab Allergies Allergy/AdvReac Type Severity Reaction Status Date / Time metformin Allergy Severe feels like Verified 10/16/20 18:33 not herself/feels bad Penicillins Allergy Unknown Verified 10/16/20 18:33 aspirin [ASPIRIN] AdvReac Mild Verified 10/16/20 18:33 hydrocodone [HYDROCODONE] AdvReac Unknown head ache Verified 10/16/20 18:33 Review of Systems Review of Systems Narrative: GENERAL: Denies chills, fatigue, malaise, fever, sweats. HEENT: Denies sinus pain, ear pain, sore throat, difficulty swallowing, dizziness. RESPIRATORY: Denies dyspnea, cough, wheezing, hemoptysis, sputum. CARDIOVASCULAR: Denies chest pain, palpitations, orthopnea, edema, GASTROINTESTINAL: Denies nausea, vomiting, abdominal pain, diarrhea, constipation, melena. : Denies dysuria, frequency, incontinence, hematuria, urinary retention. MUSCULOSKELETAL: see HPI SKIN: Denies rash, skin lesions, or other NEUROLOGIC: Denies weakness, headache, numbness, change in speech, confusion, seizures, incoordination. PSYCHIATRIC: No concerning psychosocial issues. 12 point review of systems is negative except for those stated above Patient History Medical History Anxiety Asthma Carpal tunnel syndrome Chicken pox (~1984) Finger pain, left Fractures Headache Migraine Tennis elbow Wears glasses Surgical History Anesthesia History of appendectomy (~2002) History of oral surgery Family History Father History of heart disease Hypertension Wears hearing aid Brother Hyperlipidemia Mother No significant medical problems Social History household members: none Smoking Status: Former smoker alcohol intake: current Smoking Status: Former smoker tobacco type: cigarettes alcohol intake frequency: holidays/special occasions only Substance Use Type: does not use Exam Narrative Exam Narrative: GENERAL: [[age]] year old patient appears stated age. Well- developed patient, in mild distress. obviously in pain, self splinting her left shoulder with forearm draped across her abdomen HEAD: Atraumatic. Normocephalic. GCS 15 EYES: Pupils equal round and reactive. Extraocular motions intact. No scleral icterus. No injection or drainage. ENT: Nose without bleeding, purulent drainage. Throat without erythema, tonsillar hypertrophy or exudate. Airway patent. NECK: Trachea midline. Non tender CARDIOVASCULAR: Regular rate and rhythm without murmurs, gallops, or rubs. RESPIRATORY: Clear to auscultation. Breath sounds equal bilaterally. No wheezes, rales, or rhonchi. GASTROINTESTINAL: Abdomen soft, non-tender, nondistended. EXTREMITIES: full range of motion and strength at left shoulder with tenderness anteriorly, no obvious external manifestation of injury, no deformity, swelling. This is closed and neurovascularly intact. Great toe with some swelling, no ecchymosis, laceration or obvious deformity, closed and neurovascularly intact BACK: Nontender without deformity or crepitance. No flank tenderness. NEURO: AOx3. SKIN: No rash or erythema of visible areas Initial Vital Signs Initial Vital Signs: Vital Signs Temperature 99.9 F H 10/16/20 18:33 Pulse Rate 96 H 10/16/20 18:33 Respiratory Rate 18 10/16/20 18:33 Blood Pressure 170/76 H 10/16/20 18:33 Pulse Oximetry 97 10/16/20 18:33 Procedures Orthopedic Splinting/Casting Injury #1: Side: left Upper Extremity Injury Location: shoulder Upper Extremity Immobilizer: sling/shoulder immobilizer Post splinting neuro exam: intact Post splinting vascular exam: intact Placed by: Nursing Injury #2: Side: left Lower Extremity Injury Location: foot Lower Extremity Immobilizer: post-op shoe Post splinting neuro exam: intact Post splinting vascular exam: intact Placed by: Nursing MDM - Extremity Injury (Upper) Imaging Data Extremity x-ray #1: My Impression: no fracture Radiologist's Impression: [address] [id number] ReportSigned Patient: Kendal Dozier [facility]#: [id number]: 1980Acct:[id number]/Sex: 40 / FDate of Service: 10/16/20Loc: EDAccession Number: [id number] Procedure: XR toe LT min 2V Ordering Provider: Harley Mahmood D.O. PROCEDURE: XR TOE LT MIN 2V INDICATIONS: fell TECHNIQUE: Three views of the great toe acquired. COMPARISON: None. FINDINGS: Bones: No fractures or dislocations. No suspicious bony lesions. Soft tissues: No suspicious soft tissue densities. IMPRESSION: 1. No fracture or dislocation. Dictated by: Ji Lopez M.D. on 10/16/2020 at 20:49 Approved by: Ji Lopez M.D. on 10/16/2020 at 20:50 Extremity x-ray #2: My Impression: no fracture or dislocation Radiologist's Impression: [address] [id number] ReportSigned Patient: Kendal Dozier [facility]#: [id number]: 1980Acct:[id number]/Sex: 40 / FDate of Service: 10/16/20Loc: EDAccession Number: [id number] Procedure: XR shoulder LT min 2V Ordering Provider: Harley Mahmood D.O. PROCEDURE: XR SHOULDER LT MIN 2V INDICATIONS: fall TECHNIQUE: 3 views of the shoulder were acquired. COMPARISON: None. FINDINGS: Bones: No fractures or dislocations. No suspicious bony lesions. Visualized ribs appear intact. Soft tissues: No suspicious soft tissue calcifications. IMPRESSION: 1. No fracture or dislocation. Dictated by: Ji Lopez M.D. on 10/16/2020 at 20:48 Approved by: Ji Lopez M.D. on 10/16/2020 at 20:49 Discharge Plan Departure Patient Disposition: Home Clinical Impression: Sprain of left shoulder Qualifiers: Encounter type: initial encounter Shoulder sprain type: unspecified sprain Qualified Code(s): S43.402A - Unspecified sprain of left shoulder joint, initial encounter Sprain of toe Qualifiers: Encounter type: initial encounter Qualified Code(s): S93.509A - Unspecified sprain of unspecified toe(s), initial encounter Instructions: DI for Shoulder Sprain, DI for Toe Sprain Activity Restrictions/Additional Instructions: *You have been diagnosed with [fall with left shoulder sprain and left great toe sprain. X-rays and physical exam are very reassuring] *What to do: *Please continue to take your regular medications as directed. [ ] New medication prescriptions sent to your pharmacy: [ ] [ ] New medication written as a paper prescription [ ] No new medications given *Please follow up with your primary care provider in 2-3 days, call for an appointment. Let them know you were seen in the Emergency Department and that we ask that you be seen in follow up. We will electronically transmit a record of today's note if your PCP is in our system *If you do not have a primary care provider please contact the [facility] Resource line at [phone]. They will ask some questions about your medical history and help get you set up with a doctor in the community. *Return to Emergency Department if you should have any new, worsening or concerning symptoms, such as [fever greater than 101 F, shaking chills, worsening pain, persistent vomiting or other bothersome symptoms] Prescriptions: No Action trazodone 50 mg tablet 75 mg PO BEDTIME PRN (Reason: insomnia) Qty: 135 RF: 0 acetaminophen 500 mg capsule 1,000 mg PO Q6H PRNRF: 0 diphenhydramine HCl [Benadryl] 25 mg capsule 25 mg PO .PRN RF: 0 norethindrone (contraceptive) 0.35 mg tablet 0.35 mg PO DAILY Qty: 84 RF: 4 albuterol sulfate [ProAir HFA] 90 mcg/actuation HFA aerosol inhaler 2 puff inhalation Q3-4H PRN (Reason: shortness of breath or wheezing) Qty: 18 RF: 3 sumatriptan succinate 25 mg tablet See Rx Instructions PO .COMPLEX Qty: 8 RF: 0 Referrals: Nisha Juarez ARNP [Primary Care Provider] -
== END 2020-10-16 22:50 | disposition home or self-care (01) ==
PROVIDERS: Emergency Provider Emergency Medicine; PCP Registered Nurse
DX: S43.402A Unspecified sprain of left shoulder joint, initial encounter (principal); S93.502A Unspecified sprain of left great toe, initial encounter; W01.10XA Fall on same level from slipping, tripping and stumbling with subsequent striking against unspecified object, initial encounter
CPT/HCPCS: 73030; 73660; 99283

== ENCOUNTER → 2020-10-22 16:33 | Outpatient (CLI) | payer OTHER, MEDICAID, SELFPAY ==
[2020-03-02 11:12] VITALS: BMI 42.7
== END ==
PROVIDERS: PCP Registered Nurse; Visit Provider Physician Assistant
DX: J02.9 Acute pharyngitis, unspecified (principal)
CPT/HCPCS: 87070

== ENCOUNTER 2020-11-01 18:36 | Emergency (ER) | payer OTHER, MEDICAID, SELFPAY ==
[2020-03-02 11:12] VITALS: BMI 42.7
--- NOTE | 2020-11-01 18:40 | DI.RAD.S_ITS ---
PROCEDURE: XR CHEST 1V INDICATIONS: chest pain TECHNIQUE: One view of the chest was acquired. COMPARISON: [facility], CR, XR CHEST 1V, 02/23/2020, 22:57. FINDINGS: Surgical changes and devices: None. Lungs and pleura: Lungs are clear. No pleural effusions or pneumothorax. Mediastinum: Mediastinal contours appear normal. Heart size is normal. Bones and chest wall: No suspicious bony lesions. Overlying soft tissues appear unremarkable. IMPRESSION: No acute cardiopulmonary pathology. Dictated by: Brandon Crane M.D. on 11/01/2020 at 19:19 Approved by: Brandon Crane M.D. on 11/01/2020 at 19:19
[2020-11-01 18:51] VITALS: BP 131/76; PULSE 87; RESP 18; TEMP 36.8; O2SAT 96; BMI 42.7
[2020-11-01 19:02] LABS: Add Manual Diff / Slide Review NO; Basophils Absolute Auto 100 /uL (0-100); Basophils Percent Auto 0.6 % (0-2); Eosinophils Absolute Auto 200 /uL (0-450); Eosinophils Percent Auto 1.8 % (2-4); Hematocrit 43.2 % (36-46); Hemoglobin 14.5 g/dL (12.0-16.0); Lymphocytes Absolute Auto 3200 /uL (1100-4500); Mean Corpuscular HGB Conc 33.5 % (30-36); Mean Corpuscular Hemoglobin 30.8 PG (26-34); Mean Corpuscular Volume 91.8 fL (80-100); Monocytes Absolute Auto 900 /uL (0-900); Monocytes Percent Auto 7.2 % (3-14); Neutrophils Absolute Auto 8400 /uL (1500-7000); Neutrophils Percent Auto 65.4 % (50-75); Platelet Count 315 X10^3/uL (150-400); Red Blood Cell Count 4.71 X10^6/uL (4.0-5.2); Red Cell Distribution Width 14.5 % (11.6-14.8); White Blood Cell Count 12.9 X10^3/uL (4.5-11.0)
--- NOTE | 2020-11-01 19:04 | ED_ITS ---
HPI - Chest Pain General Chief Complaint: Chest Pain Stated Complaint: CHEST PAIN Time Seen by Provider: 11/01/20 18:42 Source: patient Mode of arrival: Family Vehicle Limitations: no limitations History of Present Illness HPI narrative: 40-year-old woman with a history of asthma call, allergies and insomnia presents with left-sided chest pain. Her symptoms actually began earlier this morning after drinking part of an energy drink. She had pain on the left side of her chest that radiated into the axilla. It resolved without other intervention but through the day she has noticed recurrent episodes of similar pain to the axilla. It tends to be worse when she is laying flat it is not exacerbated with exertion and it is worse with palpation along the left sternal border. Seem to be related to eating and is causing increasing anxiety over the course of the day that this point is troubling her enough that she came in for additional evaluation. She does not note that the pain was worse as she was getting ready to come to the ER, driving herself in or walking into registration. She denies any fevers, cough, chills, vomiting, diarrhea or abdominal pain. She notes that she had a fall in her yd on October 16 with some right shoulder and left foot pain all of these symptoms have resolved completely. Related Data Home Medications Medication Instructions Recorded Confirmed diphenhydramine HCl 25 mg capsule 25 mg PO .PRN cap 01/01/20 10/22/20 (Benadryl) acetaminophen 500 mg capsule 1,000 mg PO Q6H PRN 07/17/20 10/22/20 Previous Rx's Medication Instructions Recorded norethindrone (contraceptive) 0.35 0.35 mg PO DAILY #84 tab 07/06/20 mg tablet trazodone 50 mg tablet 75 mg PO BEDTIME PRN #135 tab 08/27/20 albuterol sulfate 90 mcg/actuation 2 puff INHALATION Q3-4H PRN #18 g 09/21/20 aerosol inhaler (ProAir HFA) azithromycin 250 mg tablet See Rx Instructions PO .COMPLEX #6 10/22/20 tab sumatriptan succinate 25 mg tablet See Rx Instructions PO .COMPLEX #8 10/22/20 tab Allergies Allergy/AdvReac Type Severity Reaction Status Date / Time metformin Allergy Severe feels like Verified 10/22/20 16:24 not herself/feels bad Penicillins Allergy Unknown Verified 10/22/20 16:24 aspirin [ASPIRIN] AdvReac Mild Verified 10/22/20 16:24 hydrocodone [HYDROCODONE] AdvReac Unknown head ache Verified 10/22/20 16:24 Review of Systems Review of Systems Narrative: Remainder of complete review of systems is otherwise unremarkable except for that included in the HPI. Patient History Medical History Anxiety Asthma Carpal tunnel syndrome Chicken pox (~1984) Finger pain, left Fractures Headache Migraine Tennis elbow Wears glasses Surgical History Anesthesia History of appendectomy (~2002) History of oral surgery Family History Father History of heart disease Hypertension Wears hearing aid Brother Hyperlipidemia Mother No significant medical problems Social History household members: none Smoking Status: Former smoker alcohol intake: current Smoking Status: Former smoker tobacco type: cigarettes alcohol intake frequency: holidays/special occasions only Substance Use Type: does not use Exam Narrative Exam Narrative: General: Healthy appearing, in no acute distress. Able to give a complete and coherent history. Well-nourished well-developed HEENT: Moist mucous membranes, normal sclera with reactive pupils, Respiratory: Lungs are clear to auscultation, no wheezing no rales no rhonchi. Full and symmetrical air movement Cardiac: Regular rate and rhythm no murmurs no bruits Chest: Tenderness along the left sternal border to palpation. When palpating ribs the left axillary line she has reproducible pain as well. There is no abrasions or contusions along the area of concern. Abdomen: Soft, nontender, good bowel tones, no flank pain. Some mild bruising from the fall on October 16 in the left lower abdomen that is healing nicely Skin: Warm and dry, no rashes Neurologic: Grossly neurologically intact with no obvious asymmetries or abn ormalities Extremities: No trauma, well perfused. Minor bruising and abrasions on the right arm from October 16 injury all healing nicely Psych: Cooperative, anxious, appropriate insight and affect Initial Vital Signs Initial Vital Signs: Vital Signs Temperature 98.2 F 11/01/20 18:51 Pulse Rate 87 11/01/20 18:51 Respiratory Rate 18 11/01/20 18:51 Blood Pressure 131/76 11/01/20 18:51 Pulse Oximetry 96 11/01/20 18:51 Course Orders Ordered: ED Orders 11/01/20 18:50 Complete Blood Count AUTO DIFF Stat Comprehensive Metabolic Panel Stat Lipase Stat Troponin & CK Cardiac Panel Stat 11/01/20 19:50 D Dimer Stat Vital Signs Vital signs: Vital Signs - 8 hr 11/01/20 20:36 Pulse Rate 76 Respiratory Rate 14 Blood Pressure 114/59 L Pulse Oximetry 97 MDM - Chest Pain Lab Data Lab results narrative: Unremarkable myocardial perfusion study done in February of 2020 FINDINGS: Raw data: There is good myocardial labeling by radiotracer. No significant motion artifacts. Tpcz-pg-apotc ratio is 0.48 (normal is less than 0.38 for sestamibi tracer, and less than 0.50 for thallium tracer). Left ventricle function: Gated images demonstrate normal left ventricle wall thickening. No segmental wall motion abnormality. No transient ischemic dilation; TID is 1.02 (normal less than 1.3). The left ventricle resting end-diastolic volume is 112 mL. Left ventricle stress ejection fraction is 72%; normal values are above 45%. Myocardial perfusion: There is normal distribution of activity in the left and right ventricular myocardium. No fixed or reversible perfusion defects. IMPRESSION: Low risk, normal treadmill nuclear stress test from ischemia st [facility]. Consider Echo to assess cardiac structure given elevated lung-heart ratio 1) No perfusion evidence of ischemia or infarction. 2) Normal left ventricular size, wall motion, and systolic function (EF post stress 72%). 3) Elevated lung-heart ratio of 0.48. Consider Echo to rule out structural heart disease. 4) No angina during the study. 5) No ECG evidence of ischemia. 6) Reduced exercise tolerance (7.0 METs, JANNET +25%). Target heart rate achieved, 7) Hypertensive response to exercise (resting BP 108/68mmHg, max BP 210/90mmHg). 8) No prior nuclear stress test available for comparison. Dictated by: Chino Subramanian MD on 02/24/2020 at 15:16 Result diagrams: 11/01/20 18:50 11/01/20 18:50 Labs: Lab Results 11/01/20 11/01/20 11/01/20 Range/Units 18:50 18:50 19:50 WBC 12.9 H (4.5-11.0) X10^3/uL RBC 4.71 (4.0-5.2) X10^6/uL Hgb 14.5 (12.0-16.0) g/dL Hct 43.2 (36-46) % MCV 91.8 (80-100) fL MCH 30.8 (26-34) PG MCHC 33.5 (30-36) % RDW 14.5 (11.6-14.8) % Plt Count 315 (150-400) X10^3/uL Neut % (Auto) 65.4 (50-75) % Lymph % (Auto) 25.0 (25-40) % [place] % (Auto) 7.2 (3-14) % Eos % (Auto) 1.8 L (2-4) % Baso % (Auto) 0.6 (0-2) % Neut # (Auto) 8400 H (1838-8002) /uL Lymph # (Auto) 3200 (9480-7556) /uL [place] # (Auto) 900 (0-900) /uL Eos # (Auto) 200 (0-450) /uL Baso # (Auto) 100 (0-100) /uL D-Dimer < 200 (<230) ng/mL Sodium 139 (137-145) mmol/L Potassium 3.6 (3.4-5.1) mmol/L Chloride 104 (98-107) mmol/L Carbon Dioxide 30 (22-32) mmol/L BUN 9 (7-17) mg/dL Creatinine 0.66 (0.52-1.04) mg/dL Estimated GFR > 60.0 (>60) mL/min BUN/Creatinine Ratio 13.6 (6-22) Glucose 116 H (70-100) mg/dL Calcium 9.9 (8.4-10.2) mg/dL Total Bilirubin 0.6 (0.2-1.3) mg/dL AST 26 (14-36) IU/L ALT 26 (<35) IU/L Alkaline Phosphatase 75 (38-126) U/L Total Creatine Kinase 55 (30-135) U/L CK-MB (CK-2) TNP CK-MB (CK-2) Rel Index TNP Troponin I < 0.012 (0.01-0.034) ng/mL Total Protein 7.5 (6.3-8.2) g/dL Albumin 4.3 (3.5-5.0) g/dL Globulin 3.2 (1.7-4.1) g/dL Albumin/Globulin Ratio 1.3 (1.0-2.8) Lipase 62 (23-300) U/L Imaging Data Chest x-ray: Radiologist's Impression: FINDINGS: Surgical changes and devices: None. Lungs and pleura: Lungs are clear. No pleural effusions or pneumothorax. Mediastinum: Mediastinal contours appear normal. Heart size is normal. Bones and chest wall: No suspicious bony lesions. Overlying soft tissues appear unremarkable. IMPRESSION: No acute cardiopulmonary pathology. Dictated by: Brandon Crane M.D. on 11/01/2020 at 19:19 ECG Data Interpretation: Sinus rhythm at a rate of 78 Normal intervals, normal axis No acute ischemic changes MDM Narrative Medical decision making narrative: 40-year-old woman presents with left-sided chest pain worse with deep inspiration and reproducible with palpation along the sternal margin and left axillary line. Workup does not suggest acute coronary syndrome, pulmonary embolism, pneumothorax, pneumonia. With pain reproducible and negative workup otherwise most likely diagnosis at this point is costochondritis. She did feel better after being treated with Toradol. Reassurance is given, questions are answered and she is safe for home discharge Discharge Plan Departure Patient Disposition: Home Clinical Impression: Acute costochondritis Instructions: DI for Costochondritis Activity Restrictions/Additional Instructions: Thank you for coming in today This is not a heart attack, a collapsed lung, broken ribs, blood clot in your lungs or pneumonia. I suspect that this is costochondritis. Typically it will improve within 7-10 days. Using 400 mg of ibuprofen (2 spsd-rdm-[id number] pills) and 1 Tylenol every 6 ho urs can be very helpful in controlling pain. I hope you heal quickly Prescriptions: No Action azithromycin 250 mg tablet See Rx Instructions PO .COMPLEX Qty: 6 RF: 0 trazodone 50 mg tablet 75 mg PO BEDTIME PRN (Reason: insomnia) Qty: 135 RF: 0 sumatriptan succinate 25 mg tablet See Rx Instructions PO .COMPLEX Qty: 8 RF: 0 acetaminophen 500 mg capsule 1,000 mg PO Q6H PRNRF: 0 diphenhydramine HCl [Benadryl] 25 mg capsule 25 mg PO .PRN RF: 0 norethindrone (contraceptive) 0.35 mg tablet 0.35 mg PO DAILY Qty: 84 RF: 4 albuterol sulfate [ProAir HFA] 90 mcg/actuation HFA aerosol inhaler 2 puff inhalation Q3-4H PRN (Reason: shortness of breath or wheezing) Qty: 18 RF: 3 Referrals: Nisha Juarez ARNP [Primary Care Provider] -
[2020-11-01 19:09] VITALS: BP 130/64; PULSE 85; RESP 16; O2SAT 95
[2020-11-01 19:14] LABS: Alanine Aminotransferase 26 IU/L (<35); Albumin 4.3 g/dL (3.5-5.0); Albumin Globulin Ratio 1.3 (1.0-2.8); Alkaline Phosphatase 75 U/L (38-126); Aspartate Aminotransferase 26 IU/L (14-36); BUN Creatinine Ratio 13.6 (6-22); Bilirubin Total 0.6 mg/dL (0.2-1.3); Blood Urea Nitrogen 9 mg/dL (7-17); Calcium 9.9 mg/dL (8.4-10.2); Carbon Dioxide 30 mmol/L (22-32); Chloride 104 mmol/L (98-107); Creatine Kinase 55 U/L (30-135); Estimated Glomerular Filt Rate > 60.0 mL/min (>60); Globulin 3.2 g/dL (1.7-4.1); Glucose 116 mg/dL (70-100); HEMOLYSIS < 15 (0-50); Lipase 62 U/L (23-300); Potassium 3.6 mmol/L (3.4-5.1); Sodium 139 mmol/L (137-145); Total Protein 7.5 g/dL (6.3-8.2)
[2020-11-01 19:26] LABS: Troponin I < 0.012 ng/mL (0.01-0.034)
[2020-11-01 20:11] LABS: D Dimer < 200 ng/mL (<230)
[2020-11-01 20:36] VITALS: BP 114/59; PULSE 76; RESP 14; O2SAT 97
== END 2020-11-01 20:38 | disposition home or self-care (01) ==
PROVIDERS: Emergency Provider Emergency Medicine; PCP Registered Nurse
DX: M94.0 Chondrocostal junction syndrome [Tietze] (principal)
CPT/HCPCS: 36415; 71045; 80053; 82550; 83690; 84484; 85025; 85379; 93005; 93010; 99283; 99284

== ENCOUNTER 2021-02-26 15:25 | Emergency (ER) | payer OTHER, MEDICAID, SELFPAY ==
[2020-03-02 11:12] VITALS: BMI 42.7
[2021-02-26] VITALS (9 sets, daily range): BP systolic 119–151; BP diastolic 59–88; PULSE 80–100; RESP 16–24; TEMP 36.2; O2SAT 97–100; BMI 35.2
--- NOTE | 2021-02-26 15:41 | DI.RAD.S_ITS ---
PROCEDURE: XR CHEST 2V INDICATIONS: SOB TECHNIQUE: 2 views of the chest were acquired. COMPARISON: [facility], , XR CHEST 1V, 11/01/2020, 18:41. FINDINGS: Surgical changes and devices: None. Lungs and pleura: Lungs are clear. No pleural effusions or pneumothorax. Mediastinum: Mediastinal contours are normal. Heart size is normal. Bones and chest wall: No suspicious bony abnormalities. Soft tissues appear unremarkable. IMPRESSION: Normal chest x-ray Approved by: Juan Ramon Patton M.D. on 02/26/2021 at 15:31
[2021-02-26 17:21] LABS: COVID19 -Nasal RAPID Negative (Negative)
[2021-02-26] MEDS: ALBUTEROL/IPRATROPIUM 3 ML AMPUL INH (17:36)
--- NOTE | 2021-02-26 18:47 | ED_ITS ---
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 She was using some Mr. patel curtain cleaner this evening, brain she has used for years and found that she was having increasing wheezing. She was unable to find her nebulizer tubing and could not find her albuterol inhaler. She comes to the emergency room for additional assistance. She describes the acute onset of wheezing approximately half an hour after she had been mopping her kitchen floor. She has had no recent fevers prior cough, abdominal pain, vomiting, diarrhea. She has no palpitations no headaches and does request COVID testing. Related Data Home Medications Medication Instructions Recorded Confirmed diphenhydramine HCl 25 mg capsule 25 mg PO .PRN cap 01/01/20 10/22/20 (Benadryl) acetaminophen 500 mg capsule 1,000 mg PO Q6H PRN 07/17/20 10/22/20 Previous Rx's Medication Instructions Recorded norethindrone (contraceptive) 0.35 0.35 mg PO DAILY #84 tab 07/06/20 mg tablet trazodone 50 mg tablet 75 mg PO BEDTIME PRN #135 tab 08/27/20 azithromycin 250 mg tablet See Rx Instructions PO .COMPLEX #6 10/22/20 tab sumatriptan succinate 25 mg tablet See Rx Instructions PO .COMPLEX #8 10/22/20 tab albuterol sulfate 90 mcg/actuation 2 puff INHALATION Q3-4H PRN #18 g 01/04/21 aerosol inhaler (ProAir HFA) albuterol sulfate 90 mcg/actuation 2 puff INHALATION Q6H PRN #6.7 g 02/26/21 aerosol inhaler Allergies Allergy/AdvReac Type Severity Reaction Status Date / Time metformin Allergy Severe feels like Verified 02/26/21 15:34 not herself/feels bad Penicillins Allergy Unknown Verified 02/26/21 15:34 aspirin [ASPIRIN] AdvReac Mild Verified 02/26/21 15:34 hydrocodone [HYDROCODONE] AdvReac Unknown head ache Verified 02/26/21 15:34 Review of Systems Review of Systems Narrative: Remainder of complete review of systems is otherwise unremarkable except for that included in the HPI. Patient History Medical History Anxiety Asthma Carpal tunnel syndrome Chicken pox (~1984) Finger pain, left Fractures Headache Migraine Tennis elbow Wears glasses Surgical History Anesthesia History of appendectomy (~2002) History of oral surgery Family History Father History of heart disease Hypertension Wears hearing aid Brother Hyperlipidemia Mother No significant medical problems Social History household members: none Smoking Status: Former smoker alcohol intake: current Smoking Status: Former smoker tobacco type: cigarettes alcohol intake frequency: holidays/special occasions only Substance Use Type: does not use Exam Narrative Exam Narrative: General: Healthy appearing, in no acute distress. Able to give a complete and coherent history. Well-nourished well-developed HEENT: Moist mucous membranes, normal sclera with reactive pupils, Respiratory: Exam is after DuoNeb, Lungs are clear to auscultation, no wheezing no rales no rhonchi. Full and symmetrical air movement Cardiac: Regular rate and rhythm no murmurs no bruits Abdomen: Soft, nontender, good bowel tones, no flank pain Skin: Warm and dry, no rashes Neurologic: Grossly neurologically intact with no obvious asymmetries or abnormalities Extremities: No trauma, well perfused Psych: Cooperative, appropriate insight and affect Initial Vital Signs Initial Vital Signs: Vital Signs Temperature 97.2 F L 02/26/21 15:34 Pulse Rate 100 H 02/26/21 15:34 Respiratory Rate 24 02/26/21 15:34 Blood Pressure 138/88 02/26/21 15:34 Pulse Oximetry 99 02/26/21 15:34 Course Orders Ordered: Discontinued Medications Albuterol/Ipratropium (Albuterol/Ipratropium 3 Ml Ampul) 3 ml INH NOW ONE Stop: 02/26/21 17:30 Last Admin: 02/26/21 17:36 Dose: 3 ml Documented by: SUSAN Vital Signs Vital signs: Vital Signs - 8 hr 02/26/21 15:34 02/26/21 16:30 02/26/21 16:31 Temperature 97.2 F L Pulse Rate 100 H 94 H 90 Respiratory Rate 24 Blood Pressure 138/88 151/71 H Pulse Oximetry 99 98 97 02/26/21 16:33 02/26/21 17:00 02/26/21 17:01 Temperature Pulse Rate 91 H 80 80 Respiratory Rate Blood Pressure 151/71 H 119/70 Pulse Oximetry 98 97 100 02/26/21 17:30 02/26/21 17:31 02/26/21 17:37 Temperature Pulse Rate 86 84 81 Respiratory Rate 16 Blood Pressure 122/59 L Pulse Oximetry 97 99 98 MDM - Asthma Lab Data Labs: Lab Results 02/26/21 Range/Units 15:41 SARS-CoV-2 (PCR) Negative (Negative) MDM Narrative Medical decision making narrative: 40-year-old woman with acute wheezing after exposure to house cleaning fluids. Typically would have used either her MDI or nebulizer but could not find the MDI or the nebulizer tubing. She does have plenty of nebulizer medication refills. With a single DuoNeb she is entirely wheeze free and feeling better. She is COVID negative, did suggest that a COVID vaccination would be beneficial in her setting. Refill for the MDI as written and she is sent home with the nebulizer tubing used in the emergency department. Breathing is free and unlabored at time of discharge. Safe for home discharge Discharge Plan Departure Patient Disposition: Home Clinical Impression: Asthma Qualifiers: Asthma severity: mild Asthma persistence: intermittent Asthma complication type: with acute exacerbation Qualified Code(s): J45.21 - Mild intermittent asthma with (acute) exacerbation Instructions: DI for Asthma -- Adult Activity Restrictions/Additional Instructions: Thank you for coming in today It sounds like your allergy induced asthma is the cause of the wheezing this afternoon. Your chest x-ray does not suggest an infection. Your COVID test was negative. Your responded beautifully to a DuoNeb treatment in the emergency department. The bump on the side of your head is very likely a sebaceous cyst. It is not infected and there is nothing that you need to do about it right now. Please do keep your appointment on March 23 with your regular doctor to evaluate it further at that time Congratulations on your day of being a nonsmoker. Well done! Do expect to have increasing cough and debris coming up from your lungs as they are beginning to clear all that toxin out. This will get better. If you find that you are having worsening wheezing please feel free to return to the ER Prescriptions: New albuterol sulfate 90 mcg/actuation HFA aerosol inhaler 2 puff inhalation Q6H PRN (Reason: shortness of breath or wheezing) Qty: 6.7 RF: 0 No Action azithromycin 250 mg tablet See Rx Instructions PO .COMPLEX Qty: 6 RF: 0 trazodone 50 mg tablet 75 mg PO BEDTIME PRN (Reason: insomnia) Qty: 135 RF: 0 sumatriptan succinate 25 mg tablet See Rx Instructions PO .COMPLEX Qty: 8 RF: 0 albuterol sulfate [ProAir HFA] 90 mcg/actuation HFA aerosol inhaler 2 puff inhalation Q3-4H PRN (Reason: shortness of breath or wheezing) Qty: 18 RF: 3 acetaminophen 500 mg capsule 1,000 mg PO Q6H PRNRF: 0 diphenhydramine HCl [Benadryl] 25 mg capsule 25 mg PO .PRN RF: 0 norethindrone (contraceptive) 0.35 mg tablet 0.35 mg PO DAILY Qty: 84 RF: 4 Referrals: Nisha Juarez ARNP [Primary Care Provider] -
== END 2021-02-26 21:42 | disposition home or self-care (01) ==
PROVIDERS: Emergency Medicine; Emergency Provider Emergency Medicine; PCP Registered Nurse
DX: J45.21 Mild intermittent asthma with (acute) exacerbation (principal); Z77.028 Contact with and (suspected) exposure to other hazardous aromatic compounds; Z20.822 Contact with and (suspected) exposure to COVID-19; Z87.891 Personal history of nicotine dependence
CPT/HCPCS: 71046; 87635; 94640; 99283; C9803

== ENCOUNTER → 2021-03-23 14:38 | Outpatient (CLI) | payer OTHER, MEDICAID, SELFPAY ==
[2020-03-02 11:12] VITALS: BMI 42.7
== END ==
PROVIDERS: PCP Registered Nurse; Referring Provider Nurse Practitioner Family; Visit Provider Nurse Practitioner Family
DX: L02.91 Cutaneous abscess, unspecified (principal)
CPT/HCPCS: 87070; 87075; 87205

== ENCOUNTER 2021-04-24 09:03 | Emergency (ER) | payer OTHER, MEDICAID, SELFPAY ==
[2020-03-02 11:12] VITALS: BMI 42.7
[2021-04-24 09:19] VITALS: BP 140/78; PULSE 84; RESP 14; TEMP 36.7; O2SAT 99; BMI 37.4
--- NOTE | 2021-04-24 09:23 | DI.RAD.S_ITS ---
PROCEDURE: XR FOOT LT MIN 3V INDICATIONS: rolled ankle,ankle and foot pain TECHNIQUE: 3 views of the foot were acquired. COMPARISON: [facility], CR, XR TOE LT MIN 2V, 10/16/2020, 18:49. [facility], CR, XR FOOT RT MIN 3V, 06/13/2020, 15:46. FINDINGS: Bones: No fractures or dislocations. Small os navicularis, unchanged. No suspicious bony lesions. Soft tissues: No tibiotalar joint effusion. Achilles tendon appears normal. Very small Achilles and plantar fascial insertional enthesophytes. IMPRESSION: No acute osseous abnormality. Dictated by: Avery Cabezas D.O. on 04/24/2021 at 9:21 Approved by: Avery Cabezas D.O. on 04/24/2021 at 9:22
--- NOTE | 2021-04-24 09:23 | DI.RAD.S_ITS ---
PROCEDURE: XR ANKLE LT MIN 3V INDICATIONS: rolled ankle,ankle and foot pain TECHNIQUE: 3 views of the ankle were acquired. COMPARISON: [facility], CR, XR TOE LT MIN 2V, 10/16/2020, 18:49. [facility], CR, XR FOOT LT MIN 3V, 06/13/2020, 15:46. FINDINGS: Bones: No fractures or dislocations. Ankle mortise is normally aligned. No suspicious bony lesions. Soft tissues: No tibiotalar joint effusion. Achilles tendon appears normal. Very small Achilles and plantar fascial insertional enthesophytes. IMPRESSION: No acute osseous abnormality. Dictated by: Avery Cabezas D.O. on 04/24/2021 at 9:19 Approved by: Avery Cabezas D.O. on 04/24/2021 at 9:21
--- NOTE | 2021-04-24 10:25 | ED.LOWEXIN ---
HPI - Extremity Injury (Lower) General Chief Complaint: Extremity Injury, Lower Stated Complaint: LT. ANKLE PAIN AFTER FALL Time Seen by Provider: 04/24/21 10:25 Source: patient Mode of arrival: Wheelchair Limitations: no limitations History of Present Illness HPI Narrative: This is a 40-year-old female comes with complaint left ankle pain. Last night patient was walking downhill on some grass and there was some leftover ice she slipped and thinks that she inverted her ankle and then landed on top of her foot. She was able to get to her vehicle and did it again. She states she sat for about 30 minutes and then crawled back to her house. Since then she has had significant pain over the dorsum of the foot on the lateral side the lateral malleoli and just above. She has had some mild swelling. No obvious bruising. She has pain with any sort of weight-bearing. Patient did take some ibuprofen at 6:00 a.m. this morning. She denies any other medications so far. She denies any other injuries. Related Data Home Medications Medication Instructions Recorded Confirmed diphenhydramine HCl 25 mg capsule 25 mg PO .PRN cap 01/01/20 03/23/21 (Benadryl) acetaminophen 500 mg capsule 1,000 mg PO Q6H PRN 07/17/20 03/23/21 Previous Rx's Medication Instructions Recorded norethindrone (contraceptive) 0.35 0.35 mg PO DAILY #84 tab 07/06/20 mg tablet trazodone 50 mg tablet 75 mg PO BEDTIME PRN #135 tab 08/27/20 azithromycin 250 mg tablet See Rx Instructions PO .COMPLEX #6 10/22/20 tab albuterol sulfate 90 mcg/actuation 2 puff INHALATION Q3-4H PRN #18 g 01/04/21 aerosol inhaler (ProAir HFA) albuterol sulfate 90 mcg/actuation 2 puff INHALATION Q6H PRN #6.7 g 02/26/21 aerosol inhaler sumatriptan succinate 25 mg tablet See Rx Instructions PO .COMPLEX #8 03/22/21 tab Allergies Allergy/AdvReac Type Severity Reaction Status Date / Time metformin Allergy Severe feels like Verified 04/24/21 09:23 not herself/feels bad Penicillins Allergy Unknown Verified 04/24/21 09:23 aspirin [ASPIRIN] AdvReac Mild Verified 04/24/21 09:23 hydrocodone [HYDROCODONE] AdvReac Unknown head ache Verified 04/24/21 09:23 Review of Systems Review of Systems ROS Unobtainable: All systems reviewed & are unremarkable except as noted in HPI and below Patient History Medical History Anxiety Asthma Carpal tunnel syndrome Chicken pox (~1984) Finger pain, left Fractures Headache Migraine Tennis elbow Wears glasses Surgical History Anesthesia History of appendectomy (~2002) History of oral surgery Family History Father History of heart disease Hypertension Wears hearing aid Brother Hyperlipidemia Mother No significant medical problems Social History household members: none Smoking Status: Former smoker alcohol intake: current Smoking Status: Former smoker tobacco type: cigarettes alcohol intake frequency: holidays/special occasions only Substance Use Type: does not use Exam Narrative Exam Narrative: GENERAL: Alert and oriented x three, female in mild distress. HEENT: Head normocephalic, atraumatic, EOMI, pupils reactive, face symmetric, moist mucous membranes NECK: Supple, full range of motion EXTREMITIES: Normal range of motion, no clubbing patient has some very mild swelling over the lateral malleoli. She has tenderness over the 3rd 4th and 5th metatarsals and Lateral malleoli of the left ankle and foot. There is no obvious ecchymosis. Neurovascularly Intact. Patient has 2+ dorsalis pedis. Normal sensation to touch. Cap refills less than 2 seconds in all 5 toes. No obvious deformity. NEUROLOGICAL: Cranial nerves II through XII grossly intact. Moving all extremities SKIN: Warm, dry, no petechiae, no rashes or lesions. Initial Vital Signs Initial Vital Signs: Vital Signs Temperature 98.1 F 04/24/21 09:19 Pulse Rate 84 04/24/21 09:19 Respiratory Rate 14 04/24/21 09:19 Blood Pressure 140/78 04/24/21 09:19 Pulse Oximetry 99 04/24/21 09:19 Course Orders Ordered: ED Orders 04/24/21 09:23 XR ankle LT min 3V Stat XR foot LT min 3V Stat Vital Signs Vital signs: Vital Signs - 8 hr 04/24/21 09:19 04/24/21 12:09 Temperature 98.1 F Pulse Rate 84 81 Respiratory Rate 14 17 Blood Pressure 140/78 131/75 Pulse Oximetry 99 98 MDM - Extremity Injury (Lower) Imaging Data Extremity x-ray #1: Radiologist's Impression: Kendal Dozier??40??F??1980 ? Allergy/Adv: metformin, Penicillins, aspirin, hydrocodone (More??) Close Foot X-Ray (Signed) Cabezas,Avery - 04/24/21 Ankle X-Ray (Signed) Cabezas,Avery - 04/24/21 Chest X-Ray (Signed) Juan Ramon Patton - 02/26/21 Chest X-Ray (Signed) Brandon Crane - 11/01/20 Shoulder X-Ray (Signed) Ji Lopez - 10/16/20 Toe X-Ray (Signed) Ji Lopez - 10/16/20 Knee X-Ray (Signed) Mcdaniel,Muneer - 06/13/20 Foot X-Ray (Signed) Mcdaniel,Muneer - 06/13/20 Foot X-Ray (Signed) Mcdaniel,Muneer - 06/13/20 Elbow X-Ray (Signed) Mcdaniel,Muneer - 06/13/20 Myocardial Perfusion Scan Nuc Med (Signed) Chino Subramanian - 02/24/20 Telemetry Strips 02/24/20 Chest X-Ray (Signed) Angela Maza - 02/23/20 Mammogram Screening (Signed) Kevon Dior - 02/10/20 Chest X-Ray (Signed) Lalit Carroll - 02/02/20 Wrist X-Ray (Signed) Sara Stewart - 12/27/19 Elbow X-Ray (Signed) Jesus Jack - 12/09/19 Chest X-Ray (Signed) Brandon Crane - 11/26/19 Chest CTA (Signed) Sierra Cheung - 05/29/18 Chest X-Ray (Signed) Jesus Jack - 05/27/18 Telemetry Strips 05/25/18 Chest X-Ray (Signed) Jesus Jack - 02/08/19 Launch?Image [address] [address] XRay Report Signed Patient: Kendal Dozier MR#: [id number] : 1980 Acct:[id number] Age/Sex: 40 / F Date of Service: 04/24/21 Loc: ED Accession Number: [id number] ?? Procedure: XR ankle LT min 3V Ordering Provider: Francesca Rush D.O. PROCEDURE:? XR ANKLE LT MIN 3V ? INDICATIONS:? rolled ankle,ankle and foot pain ? TECHNIQUE:? 3 views of the ankle were acquired.? ? COMPARISON:? [facility], CR, XR TOE LT MIN 2V, 10/16/2020, 18:49.? [facility], CR, XR FOOT LT MIN 3V, 06/13/2020, 15:46. ? FINDINGS:? ? Bones:? No fractures or dislocations.? Ankle mortise is normally aligned.? No suspicious bony lesions.? ? Soft tissues:? No tibiotalar joint effusion.? Achilles tendon appears normal.? Very small Achilles and plantar fascial insertional enthesophytes. ? ? IMPRESSION:? ? No acute osseous abnormality. ? ? ? Dictated by: Avery Cabezas D.O. on 04/24/2021 at 9:19 ? ? Approved by: Avery Cabezas D.O. on 04/24/2021 at 9:21?? Extremity x-ray #2: Radiologist's Impression: [address] [address] XRay Report Signed Patient: Kendal Dozire MR#: [id number] : 1980 Acct:[id number] Age/Sex: 40 / F Date of Service: 04/24/21 Loc: ED Accession Number: [id number] ?? Procedure: XR foot LT min 3V Ordering Provider: Francesca Rush D.O. PROCEDURE:? XR FOOT LT MIN 3V ? INDICATIONS:? rolled ankle,ankle and foot pain ? TECHNIQUE:? 3 views of the foot were acquired.? ? COMPARISON:? [facility], CR, XR TOE LT MIN 2V, 10/16/2020, 18:49.? [facility], CR, XR FOOT RT MIN 3V, 06/13/2020, 15:46. ? FINDINGS:? ? Bones:? No fractures or dislocations.? Small os navicularis, unchanged.? No suspicious bony lesions.? ? Soft tissues:? No tibiotalar joint effusion.? Achilles tendon appears normal.? Very small Achilles and plantar fascial insertional enthesophytes. ? ? IMPRESSION:? ? No acute osseous abnormality. ? ? Dictated by: Avery Cabezas D.O. on 04/24/2021 at 9:21 ? ? Approved by: Avery Cabezas D.O. on 04/24/2021 at 9:22?? MDM Narrative Medical decision making narrative: This is a 40-year-old female who had what appears to be an ankle sprain but does have pain with palpation and weight-bearing. X-ray of foot and ankle are negative. Patient was placed ortho boot with toe-touch weight-bearing with crutches. If symptoms resolve she can return to normal activity. We discussed that if she continues to have significant symptoms she needs repeat imaging in 710 days to evaluate for occult fracture. Patient did ask about dosing for Tylenol and ibuprofen for optimum pain control. And we reviewed conservative measures/treatment as well. Discharge Plan Departure Patient Disposition: Home Clinical Impression: Left ankle sprain Instructions: DI for Ankle Sprain Activity Restrictions/Additional Instructions: Follow-up with your physician for recheck if you have not had improvement the next 7-10 days. You can have small very tiny occult fractures that are not visualized on imaging until 7-10 days after your injury. You may weightbear as tolerated. If your symptoms completely resolved you do not have to continue to wear ortho boot or crutches. May take ibuprofen up to 800 mg every 8 hours and/or Tylenol up to a 1000 mg every 8 hours as needed for pain. Splint Care: Keep splint clean and dry. Elevated affected body part to decrease swelling. OK to use ice pack on the affected body part. Use for 15-20 minutes each time, for 5-6x per day. If you develop worsening pain, numbness, tingling, discoloration of the affected body part, loosen the splint by loosening the BEVERLY wrap, and either see your doctor for an urgent re-assessment, or return to the Emergency Department. Return to the Emergency Department for any new or worsening symptoms. Prescriptions: No Action azithromycin 250 mg tablet See Rx Instructions PO .COMPLEX Qty: 6 0RF Rx Instructions: take 500 mg today (day 1), then 250 mg for 4 days (days 2-5) PO trazodone 50 mg tablet 75 mg PO BEDTIME PRN (Reason: insomnia) Qty: 135 0RF albuterol sulfate [ProAir HFA] 90 mcg/actuation HFA aerosol inhaler 2 puff inhalation Q3-4H PRN (Reason: shortness of breath or wheezing) Qty: 18 3RF sumatriptan succinate 25 mg tablet See Rx Instructions PO .COMPLEX Qty: 8 0RF Rx Instructions: take 1 tab at onset of headache; if no relief may repeat 1 tab after at least 2 hrs; max = 4 tabs/24 hr PO acetaminophen 500 mg capsule 1,000 mg PO Q6H PRN0RF diphenhydramine HCl [Benadryl] 25 mg capsule 25 mg PO .PRN 0RF norethindrone (contraceptive) 0.35 mg tablet 0.35 mg PO DAILY Qty: 84 4RF Rx Instructions: Take once daily at same time every day. albuterol sulfate 90 mcg/actuation HFA aerosol inhaler 2 puff inhalation Q6H PRN (Reason: shortness of breath or wheezing) Qty: 6.7 0RF Referrals: Nisha Juarez ARNP [Primary Care Provider] -
[2021-04-24 12:09] VITALS: BP 131/75; PULSE 81; RESP 17; O2SAT 98
== END 2021-04-24 12:09 | disposition home or self-care (01) ==
PROVIDERS: Emergency Provider Emergency Medicine; PCP Registered Nurse
DX: S93.402A Sprain of unspecified ligament of left ankle, initial encounter (principal); X50.1XXA Overexertion from prolonged static or awkward postures, initial encounter; Y93.01 Activity, walking, marching and hiking
CPT/HCPCS: 73610; 73630; 99283

== ENCOUNTER 2021-04-28 06:06 | Emergency (ER) | payer OTHER, MEDICAID, SELFPAY ==
[2020-03-02 11:12] VITALS: BMI 42.7
[2021-04-28 06:15] VITALS: BP 160/94; PULSE 96; RESP 18; TEMP 36.8; O2SAT 98; BMI 35.6
--- NOTE | 2021-04-28 06:17 | DI.RAD.S_ITS ---
PROCEDURE: XR FEMUR LT MIN 2V INDICATIONS: pain after fall TECHNIQUE: 2 views of the femur were acquired. COMPARISON: None. FINDINGS: Bones: No fractures or dislocations. No suspicious bony lesions. Soft tissues: No suspicious soft tissue calcifications or masses. IMPRESSION: No fracture. No osseous lesion. If symptoms and/or clinical suspicion for pathology persists, further assessment with repeat radiographs (7-10 days) or advanced imaging (e.g. CT, MRI or bone scan) should be considered. Dictated by: Angela Maza MD, PhD on 04/28/2021 at 8:43 Approved by: Angela Maza MD, PhD on 04/28/2021 at 8:44
--- NOTE | 2021-04-28 06:17 | DI.RAD.S_ITS ---
PROCEDURE: XR TIBIA FIBULA LT 2V INDICATIONS: pain after fall TECHNIQUE: 2 views of the tibia and fibula were acquired. COMPARISON: None. FINDINGS: Bones: No fractures or dislocations. No suspicious bony lesions. Soft tissues: No suspicious soft tissue calcifications or masses. IMPRESSION: No fracture. No osseous lesion. If symptoms and/or clinical suspicion for pathology persists, further assessment with repeat radiographs (7-10 days) or advanced imaging (e.g. CT, MRI or bone scan) should be considered. Dictated by: Angela Maza MD, PhD on 04/28/2021 at 8:44 Approved by: Angela Maza MD, PhD on 04/28/2021 at 8:44
--- NOTE | 2021-04-28 06:18 | ED.GENADULT ---
HPI - General Adult General Chief complaint: Extremity Injury, Lower Stated complaint: left foot injury Time Seen by Provider: 04/28/21 06:12 Source: patient Mode of arrival: Wheelchair History of Present Illness HPI narrative: Patient is a 40-year-old female who was seen here within the past week after falling on some ice and injuring her left foot/ankle. She had x-rays performed. There was no acute fractures. She was given crutches and a orthopedic boot for her comfort. She states that this morning she was walking at her car and slid down with a hill again landing on her left leg. Was able to drive herself here to the emergency department but now has significant pain in her thigh and knee and left lower extremity. Has not tried anything for the symptoms prior to arrival. Related Data Home Medications Medication Instructions Recorded Confirmed diphenhydramine HCl 25 mg capsule 25 mg PO .PRN cap 01/01/20 03/23/21 (Benadryl) acetaminophen 500 mg capsule 1,000 mg PO Q6H PRN 07/17/20 03/23/21 Previous Rx's Medication Instructions Recorded norethindrone (contraceptive) 0.35 0.35 mg PO DAILY #84 tab 07/06/20 mg tablet trazodone 50 mg tablet 75 mg PO BEDTIME PRN #135 tab 08/27/20 azithromycin 250 mg tablet See Rx Instructions PO .COMPLEX #6 10/22/20 tab albuterol sulfate 90 mcg/actuation 2 puff INHALATION Q3-4H PRN #18 g 01/04/21 aerosol inhaler (ProAir HFA) albuterol sulfate 90 mcg/actuation 2 puff INHALATION Q6H PRN #6.7 g 02/26/21 aerosol inhaler sumatriptan succinate 25 mg tablet See Rx Instructions PO .COMPLEX #8 03/22/21 tab Allergies Allergy/AdvReac Type Severity Reaction Status Date / Time metformin Allergy Severe feels like Verified 04/24/21 09:23 not herself/feels bad Penicillins Allergy Unknown Verified 04/24/21 09:23 aspirin [ASPIRIN] AdvReac Mild Verified 04/24/21 09:23 hydrocodone [HYDROCODONE] AdvReac Unknown head ache Verified 04/24/21 09:23 Review of Systems Musculoskeletal Musculoskeletal: Reports system reviewed and no additional complaints, except as documented and Reports as per HPI Integumentary/Breasts Skin/Breast: Reports system reviewed and no additional complaints, except as documented and Reports as per HPI Neurologic Neurologic: Reports system reviewed and no additional complaints, except as documented Hematologic/Lymphatic On Anticoagulants: No Patient History Medical History Anxiety Asthma Carpal tunnel syndrome Chicken pox (~1984) Finger pain, left Fractures Headache Migraine Tennis elbow Wears glasses Surgical History Anesthesia History of appendectomy (~2002) History of oral surgery Family History Father History of heart disease Hypertension Wears hearing aid Brother Hyperlipidemia Mother No significant medical problems Social History household members: none Smoking Status: Former smoker alcohol intake: current Smoking Status: Former smoker tobacco type: cigarettes alcohol intake frequency: holidays/special occasions only Substance Use Type: does not use Exam Initial Vital Signs Initial Vital Signs: Vital Signs Temperature 98.3 F 04/28/21 06:15 Pulse Rate 96 H 04/28/21 06:15 Respiratory Rate 18 04/28/21 06:15 Blood Pressure 160/94 H 04/28/21 06:15 Pulse Oximetry 98 04/28/21 06:15 HENMT Head: normal to inspection and normocephalic Resp Effort & Inspection: normal respiratory effort Cardio Rate: regular rate Skin General: no rashes or lesions noted Neuro General: patient alert and patient awake Extrem Other: Tenderness to palpation left thigh left knee and left lower extremity. Course Orders Ordered: ED Orders 04/28/21 06:17 XR femur LT min 2V Stat XR tibia fibula LT 2V Stat Vital Signs Vital signs: Vital Signs - 8 hr 04/28/21 06:15 Temperature 98.3 F Pulse Rate 96 H Respiratory Rate 18 Blood Pressure 160/94 H Pulse Oximetry 98 Medical Decision Making Imaging Data Extremity x-ray #1: Radiologist's Impression: No acute fractures of the femur Extremity x-ray #2: Radiologist's Impression: No acute tib-fib fractures MDM Narrative Medical decision making narrative: Patient has no fractures noted on the x-rays. Neurovascularly intact. She has a walking boot and crutches at home already. She can take Tylenol and ibuprofen for discomfort. Discharge Plan Departure Patient Disposition: Home Clinical Impression: Injury of left leg Activity Restrictions/Additional Instructions: You can continue to use the walking boot and also the crutches as needed for discomfort. There were no fractures noted on the x-ray so you can walk on your left leg as tolerated. Return to the emergency department for any new or worsening symptoms. Prescriptions: No Action azithromycin 250 mg tablet See Rx Instructions PO .COMPLEX Qty: 6 0RF Rx Instructions: take 500 mg today (day 1), then 250 mg for 4 days (days 2-5) PO trazodone 50 mg tablet 75 mg PO BEDTIME PRN (Reason: insomnia) Qty: 135 0RF albuterol sulfate [ProAir HFA] 90 mcg/actuation HFA aerosol inhaler 2 puff inhalation Q3-4H PRN (Reason: shortness of breath or wheezing) Qty: 18 3RF sumatriptan succinate 25 mg tablet See Rx Instructions PO .COMPLEX Qty: 8 0RF Rx Instructions: take 1 tab at onset of headache; if no relief may repeat 1 tab after at least 2 hrs; max = 4 tabs/24 hr PO acetaminophen 500 mg capsule 1,000 mg PO Q6H PRN0RF diphenhydramine HCl [Benadryl] 25 mg capsule 25 mg PO .PRN 0RF norethindrone (contraceptive) 0.35 mg tablet 0.35 mg PO DAILY Qty: 84 4RF Rx Instructions: Take once daily at same time every day. albuterol sulfate 90 mcg/actuation HFA aerosol inhaler 2 puff inhalation Q6H PRN (Reason: shortness of breath or wheezing) Qty: 6.7 0RF Referrals: Nisha Juarez ARNP [Primary Care Provider] -
[2021-04-28 07:05] VITALS: BP 128/71; PULSE 76; RESP 18; O2SAT 98
== END 2021-04-28 07:05 | disposition home or self-care (01) ==
PROVIDERS: Emergency Provider Emergency Medicine; PCP Registered Nurse
DX: S99.922A Unspecified injury of left foot, initial encounter (principal); S99.912A Unspecified injury of left ankle, initial encounter; W00.0XXA Fall on same level due to ice and snow, initial encounter
CPT/HCPCS: 73552; 73590; 99283

== ENCOUNTER 2021-07-14 18:18 | Emergency (ER) | payer OTHER, MEDICAID, SELFPAY ==
[2020-03-02 11:12] VITALS: BMI 42.7
[2021-07-14] VITALS (12 sets, daily range): BP systolic 139–171; BP diastolic 57–89; PULSE 73–88; RESP 14–24; TEMP 36.6; O2SAT 94–99
--- NOTE | 2021-07-14 18:29 | DI.RAD.S_ITS ---
PROCEDURE: XR CHEST 2V INDICATIONS: shortness of breath TECHNIQUE: 2 views of the chest were acquired. COMPARISON: [facility], CR, XR CHEST 1V, 11/01/2020, 18:41. [facility], CR, XR CHEST 2V, 02/26/2021, 15:55. FINDINGS: Surgical changes and devices: None. Lungs and pleura: Lungs are clear. No pleural effusions or pneumothorax. Mediastinum: Mediastinal contours are normal. Heart size is normal. Bones and chest wall: No suspicious bony abnormalities. Soft tissues appear unremarkable. IMPRESSION: No acute cardiopulmonary disease. Dictated by: German Montenegro M.D. on 07/14/2021 at 18:47 Approved by: German Montenegro M.D. on 07/14/2021 at 18:48
[2021-07-14 19:08] LABS: Add Manual Diff / Slide Review NO; Basophils Absolute Auto 100 /uL (0-100); Basophils Percent Auto 1.4 % (0-2); Eosinophils Absolute Auto 400 /uL (0-450); Eosinophils Percent Auto 3.8 % (2-4); Hematocrit 40.7 % (36-46); Hemoglobin 13.9 g/dL (12.0-16.0); Lymphocytes Absolute Auto 3800 /uL (1100-4500); Lymphocytes Percent Auto 36.1 % (25-40); Mean Corpuscular Hemoglobin 31.3 PG (26-34); Monocytes Absolute Auto 1000 /uL (0-900); Monocytes Percent Auto 9.6 % (3-14); Neutrophils Absolute Auto 5100 /uL (1500-7000); Neutrophils Percent Auto 49.1 % (50-75); Platelet Count 312 X10^3/uL (150-400); Red Blood Cell Count 4.42 X10^6/uL (4.0-5.2); Red Cell Distribution Width 14.3 % (11.6-14.8); White Blood Cell Count 10.5 X10^3/uL (4.5-11.0)
[2021-07-14 19:14] LABS: Lactate (Lactic Acid) 0.9 mmol/L (0.7-2.1)
[2021-07-14 19:15] LABS: Alanine Aminotransferase 21 IU/L (<35); Albumin Globulin Ratio 1.3 (1.0-2.8); Alkaline Phosphatase 76 U/L (38-126); Aspartate Aminotransferase 20 IU/L (14-36); BUN Creatinine Ratio 16.7 (6-22); Bilirubin Total 0.4 mg/dL (0.2-1.3); Blood Urea Nitrogen 9 mg/dL (7-17); Calcium 8.9 mg/dL (8.4-10.2); Carbon Dioxide 29 mmol/L (22-32); Chloride 106 mmol/L (98-107); Estimated Glomerular Filt Rate > 60.0 mL/min (>60); Globulin 3.1 g/dL (1.7-4.1); Glucose 144 mg/dL (70-100); HEMOLYSIS < 15 (0-50); Sodium 139 mmol/L (137-145); Total Protein 7.1 g/dL (6.3-8.2)
[2021-07-14] MEDS: ALBUTEROL/IPRATROPIUM 3 ML AMPUL INH (19:17)
[2021-07-14 19:26] LABS: COVID19 -Nasal RAPID Negative (Negative)
--- NOTE | 2021-07-14 19:51 | ED.GENADULT ---
HPI - General Adult General Chief complaint: Shortness of Breath/Dyspnea Stated complaint: Lathargic SOB Chest Pain, Painful to breathe Time Seen by Provider: 07/14/21 19:05 Source: patient Mode of arrival: Ambulatory History of Present Illness HPI narrative: 40-year-old woman with a history of asthma and migraine presents with 24 hours of worsening nausea vomiting and pleuritic chest pain. Started early yesterday morning she did try to go to work and ended up vomiting about 3 hours later. She slept through most of the day and when she awoke felt that she was having worsening overall myalgias of pleuritic chest pain with the posterior lung whitley being most involved and she is noticing that the migraine is starting as well. She has not had additional vomiting and she denies fevers. She has not been sick otherwise. She notes that her asthma has been relatively stable at this point. She uses ProAir inhaler and does have both albuterol and DuoNeb available for nebulizing at home. She denies significant cough, palpitations, fevers. She has not had any abdominal pain or diarrhea. She did take some sumatriptan earlier today arm with complaints of migraine developing as the rest of her symptoms have gotten worse. Related Data Home Medications Medication Instructions Recorded Confirmed diphenhydramine HCl 25 mg capsule 25 mg PO .PRN cap 01/01/20 03/23/21 (Benadryl) acetaminophen 500 mg capsule 1,000 mg PO Q6H PRN 07/17/20 03/23/21 Previous Rx's Medication Instructions Recorded norethindrone (contraceptive) 0.35 0.35 mg PO DAILY #84 tab 07/06/20 mg tablet trazodone 50 mg tablet 75 mg PO BEDTIME PRN #135 tab 08/27/20 azithromycin 250 mg tablet See Rx Instructions PO .COMPLEX #6 10/22/20 tab albuterol sulfate 90 mcg/actuation 2 puff INHALATION Q6H PRN #6.7 g 02/26/21 aerosol inhaler albuterol sulfate 90 mcg/actuation 2 puff INHALATION Q3-4H PRN #18 g 06/24/21 aerosol inhaler (ProAir HFA) sumatriptan succinate 25 mg tablet See Rx Instructions .ROUTE 06/24/21 .COMPLEX #8 tab ondansetron 4 mg disintegrating 4 mg PO Q8H PRN #14 tab 07/14/21 tablet prednisone 20 mg tablet 20 mg PO DAILY #5 tab 07/14/21 Allergies Allergy/AdvReac Type Severity Reaction Status Date / Time metformin Allergy Severe feels like Verified 04/24/21 09:23 not herself/feels bad Penicillins Allergy Unknown Verified 04/24/21 09:23 aspirin [ASPIRIN] AdvReac Mild Verified 04/24/21 09:23 hydrocodone [HYDROCODONE] AdvReac Unknown head ache Verified 04/24/21 09:23 Review of Systems Review of Systems Narrative: Remainder of complete review of systems is otherwise unremarkable except for that included in the HPI. Patient History Medical History Anxiety Asthma Carpal tunnel syndrome Chicken pox (~1984) Finger pain, left Fractures Headache Migraine Tennis elbow Wears glasses Surgical History Anesthesia History of appendectomy (~2002) History of oral surgery Family History Father History of heart disease Hypertension Wears hearing aid Brother Hyperlipidemia Mother No significant medical problems Social History household members: none Smoking Status: Former smoker alcohol intake: current Smoking Status: Former smoker tobacco type: cigarettes alcohol intake frequency: holidays/special occasions only Substance Use Type: does not use Exam Initial Vital Signs Initial Vital Signs: Vital Signs Temperature 97.8 F 07/14/21 18:30 Pulse Rate 88 07/14/21 18:30 Respiratory Rate 22 07/14/21 18:30 Blood Pressure 171/79 H 07/14/21 18:30 Pulse Oximetry 97 07/14/21 18:30 General: Healthy appearing, in no acute distress. Able to give a complete and coherent history. Well-nourished well-developed HEENT: Moist mucous membranes, normal sclera with reactive pupils, Neck: No cervical adenopathy, supple Respiratory: Lungs with minor end expiratory wheeze after initial nebulized treatment, no rhonchi. No accessory muscle use, Full and symmetrical air movement Cardiac: Regular rate and rhythm no murmurs no bruits Abdomen: Soft, nontender, good bowel tones, no flank pain Skin: Warm and dry, no rashes Neurologic: Grossly neurologically intact with no obvious asymmetries or abnormalities Extremities: No trauma, well perfused Psych: Cooperative, appropriate insight and affect Course Orders Ordered: ED Orders 07/14/21 20:25 Respiratory Panel (Film Array) Stat Discontinued Medications Albuterol/Ipratropium (Albuterol/Ipratropium 3 Ml Ampul) 3 ml INH NOW ONE Stop: 07/14/21 19:05 Last Admin: 07/14/21 19:17 Dose: 3 ml Documented by: NOEMI Diphenhydramine HCl (Diphenhydramine 50 Mg/Ml Vial) 25 mg IV NOW ONE Stop: 07/14/21 20:08 Last Admin: 07/14/21 20:14 Dose: 25 mg Documented by: SEBASTIÁN Ketorolac Tromethamine (Ketorolac 30 Mg/Ml Vial) 15 mg IV NOW ONE Stop: 07/14/21 20:08 Last Admin: 07/14/21 20:15 Dose: 15 mg Documented by: SEBASTIÁN Methylprednisolone (Methylprednisolone 125 Mg/2 Ml Vial) 125 mg IV NOW ONE Stop: 07/14/21 20:08 Last Admin: 07/14/21 20:14 Dose: 125 mg Documented by: SEBASTIÁN Metoclopramide HCl (Metoclopramide 10 Mg/2 Ml Inj) 10 mg IV NOW ONE Stop: 07/14/21 20:08 Last Admin: 07/14/21 20:16 Dose: 10 mg Documented by: SEBASTIÁN Vital Signs Vital signs: Vital Signs - 8 hr 07/14/21 20:00 07/14/21 20:30 07/14/21 21:00 Pulse Rate 73 74 87 Respiratory Rate 19 14 24 Blood Pressure Pulse Oximetry 99 99 98 07/14/21 21:01 07/14/21 21:30 07/14/21 21:31 Pulse Rate 85 80 79 Respiratory Rate 18 18 17 Blood Pressure 145/89 H 139/70 Pulse Oximetry 98 94 95 Medical Decision Making Lab Data Result diagrams: 07/14/21 18:47 07/14/21 18:47 Labs: Lab Results 07/14/21 07/14/21 07/14/21 Range/Units 18:47 18:47 18:47 WBC 10.5 (4.5-11.0) X10^3/uL RBC 4.42 (4.0-5.2) X10^6/uL Hgb 13.9 (12.0-16.0) g/dL Hct 40.7 (36-46) % MCV 92.0 (80-100) fL MCH 31.3 (26-34) PG MCHC 34.0 (30-36) % RDW 14.3 (11.6-14.8) % Plt Count 312 (150-400) X10^3/uL Neut % (Auto) 49.1 L (50-75) % Lymph % (Auto) 36.1 (25-40) % Boundary % (Auto) 9.6 (3-14) % Eos % (Auto) 3.8 (2-4) % Baso % (Auto) 1.4 (0-2) % Neut # (Auto) 5100 (9851-5310) /uL Lymph # (Auto) 3800 (0769-5352) /uL Boundary # (Auto) 1000 H (0-900) /uL Eos # (Auto) 400 (0-450) /uL Baso # (Auto) 100 (0-100) /uL Sodium 139 (137-145) mmol/L Potassium 4.0 (3.4-5.1) mmol/L Chloride 106 (98-107) mmol/L Carbon Dioxide 29 (22-32) mmol/L BUN 9 (7-17) mg/dL Creatinine 0.54 (0.52-1.04) mg/dL Estimated GFR > 60.0 (>60) mL/min BUN/Creatinine Ratio 16.7 (6-22) Glucose 144 H (70-100) mg/dL Lactate 0.9 (0.7-2.1) mmol/L Calcium 8.9 (8.4-10.2) mg/dL Total Bilirubin 0.4 (0.2-1.3) mg/dL AST 20 (14-36) IU/L ALT 21 (<35) IU/L Alkaline Phosphatase 76 (38-126) U/L Total Protein 7.1 (6.3-8.2) g/dL Albumin 4.0 (3.5-5.0) g/dL Globulin 3.1 (1.7-4.1) g/dL Albumin/Globulin Ratio 1.3 (1.0-2.8) Lipase (23-300) U/L Chlamy pneumoniae PCR (Not Detect) Adenovirus (PCR) (Not Detect) B. pertussis DNA (PCR) (Not Detecte) B.parapertussis DNA PCR (Not Detecte) Coronavirus OC43 (PCR) (Not Detect) Coronavirus HKU1 (PCR) (Not Detect) Coronavirus 229E (PCR) (Not Detect) SARS-CoV-2 (PCR) (Negative) Coronavirus NL63 (PCR) (Not Detect) Human Metapneumovir PCR (Not Detect) Influenza Type A (PCR) (Not Detect) Influenza Type B (PCR) (Not Detect) M. pneumoniae (PCR) (Not Detect) Parainfluenza 1 (PCR) (Not Detect) Parainfluenza 2 (PCR) (Not Detect) Parainfluenza 3 (PCR) (Not Detect) Parainfluenza 4 (PCR) (Not Detect) RSV (PCR) (Not Detect) Entero/Rhino (PCR) (Not Detect) 07/14/21 07/14/21 07/14/21 Range/Units 18:47 18:47 20:25 WBC (4.5-11.0) X10^3/uL RBC (4.0-5.2) X10^6/uL Hgb (12.0-16.0) g/dL Hct (36-46) % MCV (80-100) fL MCH (26-34) PG MCHC (30-36) % RDW (11.6-14.8) % Plt Count (150-400) X10^3/uL Neut % (Auto) (50-75) % Lymph % (Auto) (25-40) % Boundary % (Auto) (3-14) % Eos % (Auto) (2-4) % Baso % (Auto) (0-2) % Neut # (Auto) (3036-5202) /uL Lymph # (Auto) (4551-5997) /uL Boundary # (Auto) (0-900) /uL Eos # (Auto) (0-450) /uL Baso # (Auto) (0-100) /uL Sodium (137-145) mmol/L Potassium (3.4-5.1) mmol/L Chloride (98-107) mmol/L Carbon Dioxide (22-32) mmol/L BUN (7-17) mg/dL Creatinine (0.52-1.04) mg/dL Estimated GFR (>60) mL/min BUN/Creatinine Ratio (6-22) Glucose (70-100) mg/dL Lactate (0.7-2.1) mmol/L Calcium (8.4-10.2) mg/dL Total Bilirubin (0.2-1.3) mg/dL AST (14-36) IU/L ALT (<35) IU/L Alkaline Phosphatase (38-126) U/L Total Protein (6.3-8.2) g/dL Albumin (3.5-5.0) g/dL Globulin (1.7-4.1) g/dL Albumin/Globulin Ratio (1.0-2.8) Lipase 88 (23-300) U/L Chlamy pneumoniae PCR Not detected (Not Detect) Adenovirus (PCR) Not detected (Not Detect) B. pertussis DNA (PCR) Not detected (Not Detecte) B.parapertussis DNA PCR Not detected (Not Detecte) Coronavirus OC43 (PCR) Not detected (Not Detect) Coronavirus HKU1 (PCR) Not detected (Not Detect) Coronavirus 229E (PCR) Not detected (Not Detect) SARS-CoV-2 (PCR) Negative Not detected (Negative) Coronavirus NL63 (PCR) Not detected (Not Detect) Human Metapneumovir PCR Not detected (Not Detect) Influenza Type A (PCR) Not detected (Not Detect) Influenza Type B (PCR) Not detected (Not Detect) M. pneumoniae (PCR) Not detected (Not Detect) Parainfluenza 1 (PCR) Not detected (Not Detect) Parainfluenza 2 (PCR) Not detected (Not Detect) Parainfluenza 3 (PCR) Not detected (Not Detect) Parainfluenza 4 (PCR) Not detected (Not Detect) RSV (PCR) Not detected (Not Detect) Entero/Rhino (PCR) Not detected (Not Detect) Point of Care Testing Test Results Negative Urine Dip Bedside Urine Glucose Negative Bedside Urine Bilirubin - Negative Bedside Urine Ketone - Negative Urine Specific [place] 1.015 Bedside Urine Occult Blood - Negative Bedside Urine pH 6.5 Bedside Urine Protein - Negative Bedside Urine Urobilinogen - Negative Bedside Urine Nitrite - Negative Bedside Urine Leukocytes - Negative Esterase Point of care testing: Point of Care Testing Test Results Negative Urine Dip Bedside Urine Glucose Negative Bedside Urine Bilirubin - Negative Bedside Urine Ketone - Negative Urine Specific [place] 1.015 Bedside Urine Occult Blood - Negative Bedside Urine pH 6.5 Bedside Urine Protein - Negative Bedside Urine Urobilinogen - Negative Bedside Urine Nitrite - Negative Bedside Urine Leukocytes - Negative Esterase Imaging Data Chest x-ray: Radiologist's Impression: FINDINGS:? ? Surgical changes and devices:? None.? ? Lungs and pleura:? Lungs are clear.? No pleural effusions or pneumothorax.? ? Mediastinum:? Mediastinal contours are normal.? Heart size is normal.? ? Bones and chest wall:? No suspicious bony abnormalities.? Soft tissues appear unremarkable.? ? IMPRESSION:? No acute cardiopulmonary disease. ? ? Dictated by: German Montenegro M.D. on 07/14/2021 at 18:47 ? ? ECG Data Interpretation: Sinus rhythm at a rate of 72 Normal intervals, normal axis No acute ischemic changes MDM Narrative Medical decision making narrative: 40-year-old woman with 24 hours of myalgias, nausea and now worsening migraine. Workup is unremarkable. Symptoms are most consistent with a viral upper respiratory syndrome and mild asthma exacerbation. She is not in a respiratory distress. She responded nicely to fluids Toradol Reglan and Benadryl with the headache. She has plenty of albuterol as MDI and as nebulized solution to use at home with needed. She would appreciate a course of Zofran to have available to her and at this point is not showing any signs of life-threatening abnormalities, no bacterial pneumonia, no sepsis, no acute coronary syndrome, no pulmonary embolism and no signs of stroke or meningitis. She is safe for home discharge Discharge Plan Departure Patient Disposition: Home Clinical Impression: Viral upper respiratory infection, Asthma with exacerbation, Migraine Instructions: DI for Viral Upper Respiratory Infection -- Adult Activity Restrictions/Additional Instructions: Thank you for coming in today Your workup was very reassuring. There is no reason for hospital admission at this time and there is no evidence of acute life-threatening issue that would require antibiotics. I do believe you have upper respiratory infection that is exacerbating your asthma. You were given fluids, Toradol, Reglan, Benadryl and steroids to help with your migraine headache as well. I will recommend 5 days of 20 mg of prednisone for your asthma in the setting of this respiratory infection. Please use your nebulizer and puffer as needed. Prescription for prednisone as well as Zofran/ondansetron to help with nausea have been electronically transmitted to [facility]. If you do have worsening symptoms or additional complaints please feel free to return to the ER Prescriptions: New ondansetron 4 mg tablet,disintegrating 4 mg PO Q8H PRN (Reason: nausea and vomiting) Qty: 14 0RF prednisone 20 mg tablet 20 mg PO DAILY Qty: 5 0RF No Action azithromycin 250 mg tablet See Rx Instructions PO .COMPLEX Qty: 6 0RF Rx Instructions: take 500 mg today (day 1), then 250 mg for 4 days (days 2-5) PO trazodone 50 mg tablet 75 mg PO BEDTIME PRN (Reason: insomnia) Qty: 135 0RF sumatriptan succinate 25 mg tablet See Rx Instructions .ROUTE .COMPLEX Qty: 8 0RF Dose Instruction: take 1 tab at onset of headache; if no relief may repeat 1 tab after at least 2 hrs; max = 4 tabs/24 hr Rx Instructions: take 1 tab at onset of headache; if no relief may repeat 1 tab after at least 2 hrs; max = 4 tabs/24 hr albuterol sulfate [ProAir HFA] 90 mcg/actuation HFA aerosol inhaler 2 puff inhalation Q3-4H PRN (Reason: shortness of breath or wheezing) Qty: 18 3RF acetaminophen 500 mg capsule 1,000 mg PO Q6H PRN0RF diphenhydramine HCl [Benadryl] 25 mg capsule 25 mg PO .PRN 0RF norethindrone (contraceptive) 0.35 mg tablet 0.35 mg PO DAILY Qty: 84 4RF Rx Instructions: Take once daily at same time every day. albuterol sulfate 90 mcg/actuation HFA aerosol inhaler 2 puff inhalation Q6H PRN (Reason: shortness of breath or wheezing) Qty: 6.7 0RF Referrals: Nisha Juarez ARNP [Primary Care Provider] -
[2021-07-14] MEDS: methylPREDNISolone 125 MG/2 ML VIAL IV (20:14)
[2021-07-14] MEDS: diphenhydrAMINE 50 MG/ML VIAL 25 MG IV (20:14)
[2021-07-14] MEDS: KETOROLAC 30 MG/ML VIAL 15 MG IV (20:15)
[2021-07-14] MEDS: METOCLOPRAMIDE 10 MG/2 ML INJ IV (20:16)
[2021-07-14 20:24] LABS: Lipase 88 U/L (23-300)
[2021-07-14 21:28] LABS: Adenovirus Not Detected (Not Detect); Bordetella pertussis Not Detected (Not Detecte); Chlamydophila pneumoniae Not Detected (Not Detect); Coronavirus 229E Not Detected (Not Detect); Coronavirus HKU1 Not Detected (Not Detect); Coronavirus NL 63 Not Detected (Not Detect); Coronavirus OC43 Not Detected (Not Detect); Human Metapneumovirus Not Detected (Not Detect); Human Rhinovirus/Enterovirus Not Detected (Not Detect); Influenza A Not Detected (Not Detect); Influenza B Not Detected (Not Detect); Mycoplasma pneumoniae Not Detected (Not Detect); Parainfluenza Virus 1 Not Detected (Not Detect); Parainfluenza Virus 2 Not Detected (Not Detect); Parainfluenza Virus 3 Not Detected (Not Detect); Parainfluenza Virus 4 Not Detected (Not Detect); Respiratory Syncytial Virus Not Detected (Not Detect); SARS- CoV-2 Not Detected (Not Detecte)
[2021-07-14 22:01] LABS: B. parapertussis Not Detected (Not Detecte)
== END 2021-07-14 21:45 | disposition home or self-care (01) ==
PROVIDERS: Emergency Provider Emergency Medicine; PCP Registered Nurse
DX: J06.9 Acute upper respiratory infection, unspecified (principal); B97.89 Other viral agents as the cause of diseases classified elsewhere; J45.901 Unspecified asthma with (acute) exacerbation; G43.909 Migraine, unspecified, not intractable, without status migrainosus; Z87.891 Personal history of nicotine dependence; Z20.822 Contact with and (suspected) exposure to COVID-19
CPT/HCPCS: 36415; 71046; 80053; 81003; 81025; 83605; 83690; 85025; 87633; 87635; 93005; 94150; 94640; 96374; 96375; 99284; C9803; J1200; J1885; J2765; J2930

== ENCOUNTER → 2021-07-20 16:13 | Outpatient (CLI) | payer OTHER, MEDICAID, SELFPAY ==
[2020-03-02 11:12] VITALS: BMI 42.7
== END ==
PROVIDERS: PCP Family Medicine; Visit Provider Student in an Organized Health Care Education/Training Program
DX: J02.9 Acute pharyngitis, unspecified (principal)
CPT/HCPCS: 87070; 87880

== ENCOUNTER 2021-09-23 12:55 | Emergency (ER) | payer OTHER, MEDICAID, SELFPAY ==
[2020-03-02 11:12] VITALS: BMI 42.7
[2021-09-23 13:08] VITALS: BP 130/93; PULSE 87; RESP 16; TEMP 36.1; O2SAT 98; BMI 36.6
--- NOTE | 2021-09-23 14:38 | ED_ITS ---
HPI - Headache <Maurilio Kumar PA-C - Last Filed: 09/23/21 19:40> General Chief Complaint: Headache Stated Complaint: Migraine x 3 days. Can't keep food down Time Seen by Provider: 09/23/21 14:06 Mode of arrival: Ambulatory History of Present Illness HPI Narrative: Patient is a 41-year-old female with a history of migraines who presents to the emergency department for an evaluation of a migraine. Patient explains that she has been experiencing a migraine for the past 3 days, noting that she has been taking her sumatriptan home along with ibuprofen without any improvement in her condition. She explains that she usually ?waits out? her migraines, however she presents today out of concern for worsening nausea and her inability to ?keep anything down?. Of note, patient denies any trauma or injury to the head recently that could explain her symptoms. She denies fever, chills, chest pain, cough, shortness of breath, diarrhea, constipation, abdominal pain, dysuria, hematuria, sore throat, earache, rash, changes in vision or hearing, unilateral weakness, word-finding difficulty, slurred speech, syncope, or any other concerning symptoms. No further concerns were voiced at this time. Related Data Home Medications Medication Instructions Recorded Confirmed diphenhydramine HCl 25 mg capsule 25 mg PO .PRN 01/01/20 07/20/21 (Benadryl) acetaminophen 500 mg capsule 1,000 mg PO Q6H PRN 07/17/20 07/20/21 Previous Rx's Medication Instructions Recorded norethindrone (contraceptive) 0.35 0.35 mg PO DAILY PCOS #84 tabs 07/06/20 mg tablet trazodone 50 mg tablet 75 mg PO BEDTIME PRN insomnia #135 08/27/20 tabs albuterol sulfate 90 mcg/actuation 2 puff inhalation Q6H PRN 02/26/21 aerosol inhaler shortness of breath or wheezing #6.7 grams albuterol sulfate 90 mcg/actuation 2 puff inhalation Q3-4H PRN 06/24/21 aerosol inhaler (ProAir HFA) shortness of breath or wheezing #18 grams ondansetron 4 mg disintegrating 4 mg PO Q8H PRN nausea and 07/14/21 tablet vomiting #14 tabs prednisone 20 mg tablet 20 mg PO DAILY #5 tabs 07/14/21 benzonatate 200 mg capsule 200 mg PO TID PRN cough #14 caps 07/20/21 sumatriptan succinate 25 mg tablet See Rx Instructions .Route 07/30/21 .COMPLEX #8 tabs ondansetron 4 mg disintegrating 4 mg PO Q8H PRN nausea and 09/23/21 tablet vomiting 3 days #12 tabs Allergies Allergy/AdvReac Type Severity Reaction Status Date / Time metformin Allergy Severe feels like Verified 09/23/21 13:08 not herself/feels bad Penicillins Allergy Unknown Verified 09/23/21 13:08 aspirin [ASPIRIN] AdvReac Mild Verified 09/23/21 13:08 hydrocodone [HYDROCODONE] AdvReac Unknown head ache Verified 09/23/21 13:08 Review of Systems <Maurilio Kumar PA-C - Last Filed: 09/23/21 19:40> Constitutional Constitutional: Denies chills, Denies fatigue, Denies fever(s), Denies frequent falls, Reports headache(s), Denies lethargy and Denies weakness ENT Ears, Nose, Mouth, and Throat: Reports headache(s) and Denies neck pain Cardiovascular Cardiovascular: Denies chest pain, Denies irregular heart rhythm, Denies l ightheadedness, Denies palpitations, Denies dyspnea, Denies dyspnea on exertion and Denies orthopnea Respiratory Respiratory: Denies dyspnea and Denies dyspnea on exertion Gastrointestinal Gastrointestinal: Denies abdominal pain, Denies change in bowel habits, Denies diarrhea, Reports nausea and Reports vomiting Genitourinary Genitourinary: Denies hematuria, Denies flank pain, Denies urinary incontinence and Denies urinary urgency Musculoskeletal Musculoskeletal: Denies back pain, Denies muscle weakness, Denies neck pain, Denies numbness and Denies tingling Integumentary/Breasts Skin/Breast: Denies pruritus, Denies erythema, Denies rash and Denies wounds Neurologic Neurologic: Denies frequent falls, Reports headache(s), Denies numbness, Denies tingling and Denies weakness Endocrine Endocrine: Denies fatigue and Denies palpitations Patient History <Maurilio Kumar PA-C - Last Filed: 09/23/21 19:40> Medical History Anxiety Asthma Carpal tunnel syndrome Chicken pox (~1984) Finger pain, left Fractures Headache Migraine Tennis elbow Wears glasses Surgical History Anesthesia History of appendectomy (~2002) History of oral surgery Family History Father History of heart disease Hypertension Wears hearing aid Brother Hyperlipidemia Mother No significant medical problems Social History household members: none Smoking Status: Current every day smoker alcohol intake: current Smoking Status: Current every day smoker tobacco type: cigarettes alcohol intake frequency: holidays/special occasions only Substance Use Type: does not use Exam <Maurilio Kumar PA-C - Last Filed: 09/23/21 19:40> Narrative Exam Narrative: GENERAL: 41 year old patient appears stated age. Well-developed patient, in no acute distress. Large body habitus. HEAD: Atraumatic. Normocephalic. EYES: Pupils equal round and reactive. Extraocular motions intact. No scleral icterus. No injection or drainage. ENT: Nose without bleeding, purulent drainage. Throat without erythema, tonsillar hypertrophy or exudate. Airway patent. NECK: Trachea midline. Non tender CARDIOVASCULAR: Regular rate and rhythm without murmurs, gallops, or rubs. RESPIRATORY: Clear to auscultation. Breath sounds equal bilaterally. No wheezes, rales, or rhonchi. GASTROINTESTINAL: Abdomen soft, non-tender, nondistended. EXTREMITIES: No edema or joint tenderness. BACK: Nontender without deformity or crepitance. No flank tenderness. NEURO: AOx3. Cranial nerves 2-12 grossly intact. Good sensation light touch appreciated throughout the bilateral upper and lower extremities. Gross motor function intact throughout the bilateral upper and lower extremities. No pronator drift. SKIN: No rash or erythema of visible areas Initial Vital Signs Initial Vital Signs: Vital Signs Temperature 97.0 F L 09/23/21 13:08 Pulse Rate 87 09/23/21 13:08 Respiratory Rate 16 09/23/21 13:08 Blood Pressure 130/93 H 09/23/21 13:08 Pulse Oximetry 98 09/23/21 13:08 Oxygen Delivery Method 09/23/21 13:08 <Kiersten Huggins DO - Last Filed: 09/24/21 07:28> Initial Vital Signs Initial Vital Signs: Vital Signs Temperature 97.0 F L 09/23/21 13:08 Pulse Rate 87 09/23/21 13:08 Respiratory Rate 16 09/23/21 13:08 Blood Pressure 130/93 H 09/23/21 13:08 Pulse Oximetry 98 09/23/21 13:08 Oxygen Delivery Method 09/23/21 13:08 Course <Maurilio Kumar PA-C - Last Filed: 09/23/21 19:40> Course Course Narrative: IV normal saline, Decadron, Benadryl,, Reglan, and Toradol administered. Patient explains that she is feeling significantly better following administration of these medications. Orders Ordered: Discontinued Medications Dexamethasone (Dexamethasone 10 Mg/Ml Vial) 10 mg IV NOW ONE Stop: 09/23/21 14:37 Last Admin: 09/23/21 14:53 Dose: 10 mg Documented By: AT Diphenhydramine HCl (Diphenhydramine 50 Mg/Ml Vial) 25 mg IV NOW ONE Stop: 09/23/21 14:37 Last Admin: 09/23/21 14:52 Dose: 25 mg Documented By: AT Sodium Chloride (Normal Saline 0.9%) 1,000 mls @ 1,000 mls/hr IV BOLUS ONE Stop: 09/23/21 15:35 Last Infusion: 09/23/21 16:22 Dose: 0 mls/hr Documented By: Admin: 09/23/21 14:50 Dose: 1,000 mls/hr Documented By: AT Ketorolac Tromethamine (Ketorolac 30 Mg/Ml Vial) 15 mg IV NOW ONE Stop: 09/23/21 14:37 Last Admin: 09/23/21 14:53 Dose: 15 mg Documented By: AT Metoclopramide HCl (Metoclopramide 10 Mg/2 Ml Inj) 10 mg IV NOW ONE Stop: 09/23/21 14:37 Last Admin: 09/23/21 14:51 Dose: 10 mg Documented By: AT Vital Signs Vital signs: Vital Signs - 8 hr 09/23/21 13:08 09/23/21 16:22 Temperature 97.0 F L Pulse Rate 87 79 Respiratory Rate 16 16 Blood Pressure 130/93 H 109/66 Pulse Oximetry 98 100 Oxygen Delivery Method Room Air Room Air <Kiersten Huggins DO - Last Filed: 09/24/21 07:28> Orders Ordered: Discontinued Medications Dexamethasone (Dexamethasone 10 Mg/Ml Vial) 10 mg IV NOW ONE Stop: 09/23/21 14:37 Last Admin: 09/23/21 14:53 Dose: 10 mg Documented By: AT Diphenhydramine HCl (Diphenhydramine 50 Mg/Ml Vial) 25 mg IV NOW ONE Stop: 09/23/21 14:37 Last Admin: 09/23/21 14:52 Dose: 25 mg Documented By: AT Sodium Chloride (Normal Saline 0.9%) 1,000 mls @ 1,000 mls/hr IV BOLUS ONE Stop: 09/23/21 15:35 Last Infusion: 09/23/21 16:22 Dose: 0 mls/hr Documented By: Admin: 09/23/21 14:50 Dose: 1,000 mls/hr Documented By: AT Ketorolac Tromethamine (Ketorolac 30 Mg/Ml Vial) 15 mg IV NOW ONE Stop: 09/23/21 14:37 Last Admin: 09/23/21 14:53 Dose: 15 mg Documented By: AT Metoclopramide HCl (Metoclopramide 10 Mg/2 Ml Inj) 10 mg IV NOW ONE Stop: 09/23/21 14:37 Last Admin: 09/23/21 14:51 Dose: 10 mg Documented By: AT Vital Signs Vital signs: Vital Signs - 8 hr 09/23/21 13:08 09/23/21 16:22 Temperature 97.0 F L Pulse Rate 87 79 Respiratory Rate 16 16 Blood Pressure 130/93 H 109/66 Pulse Oximetry 98 100 Oxygen Delivery Method Room Air Room Air MDM - Headache <Maurilio Kumar PA-C - Last Filed: 09/23/21 19:40> Lab Data Labs: Urine Dip Bedside Urine Glucose Negative Bedside Urine Bilirubin - Negative Bedside Urine Ketone - Negative Urine Specific Mclean 1.015 Bedside Urine Occult Blood - Negative Bedside Urine pH 7.5 Bedside Urine Protein - Negative Bedside Urine Urobilinogen - Negative Bedside Urine Nitrite - Negative Bedside Urine Leukocytes - Negative Esterase MDM Narrative Medical decision making narrative: Differential diagnosis to consider but not limited to migraine headache versus tension headache versus cluster headache. Symptoms improved following administration of migraine cocktail. I informed the patient I would be sending her home with a prescription for medications. With her nausea. Patient expresses understanding and agrees to plan. I urged to follow up with primary care for further evaluation and management. Strict return precautions were discussed with the patient prior to discharge. <Kiersten Nataleeiram, DO - Last Filed: 09/24/21 07:28> Lab Data Labs: Urine Dip Bedside Urine Glucose Negative Bedside Urine Bilirubin - Negative Bedside Urine Ketone - Negative Urine Specific Mclean 1.015 Bedside Urine Occult Blood - Negative Bedside Urine pH 7.5 Bedside Urine Protein - Negative Bedside Urine Urobilinogen - Negative Bedside Urine Nitrite - Negative Bedside Urine Leukocytes - Negative Esterase Discharge Plan Departure Patient Disposition: Home Clinical Impression: Migraine Instructions: DI for Migraine Activity Restrictions/Additional Instructions: *You have been diagnosed with migraine *What to do: *Please continue to take your regular medications as directed. [X] New medication prescriptions sent to your pharmacy: [facility] [place] [ ] New medication written as a paper prescription [ ] No new medications given You were evaluated in the emergency department today for migraine headache. I am glad that we were able to help alleviate your discomfort. I have prescribed you a course of medications to help alleviate your nausea. Please continue using your migraine medications as needed. I recommend following up with the primary care provider within the next week or so for further evaluation and management. Do not hesitate to return to the emergency department if you experience worsening pain, changes in vision or hearing, numbness or tingling in the extremities, speech difficulty, or any other concerning symptoms. *Please follow up with your primary care provider in 2-3 days, call for an appointment. Let them know you were seen in the Emergency Department and that we ask that you be seen in follow up. We will electronically transmit a record of today's note if your PCP is in our system *If you do not have a primary care provider please contact the [facility] Resource line at [phone]. They will ask some questions about your medical history and help get you set up with a doctor in the community. *Return to Emergency Department if you should have any new, worsening or concerning symptoms, such as fever greater than 101 F, shaking chills, worsening pain, persistent vomiting or other bothersome symptoms. Prescriptions: New ondansetron 4 mg tablet,disintegrating 4 mg PO Q8H PRN (Reason: nausea and vomiting) 3 Days Qty: 12 0RF No Action benzonatate 200 mg capsule 200 mg PO TID PRN (Reason: cough) Qty: 14 0RF trazodone 50 mg tablet 75 mg PO BEDTIME PRN (Reason: insomnia) Qty: 135 0RF albuterol sulfate [ProAir HFA] 90 mcg/actuation HFA aerosol inhaler 2 puff inhalation Q3-4H PRN (Reason: shortness of breath or wheezing) Qty: 18 3RF sumatriptan succinate 25 mg tablet See Rx Instructions .ROUTE .COMPLEX Qty: 8 7RF Dose Instruction: TAKE 1 TABLET AT ONSET OF HEADACHE; IF NO RELIEF MAY REPEAR 1 TABLET AFTER AT LEAST 2 HOURS. MAX DOSING 4 TABLETS IN 24 HOURS. Rx Instructions: TAKE 1 TABLET AT ONSET OF HEADACHE; IF NO RELIEF MAY REPEAR 1 TABLET AFTER AT LEAST 2 HOURS. MAX DOSING 4 TABLETS IN 24 HOURS. acetaminophen 500 mg capsule 1,000 mg PO Q6H PRN diphenhydramine HCl [Benadryl] 25 mg capsule 25 mg PO .PRN norethindrone (contraceptive) 0.35 mg tablet 0.35 mg PO DAILY Qty: 84 4RF Rx Instructions: Take once daily at same time every day. ondansetron 4 mg tablet,disintegrating 4 mg PO Q8H PRN (Reason: nausea and vomiting) Qty: 14 0RF prednisone 20 mg tablet 20 mg PO DAILY Qty: 5 0RF albuterol sulfate 90 mcg/actuation HFA aerosol inhaler 2 puff inhalation Q6H PRN (Reason: shortness of breath or wheezing) Qty: 6.7 0RF Referrals: Maureen Montana MD [Primary Care Provider] - Visit Report Forms: Patient Portal/API <Kiersten Huggins DO - Last Filed: 09/24/21 07:28> Cosign ED Attending Toddature Attestation: I was immediately available in the department for consultation. Documentation has been reviewed. I agree with assessment and plan.
[2021-09-23] MEDS: SODIUM CHLORIDE 0.9% 1,000 ML 1000 ML IV (14:50)
[2021-09-23] MEDS: METOCLOPRAMIDE 10 MG/2 ML INJ IV (14:51)
[2021-09-23] MEDS: diphenhydrAMINE 50 MG/ML VIAL 25 MG IV (14:52)
[2021-09-23] MEDS: KETOROLAC 30 MG/ML VIAL 15 MG IV (14:53)
[2021-09-23] MEDS: DEXAMETHASONE 10 MG/ML VIAL IV (14:53)
[2021-09-23 16:22] VITALS: BP 109/66; PULSE 79; RESP 16; O2SAT 100
== END 2021-09-23 16:23 | disposition home or self-care (01) ==
PROVIDERS: Emergency Provider Physician Assistant; PCP Family Medicine
DX: G43.909 Migraine, unspecified, not intractable, without status migrainosus (principal); R11.2 Nausea with vomiting, unspecified
CPT/HCPCS: 81003; 96361; 96374; 96375; 99283; 99284; J1100; J1200; J1885; J2765